=== PATIENT | male | born 1945 | race Caucasian/White ===

== ENCOUNTER 2019-02-27 14:28 | Inpatient (IN) | payer MEDICARE ==
[2019-02-27] MEDS ORDERED: VANCOMYCIN HCL INJ 1000 MG VIAL IV ONE (15:37)
[2019-02-27] MEDS ORDERED: CEFTRIAXONE 1 GM/D5W RTU 1 GM/50 ML RTUPB IV ONE (15:38)
--- NOTE | 2019-02-27 15:41 | ER Document Report ---
ED Medical Screen (RME) - General Chief Complaint: Wound Infection Stated Complaint: POSSIBLE FOOT INFECTION Time Seen by Provider: 02/27/19 15:32 Primary Care Provider: BRIDGER DELGADO PA-C [Primary Care Provider] - Follow up as needed TRAVEL OUTSIDE OF THE [place] IN LAST 30 DAYS: No - HPI Notes: 02/27/19 15:38 Patient is a 73-year-old male with no significant past medical history who presents to the emergency department per the direction of wound clinic for evaluation of possible osteomyelitis/gangrene to the left foot. Patient states that it started with a plantar wart that he was taking out on his own a little over 2 months ago. Patient was then on antibiotics for 1.5 months, but the wound began getting worse which prompted him to get seen by wound clinic. Lalo patel has been routinely seen by wound clinic over the past 3 weeks, but over the past week it has significantly worsened. He is otherwise eating and drinking without difficulty. No other concerns or complaints. Denies drug allergies. Denies GOMES, fever, neck pain, URI, CP, SOB, Abd pain. I have treated and performed a rapid initial assessment of this patient. A comprehensive ED assessment and evaluation of the patient, analysis of test results and completion of medical decision making process will be conducted by additional ED providers. PHYSICAL EXAMINATION: GENERAL: Well-appearing, well-nourished and in no acute distress. A&Ox4. Answers questions appropriately. LUNGS: Breath sounds clear to auscultation bilaterally and equal. No wheezes rales or rhonchi. HEART: Regular rate and rhythm without murmurs, rubs, gallops. Left foot: 3 areas of deep wounds noted with foul smell and some necrosis present. + erythema, swelling, and tenderness to the great toe/dorsal foot. Wound are primarily distal/medial dorsal and one plantar. - Related Data Allergies/Adverse Reactions: No Known Allergies Allergy (Unverified 05/18/14 10:23) Past Medical History - Past Medical History Cardiac Medical History: Denies: Hx Coronary Artery Disease, Hx Hypertension Endocrine Medical History: Denies: Hx Diabetes Mellitus Type 1, Hx Diabetes Mellitus Type 2 - Immunizations Hx Diphtheria, Pertussis, Tetanus Vaccination: No Physical Exam - Vital signs Vitals: Temp Pulse Resp BP Pulse Ox 98.2 F 97 20 138/57 H 96 02/27/19 14:49 02/27/19 14:49 02/27/19 14:49 02/27/19 14:49 02/27/19 14:49 Course - Vital Signs Vital signs: Temp Pulse Resp BP Pulse Ox 98.2 F 97 20 138/57 H 96 02/27/19 14:49 02/27/19 14:49 02/27/19 14:49 02/27/19 14:49 02/27/19 14:49 Doctor's Discharge - Discharge Referrals: BRIDGER DELGADO, PAApolinarC [Primary Care Provider] - Follow up as needed
[2019-02-27 16:38] LABS: ABSOLUTE BASOPHILS # (AUTO) 0.1 10^3/uL (0.0-0.2); ABSOLUTE NEUT (AUTO) 10.4 10^3/uL (1.7-8.2); BASOPHILS % (AUTO) 0.4 % (0-2); EOSINOPHILS % (AUTO) 0.3 % (0-6); HEMATOCRIT 44.7 % (37.9-51.0); LYMPHOCYTES % (AUTO) 7.3 % (13-45); MEAN CORPUSCULAR HEMOGLOBIN 36.1 pg (27.0-33.4); MEAN CORPUSCULAR HGB CONC 33.6 g/dL (32.0-36.0); MEAN CORPUSCULAR VOLUME 107 fl (80-97); MONOCYTES % (AUTO) 14.6 % (3-13); PLATELET COUNT 295 10^3/uL (150-450); RED BLOOD COUNT 4.16 10^6/uL (4.35-5.55); RED CELL DISTRIBUTION WIDTH 17.5 % (11.5-14.0); SEGMENTED NEUTROPHILS % (AUTO) 77.4 % (42-78); TOTAL CELLS COUNTED % (AUTO) 100 %; WHITE BLOOD COUNT 13.4 10^3/uL (4.0-10.5)
--- NOTE | 2019-02-27 16:47 | RADIOLOGY REPORT (SQ) ---
EXAM DESCRIPTION: FOOT LEFT COMPLETE COMPLETED DATE/TIME: 02/27/2019 4:32 pm REASON FOR STUDY: ?osteomyelitis, pain/infection COMPARISON: None. NUMBER OF VIEWS: Three views. TECHNIQUE: AP, lateral and oblique radiographic images acquired of the left foot. LIMITATIONS: None. FINDINGS: MINERALIZATION: Normal. BONES: At the great toe, lateral aspect distal phalanx there is demineralization worrisome for osteom yelitis. JOINTS: No effusions. SOFT TISSUES: In the medial left midfoot, along the foot arch there is a 3 cm diameter soft tissue ul cer without radiopaque foreign body. No underlying bony demineralization or periostitis of the 1st m etatarsal to suggest osteomyelitis OTHER: Moderate-sized plantar and dorsal calcaneal spurs IMPRESSION: Bony resorption along the lateral aspect great toe distal phalanx worrisome for early ch anges of osteomyelitis. 3 cm soft tissue ulcer along the medial left foot arch without underlying aggressive bony demineraliz ation or periostitis at the 1st metatarsal. TECHNICAL DOCUMENTATION: JOB ID: [id number] [employer]- All Rights Reserved Reading location - IP/workstation name: [email or web address]
[2019-02-27 17:01] LABS: ALANINE AMINOTRANSFERASE 11 U/L (21-72); ALBUMIN 3.9 g/dL (3.5-5.0); ALKALINE PHOSPHATASE 86 U/L (38-126); ANION GAP 12 (5-19); ASPARTATE AMINO TRANSFERASE 14 U/L (17-59); BILIRUBIN,DIRECT 0.5 mg/dL (0.0-0.4); BILIRUBIN,TOTAL 0.8 mg/dL (0.2-1.3); BLOOD UREA NITROGEN 16 mg/dL (7-20); CALCIUM 9.8 mg/dL (8.4-10.2); CARBON DIOXIDE 26 mmol/L (22-30); CHLORIDE 98 mmol/L (98-107); GLUCOSE 111 mg/dL (75-110); POTASSIUM 4.7 mmol/L (3.6-5.0); SODIUM 136.4 mmol/L (137-145)
[2019-02-27 17:36] LABS: C-REACTIVE PROTEIN 24.4 mg/L (<10.0)
--- NOTE | 2019-02-27 22:01 | ER Document Report ---
ED General - General Chief Complaint: Wound Infection Stated Complaint: POSSIBLE FOOT INFECTION Time Seen by Provider: 02/27/19 15:32 Primary Care Provider: BRIDGER DELGADO PA-C [ALLIED HEALTH PROFESSIONAL] - Follow up as needed Notes: Patient is a pleasant 73-year-old male who presents with complaint of infection and necrosis of the left foot. Patient says 3 weeks ago he had what he thought was a plantar wart on the left big toe. He twisted and pulled off. He then went to his primary care doctor placed him on antibiotic. His foot is continue worse and therefore he saw his doctor again was referred to wound clinic. He went to wound clinic today and was told to come to the ER. He is not a diabetic. The only medication he takes on a regular basis is aspirin. He has some facial droop on the right side related to obvious polio infection. He is otherwise healthy. No other complaints at this time. TRAVEL OUTSIDE OF THE [place] IN LAST 30 DAYS: No - Related Data Allergies/Adverse Reactions: No Known Allergies Allergy (Unverified 05/18/14 10:23) Past Medical History - Social History Smoking Status: Current Every Day Smoker Frequency of alcohol use: None Drug Abuse: None Family History: Reviewed & Not Pertinent Patient has suicidal ideation: No Patient has homicidal ideation: No - Past Medical History Cardiac Medical History: Denies: Hx Coronary Artery Disease, Hx Hypertension Endocrine Medical History: Denies: Hx Diabetes Mellitus Type 1, Hx Diabetes Mellitus Type 2 Renal/ Medical History: Denies: Hx Peritoneal Dialysis - Immunizations Hx Diphtheria, Pertussis, Tetanus Vaccination: No Review of Systems - Review of Systems Notes: My Normal Review Basic REVIEW OF SYSTEMS: CONSTITUTIONAL : Denies fever, chills, or sweats. Denies recent illness. EENT: Denies eye, ear, throat, or mouth pain or symptoms. Denies nasal or s inus congestion. RESPIRATORY: Denies cough, cold, or chest congestion. Denies shortness of breath, difficulty breathing, or wheezing. GASTROINTESTINAL: Denies abdominal pain. Denies nausea, vomiting, or diarrhea. MUSCULOSKELETAL: Infection of left foot. SKIN: Denies rash or skin lesions. HEMATOLOGIC : Denies easy bruising or bleeding. NEUROLOGICAL: Denies sensory or motor loss. ALL OTHER SYSTEMS REVIEWED AND NEGATIVE. Physical Exam - Vital signs Vitals: Temp Pulse Resp BP Pulse Ox 98.2 F 97 20 138/57 H 96 02/27/19 14:49 02/27/19 14:49 02/27/19 14:49 02/27/19 14:49 02/27/19 14:49 - Notes Notes: General Appearance: Well nourished, alert, cooperative, no acute distress, no obvious discomfort. Vitals: reviewed, See vital signs table. Eyes: PERRL, EOMI, Conjuctiva clear Lungs: No wheezing, No rales, No rhonci, No accessory muscle use, good air exchange bilaterally. Heart: Normal rate, Regular rythm, No murmur, no rub Abdomen: Normal BS, soft, No rigidity, No abdominal tenderness Extremities: strength 5/5 in all extremities, good pulses in all extremities patient has most complete necrosis of the left big toe. He then has swelling and redness going into his foot especially on the medial aspect. He then has necrosis of portions of the soft tissue on the medial aspect of the left foot. Skin: warm, dry, appropriate color, no rash Neuro: speech clear, oriented x 3, normal affect, responds appropriately to questions. Course - Re-evaluation Re-evalutation: 02/27/19 22:01 I evaluate the patient's foot and gangrenous think probably needs urgent surgical attention. I have called our general surgeon, Dr. Watkins, is currently putting in a central line and will call me back as soon as he is done. 02/27/19 23:19 Dr. Watkins did evaluate the patient and says he will admit the to his service and keep him n.p.o. and take him to the OR in the morning. Dictation of this chart was performed using voice recognition software; therefore, there may be some unintended grammatical errors. 02/27/19 23:19 - Vital Signs Vital signs: Temp Pulse Resp BP Pulse Ox 98.2 F 97 20 138/57 H 96 02/27/19 14:49 02/27/19 14:49 02/27/19 14:49 02/27/19 14:49 02/27/19 14:49 - Laboratory Result Diagrams: 02/27/19 16:12 02/27/19 16:12 Laboratory results interpreted by me: 02/27/19 02/27/19 02/27/19 16:12 16:12 16:12 WBC 13.4 H RBC 4.16 L MCV 107 H MCH 36.1 H RDW 17.5 H Lymphocytes % 7.3 L Monocytes % 14.6 H Absolute Neutrophils 10.4 H Absolute Monocytes 2.0 H Sodium 136.4 L Glucose 111 H Direct Bilirubin 0.5 H AST 14 L ALT 11 L C-Reactive Protein 24.4 H Total Protein 9.0 H Discharge - Discharge Clinical Impression: Gangrene of foot Condition: Stable Disposition: ADMITTED INPATIENT Admitting Provider: Surgicalist
[2019-02-28] MEDS ORDERED: PIPERACILLIN/TAZOBACTAM 3.375 GM VIAL IV PRN (00:54)
[2019-02-28] MEDS ORDERED: PIPERACILLIN SODIUM/TAZOBACTAM 3.375 GM in NORMAL SALINE 100 ML IV ONE (01:00)
--- NOTE | 2019-02-28 07:14 | HISTORY AND PHYSICAL E ---
History and Physical NAME: JACQUES PETER : 1945 AGE: 73Y ADMITTED: 02/27/2019 ROOM: CHIEF COMPLAINT: Pains in left foot. HISTORY OF PRESENT ILLNESS: This is a 73-year-old male who removed a plantar wart on the left foot about 6 weeks ago. He claimed he just twisted it and removed it. 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 He walks with a cane. About 4 weeks later, noted to have swelling and redness of the left foot and consulted an urgent care center in [place] and subsequently [facility]. The patient was seen at the [facility] on 02/27/2019 where some debridement was done and patient subsequently sent to ED. The patient admits to having warm and cold sensation off and on for the past week, but denies any fever. He claims the left foot was red all the way up to almost the knee in the past week and seems to have improved. He was on p.o. antibiotics given by the Urgent Care Center. PAST MEDICAL HISTORY: History of hypertension, but does not take any medications. He is taking baby aspirin, which he claimed was for his hypertension. PAST SURGICAL HISTORY: History of surgery for left clubfoot at age 7. REVIEW OF SYSTEMS: Denies any fever. Admits to having cold and warm sensation off and on for the past week. Denies any headaches, cough, chest pains, abdominal pains, diarrhea, or constipation. No nausea or vomiting. The patient walks with a cane because the left leg is slightly shorter than the right due to his polio. Admits to having some pains along the left foot. ALLERGIES: None known. SOCIAL HISTORY: Smokes 2 packs a day since age 17, so he is about at least 100 pack years. FAMILY HISTORY: Negative for diabetes. PHYSICAL EXAMINATION: GENERAL: Well-developed, well-nourished 73-year-old male in no severe distress. NECK: Supple. No thyromegaly. LUNGS: Clear. HEART: Regular sinus rhythm. NEUROLOGIC: The patient is alert and oriented x3. ABDOMEN: Soft and nontender. EXTREMITIES: The left calf is smaller than the right calf due to polio. The left foot is swollen and erythematous with ulceration along the left medial midfoot roughly about 2 x 4 cm. There is marked swelling and redness of the left big toe with a small amount of purulent material from the base of the toenail. There is also a small laceration type of wound at the base of the big toe. There is some redness just above the ankle and going up to the mid calf. I could not palpate any left ankle pulses or popliteal pulse; however, the foot is warm. IMPRESSION: 1. Infected left foot. 2. Chronic smoker. 3. History of polio with left clubfoot surgery in the past. PLAN: 1. Start IV antibiotics. 2. Keep n.p.o. from midnight. 3. Amputation of the left big toe and debridement and possible left below-knee amputation. There appears to be decreased blood flow with absence of pulses in the left ankle and will likely need below-knee amputation. This was discussed with the patient and his at length. DICTATING PHYSICIAN: LORRAINE ACEVEDO M.D. [id number] PHY#: [id number] ID: [id number] JOB#: [id number] ACCT: [id number] cc: > MTDD
[2019-02-28] MEDS: PIPERACILLIN SODIUM/TAZOBACTAM 3.375 GM in NORMAL SALINE 100 ML IV SCH ×3 (10:35→21:23)
[2019-02-28] MEDS ORDERED: LIDOCAINE 2% INJ-PF (100 MG/5 ML) SYRINGE ONE (11:43)
[2019-02-28] MEDS ORDERED: MIDAZOLAM 2 MG/2 ML INJ ONE (11:44)
[2019-02-28] MEDS ORDERED: PROPOFOL INJ 200 MG/20 ML VIAL IV ONE (11:44)
[2019-02-28] MEDS ORDERED: FENTANYL CITRATE INJ/PF 100 MCG/2 ML AMPUL ONE (11:44)
[2019-02-28] MEDS ORDERED: ONDANSETRON HCL INJ/PF 4 MG/2 ML SDV ONE (11:44)
[2019-02-28] MEDS ORDERED: FENTANYL CITRATE INJ/PF 100 MCG/2 ML AMPUL IV PRN ×3 (13:21)
[2019-02-28] MEDS ORDERED: PROMETHAZINE HCL INJ 25 MG/1 ML VIAL IV PRN ×2 (13:21)
[2019-02-28] MEDS ORDERED: DIPHENHYDRAMINE HCL 50 MG/ML VIAL IV PRN (13:21)
[2019-02-28] MEDS ORDERED: OXYCODONE-ACETAMINOPHEN 5-325 MG TABLET PO PRN ×2 (13:21)
[2019-02-28] MEDS ORDERED: ONDANSETRON HCL INJ/PF 4 MG/2 ML SDV IV PRN (13:21)
[2019-02-28] MEDS ORDERED: MEPERIDINE HCL/PF INJ 25 MG/1 ML DISP.SYRIN IV PRN (13:21)
[2019-02-28] MEDS ORDERED: MORPHINE SULFATE 10 MG/ML INJ IV PRN (14:53)
--- NOTE | 2019-02-28 15:07 | Operative Report ---
Nonrecallable Operative Report DATE OF SURGERY: 02/28/19 PREOPERATIVE DIAGNOSIS: gangrene left foot POSTOPERATIVE DIAGNOSIS: gangrene left foot OPERATION: left below knee amputation ANESTHESIA: Spinal TISSUE REMOVED OR ALTERED: left lower extremitiy COMPLICATIONS: none ESTIMATED BLOOD LOSS: 100cc INTRAOPERATIVE FINDINGS: see dictation PROCEDURE: see dictation
--- NOTE | 2019-02-28 15:24 | OPERATIVE REPORT E ---
Operative Report NAME: JACQUES PETER : 1945 AGE: 73Y DATE OF SURGERY: 02/28/2019 ROOM: 434 PREOPERATIVE DIAGNOSIS: GANGRENE LEFT FOOT. POSTOPERATIVE DIAGNOSIS: GANGRENE LEFT FOOT. OPERATION: LEFT BELOW KNEE AMPUTATION. SURGEON: CARLA PIEDRA M.D. INDICATIONS FOR OPERATION: This is a 73-year-old male who has a chronic ulcer and infection of his left foot at dorsum of his left foot as well as the left great toe. After considerable discussion with the patient and family, it was elected that he undergo a left below knee amputation. PROCEDURE: The patient was brought to the operating room in awake, alert, and stable condition, placed on the operating table in supine position. Spinal anesthetic was administered by Anesthesia. The left foot and leg were prepped and draped in the usual sterile fashion for this procedure. After an appropriate timeout and site verification, a racquet-type incision was made 5 cm below the left patella on the left calf. This was continued anteriorly, laterally, and posteriorly with the 10 blade. Once this was completed, we doubly ligated the saphenous vein between hemostats with 2-0 Vicryl suture. We continued our dissection down through the superficial muscles, the tibialis muscle and the posterior gastrocnemius muscles and soleus muscles with Bovie cautery. The anterior and posterior tibial arteries were controlled between clamps and divided, and then tied off with 2-0 Vicryl suture. The peroneal artery was handled similarly. These vessels were all divided as were the veins. We came through the posterior muscles with Bovie cautery. We then used a periosteal elevator to mobilize the periosteum away from the tibia. It was divided with the bone saw. Fibula was handled similarly and the specimen was removed. Once it was removed, the stump was irrigated copiously with normal saline and checked for hemostasis. The gastrocnemius muscles were then approximated from posterior to anterior to the superficial fascia on top of the tibia with interrupted 2-0 Vicryl sutures. The subcutaneous tissue was then reapproximated similarly, and then the skin was reapproximated with standard skin clips, which completed the procedure. A sterile Xeroform dressing was applied, and an Devyn wrap was applied. The patient was then transferred to recovery in stable condition. Estimated blood loss was 100 mL. Sponge and needle counts were correct x2. DICTATING PHYSICIAN: CARLA PIEDRA M.D. [id number] PHY#: [id number] ID: [id number] JOB#: [id number] ACCT: [id number] cc:CARLA PIEDRA M.D. >
[2019-02-28] MEDS: DEXTROSE 5%-LACTATED RINGERS 1,000 ML IV PRN (18:20)
--- NOTE | 2019-02-28 19:31 | EKG REPORT ---
SEVERITY:- ABNORMAL ECG - SINUS RHYTHM VENTRICULAR PREMATURE COMPLEX LEFT BUNDLE BRANCH BLOCK : Confirmed by: Vaishali Singh MD 28-Feb-2019 19:30:31
[2019-02-28] MEDS ORDERED: KETOROLAC TROMETHAMINE INJ/PF 30 MG/1 ML SDV ONE (21:22)
[2019-02-28] MEDS: FAMOTIDINE 20 MG TABLET PO SCH (21:24)
[2019-02-28] MEDS: KETOROLAC TROMETHAMINE INJ/PF 30 MG/1 ML SDV IV PRN (21:57)
[2019-02-28] MEDS: MORPHINE SULFATE 10 MG/ML INJ IV PRN (22:29)
[2019-03-01] MEDS: MORPHINE SULFATE 10 MG/ML INJ IV PRN (02:46)
[2019-03-01] MEDS: ACETAMINOPHEN 1,000 MG/100 ML RTUPB IV PRN ×2 (02:49→12:37)
[2019-03-01] MEDS: PIPERACILLIN SODIUM/TAZOBACTAM 3.375 GM in NORMAL SALINE 100 ML IV SCH ×4 (02:49→21:25)
[2019-03-01 05:36] LABS: ABSOLUTE BASOPHILS # (AUTO) 0.1 10^3/uL (0.0-0.2); ABSOLUTE NEUT (AUTO) 11.9 10^3/uL (1.7-8.2); BASOPHILS % (AUTO) 0.6 % (0-2); EOSINOPHILS % (AUTO) 0.1 % (0-6); HEMATOCRIT 37.1 % (37.9-51.0); LYMPHOCYTES % (AUTO) 6.3 % (13-45); MEAN CORPUSCULAR HGB CONC 33.9 g/dL (32.0-36.0); MEAN CORPUSCULAR VOLUME 106 fl (80-97); MONOCYTES % (AUTO) 18.7 % (3-13); PLATELET COUNT 221 10^3/uL (150-450); RED BLOOD COUNT 3.49 10^6/uL (4.35-5.55); RED CELL DISTRIBUTION WIDTH 17.3 % (11.5-14.0); SEGMENTED NEUTROPHILS % (AUTO) 74.3 % (42-78); TOTAL CELLS COUNTED % (AUTO) 100 %
[2019-03-01 05:40] LABS: HEMOGLOBIN 12.6 g/dL (13.5-17.0)
[2019-03-01] MEDS: KETOROLAC TROMETHAMINE INJ/PF 30 MG/1 ML SDV IV PRN (05:50)
[2019-03-01 06:01] LABS: ALANINE AMINOTRANSFERASE 17 U/L (21-72); ALBUMIN 3.2 g/dL (3.5-5.0); ALKALINE PHOSPHATASE 65 U/L (38-126); ANION GAP 9 (5-19); ASPARTATE AMINO TRANSFERASE 17 U/L (17-59); BILIRUBIN,DIRECT 0.6 mg/dL (0.0-0.4); BILIRUBIN,TOTAL 1.1 mg/dL (0.2-1.3); BLOOD UREA NITROGEN 17 mg/dL (7-20); CALCIUM 8.8 mg/dL (8.4-10.2); CARBON DIOXIDE 25 mmol/L (22-30); CHLORIDE 101 mmol/L (98-107); GLUCOSE 129 mg/dL (75-110); POTASSIUM 4.4 mmol/L (3.6-5.0); SODIUM 134.9 mmol/L (137-145); TOTAL PROTEIN 7.4 g/dL (6.3-8.2)
[2019-03-01] MEDS: DEXTROSE 5%-LACTATED RINGERS 1,000 ML IV PRN ×2 (06:35→16:36)
[2019-03-01] MEDS: FAMOTIDINE 20 MG TABLET PO SCH ×2 (09:34→21:25)
--- NOTE | 2019-03-01 12:04 | PDOC PROGRESS REPORT ---
Subjective Progress Note for:: 03/01/19 Reason For Visit: INFECTED LEFT FOOT,HTN Physical Exam Vital Signs: Temp Pulse Resp BP Pulse Ox 98.1 F 80 18 122/50 L 97 03/01/19 08:30 03/01/19 08:30 03/01/19 08:30 03/01/19 08:30 03/01/19 08:30 Intake & Output 02/28/19 03/01/19 03/02/19 06:59 06:59 06:59 Intake Total 150 2600 Output Total 350 50 Balance -200 2550 Weight 107.4 kg 105.7 kg Results Laboratory Results: 03/01/19 05:20 03/01/19 05:20 03/01/19 03/01/19 05:20 05:20 WBC 16.0 H RBC 3.49 L Hgb 12.6 L D Hct 37.1 L MCV 106 H MCH 36.0 H MCHC 33.9 RDW 17.3 H Plt Count 221 Seg Neutrophils % 74.3 Lymphocytes % 6.3 L Monocytes % 18.7 H Eosinophils % 0.1 Basophils % 0.6 Absolute Neutrophils 11.9 H Absolute Lymphocytes 1.0 Absolute Monocytes 3.0 H Absolute Eosinophils 0.0 Absolute Basophils 0.1 Sodium 134.9 L Potassium 4.4 Chloride 101 Carbon Dioxide 25 Anion Gap 9 BUN 17 Creatinine 0.99 Est GFR ( Amer) > 60 Est GFR (Non-Af Amer) > 60 Glucose 129 H Calcium 8.8 Total Bilirubin 1.1 AST 17 ALT 17 L Alkaline Phosphatase 65 Total Protein 7.4 Albumin 3.2 L Impressions: Foot X-Ray 02/27/19 15:36 IMPRESSION: Bony resorption along the lateral aspect great toe distal phalanx worrisome for early changes of osteomyelitis. 3 cm soft tissue ulcer along the medial left foot arch without underlying aggressive bony demineralization or periostitis at the 1st metatarsal. Assessment & Plan - Diagnosis (1) Gangrene of foot Is this a current diagnosis for this admission?: Yes - Plan Summary Plan Summary: This is a 73-year-old male status post left below-knee amputation for gangrene of the foot. The patient is doing well today. His pain is controlled. His dressing is intact, and dry. I will leave the dressing in place for now. Add Neurontin for phantom limb syndrome. Pain is relatively well controlled. PT/OT/discharge planning
[2019-03-01] MEDS: GABAPENTIN 300 MG CAPSULE PO SCH ×2 (14:45→21:25)
[2019-03-02] MEDS: PIPERACILLIN SODIUM/TAZOBACTAM 3.375 GM in NORMAL SALINE 100 ML IV SCH ×4 (03:35→21:20)
[2019-03-02] MEDS: DEXTROSE 5%-LACTATED RINGERS 1,000 ML IV PRN ×2 (04:48→18:25)
[2019-03-02] MEDS: GABAPENTIN 300 MG CAPSULE PO SCH ×3 (06:28→21:20)
[2019-03-02] MEDS: FAMOTIDINE 20 MG TABLET PO SCH ×2 (09:46→22:22)
[2019-03-02] MEDS: KETOROLAC TROMETHAMINE INJ/PF 30 MG/1 ML SDV IV PRN (20:31)
--- NOTE | 2019-03-02 22:14 | PDOC PROGRESS REPORT ---
Subjective Progress Note for:: 03/02/19 Reason For Visit: INFECTED LEFT FOOT,HTN Physical Exam Vital Signs: Temp Pulse Resp BP Pulse Ox 98.4 F 87 15 163/63 H 97 03/02/19 15:14 03/02/19 15:14 03/02/19 15:14 03/02/19 15:14 03/02/19 15:14 Intake & Output 03/01/19 03/02/19 03/03/19 06:59 06:59 06:59 Intake Total 2600 3517 1972 Output Total 50 875 350 Balance 2550 2642 1622 Weight 105.7 kg 105.3 kg Results Laboratory Results: 03/01/19 05:20 03/01/19 05:20 Impressions: Foot X-Ray 02/27/19 15:36 IMPRESSION: Bony resorption along the lateral aspect great toe distal phalanx worrisome for early changes of osteomyelitis. 3 cm soft tissue ulcer along the medial left foot arch without underlying aggressive bony demineralization or periostitis at the 1st metatarsal. Assessment & Plan - Diagnosis (1) Gangrene of foot Is this a current diagnosis for this admission?: Yes - Plan Summary Plan Summary: This is a 73-year-old male status post left below-knee amputation for gangrene of the foot. The patient is doing well today. His pain is controlled. I removed and replaced the patient's dressing today. There is some bruising at the, but there is no sign of infection. Cont Neurontin for phantom limb syndrome. Pain is relatively well controlled. PT/OT/discharge planning
[2019-03-03] MEDS: PIPERACILLIN SODIUM/TAZOBACTAM 3.375 GM in NORMAL SALINE 100 ML IV SCH ×4 (03:51→21:23)
[2019-03-03] MEDS: GABAPENTIN 300 MG CAPSULE PO SCH ×3 (06:19→21:23)
[2019-03-03] MEDS: DEXTROSE 5%-LACTATED RINGERS 1,000 ML IV PRN ×2 (06:24→17:11)
--- NOTE | 2019-03-03 07:28 | OPERATIVE REPORT E ---
Operative Report NAME: JACQUES PETER : 1945 AGE: 73Y DATE OF SURGERY: 02/28/2019 ROOM: 434 PREOPERATIVE DIAGNOSIS: GANGRENE LEFT FOOT. POSTOPERATIVE DIAGNOSIS: GANGRENE LEFT FOOT. OPERATION: LEFT BELOW KNEE AMPUTATION. SURGEON: CARLA PIEDRA M.D. INDICATION FOR SURGERY: This is a 73-year-old male who has a chronic abscess on his left foot at the dorsum and base of the right metatarsal. In addition to that, he has a necrotic great toe and cellulitis extending up his leg. After considerable discussion with the family and the patient, it was elected that we treat this with a left below knee amputation. PROCEDURE: @ DICTATING PHYSICIAN: CARLA PIEDRA M.D. [id number] PHY#: [id number] ID: [id number] JOB#: [id number] ACCT: [id number] cc:CARLA PIEDRA M.D. >
[2019-03-03 08:55] LABS: ABSOLUTE BASOPHILS # (AUTO) 0.1 10^3/uL (0.0-0.2); ABSOLUTE EOSINOPHILS # (AUTO) 0.1 10^3/uL (0.0-0.6); ABSOLUTE LYMPHOCYTES (AUTO) 1.1 10^3/uL (0.5-4.7); ABSOLUTE MONOCYTES (AUTO) 1.6 10^3/uL (0.1-1.4); ABSOLUTE NEUT (AUTO) 5.7 10^3/uL (1.7-8.2); BASOPHILS % (AUTO) 1.2 % (0-2); EOSINOPHILS % (AUTO) 1.6 % (0-6); HEMATOCRIT 33.2 % (37.9-51.0); HEMOGLOBIN 11.2 g/dL (13.5-17.0); LYMPHOCYTES % (AUTO) 12.8 % (13-45); MEAN CORPUSCULAR HEMOGLOBIN 36.3 pg (27.0-33.4); MEAN CORPUSCULAR HGB CONC 33.7 g/dL (32.0-36.0); MEAN CORPUSCULAR VOLUME 108 fl (80-97); MONOCYTES % (AUTO) 18.9 % (3-13); PLATELET COUNT 201 10^3/uL (150-450); RED BLOOD COUNT 3.08 10^6/uL (4.35-5.55); SEGMENTED NEUTROPHILS % (AUTO) 65.5 % (42-78); TOTAL CELLS COUNTED % (AUTO) 100 %; WHITE BLOOD COUNT 8.7 10^3/uL (4.0-10.5)
[2019-03-03 09:26] LABS: ALANINE AMINOTRANSFERASE 20 U/L (21-72); ALBUMIN 2.7 g/dL (3.5-5.0); ALKALINE PHOSPHATASE 53 U/L (38-126); ASPARTATE AMINO TRANSFERASE 17 U/L (17-59); BILIRUBIN,DIRECT 0.4 mg/dL (0.0-0.4); BILIRUBIN,TOTAL 0.5 mg/dL (0.2-1.3); BLOOD UREA NITROGEN 9 mg/dL (7-20); CALCIUM 8.4 mg/dL (8.4-10.2); CHLORIDE 104 mmol/L (98-107); GLUCOSE 122 mg/dL (75-110); POTASSIUM 4.1 mmol/L (3.6-5.0); TOTAL PROTEIN 6.4 g/dL (6.3-8.2)
[2019-03-03 09:34] LABS: ANION GAP 5 (5-19); CARBON DIOXIDE 28 mmol/L (22-30); SODIUM 136.5 mmol/L (137-145)
[2019-03-03] MEDS: FAMOTIDINE 20 MG TABLET PO SCH ×2 (09:50→21:23)
[2019-03-03] MEDS: ACETAMINOPHEN 1,000 MG/100 ML RTUPB IV PRN (13:51)
--- NOTE | 2019-03-03 15:27 | PDOC PROGRESS REPORT ---
Subjective Progress Note for:: 03/03/19 Subjective:: Patient has no complaints; would like to get out; is motivated. Reason For Visit: INFECTED LEFT FOOT,HTN Physical Exam Vital Signs: Temp Pulse Resp BP Pulse Ox 98.0 F 76 16 154/56 H 97 03/03/19 11:19 03/03/19 11:19 03/03/19 11:19 03/03/19 11:19 03/03/19 11:19 Intake & Output 03/02/19 03/03/19 03/04/19 06:59 06:59 06:59 Intake Total 3517 3372 300 Output Total 875 550 Balance 2642 2822 300 Weight 105.3 kg 104.3 kg General appearance: PRESENT: no acute distress Vascular exam: PRESENT: other - Stump dressing dry and intact. Results Laboratory Results: 03/03/19 08:30 03/03/19 08:30 03/03/19 03/03/19 08:30 08:30 WBC 8.7 RBC 3.08 L Hgb 11.2 L Hct 33.2 L MCV 108 H MCH 36.3 H MCHC 33.7 RDW 17.0 H Plt Count 201 Seg Neutrophils % 65.5 Lymphocytes % 12.8 L Monocytes % 18.9 H Eosinophils % 1.6 Basophils % 1.2 Absolute Neutrophils 5.7 Absolute Lymphocytes 1.1 Absolute Monocytes 1.6 H Absolute Eosinophils 0.1 Absolute Basophils 0.1 Sodium 136.5 L Potassium 4.1 Chloride 104 Carbon Dioxide 28 Anion Gap 5 BUN 9 Creatinine 0.77 Est GFR ( Amer) > 60 Est GFR (Non-Af Amer) > 60 Glucose 122 H Calcium 8.4 Total Bilirubin 0.5 AST 17 ALT 20 L Alkaline Phosphatase 53 Total Protein 6.4 Albumin 2.7 L Impressions: Foot X-Ray 02/27/19 15:36 IMPRESSION: Bony resorption along the lateral aspect great toe distal phalanx worrisome for early changes of osteomyelitis. 3 cm soft tissue ulcer along the medial left foot arch without underlying aggressive bony demineralization or periostitis at the 1st metatarsal. Assessment & Plan - Diagnosis (1) Gangrene of foot Is this a current diagnosis for this admission?: Yes Plan: Patient is now postoperative day 3 status post left below the knee amputation by Dr. Miller, doing well, no complications. Recommendations: 1. Ordered physical therapy consultation; patient should be able to get up with walker 2. Patient can return to [facility] to see Dr. Miller in a pproximately 1 week. 3. Please reconsult if needed.
[2019-03-04] MEDS: PIPERACILLIN SODIUM/TAZOBACTAM 3.375 GM in NORMAL SALINE 100 ML IV SCH ×4 (04:07→21:38)
[2019-03-04] MEDS: GABAPENTIN 300 MG CAPSULE PO SCH ×3 (05:01→21:38)
[2019-03-04] MEDS: MORPHINE SULFATE 10 MG/ML INJ IV PRN ×3 (05:01→14:54)
[2019-03-04] MEDS: FAMOTIDINE 20 MG TABLET PO SCH ×2 (10:01→21:38)
--- NOTE | 2019-03-04 14:20 | PDOC CONSULTATION ---
Consultation Consult Date: 03/04/19 Consult reason:: Evaluation for admission to acute inpatient rehabilitation History of Present Illness Admission Date/PCP: 02/28/19 00:03 LISANDRO LILLY PA-C Patient complains of: Left lower extremity pain History of Present Illness: JACQUES PETER is a 73-year-old male with past medical history of hypertension, arthritis, and polio resulting in right-sided facial droop and short/atrophied left lower extremity admitted to [facility] on 02/27/2019 with gangrene of the left foot. The patient had had a plantar wart on that foot that he twisted and pulled off, which subsequently became infected. He was evaluated by general surgery Dr. Fabricio Miller, who ultimately performed a left below the knee amputation on 02/28/2019. Postoperative course has included acute blood loss anemia not requiring blood transfusion. Physical medicine and rehab ilitation consultation was requested to evaluate the patient for admission to acute inpatient rehabilitation. Today, the patient complains of minimal surgical pain at the left lower extremity surgical site. He denies phantom pain or sensation. His last bowel movement was this morning, and he denies trouble with urination. Past Medical History Cardiac Medical History: Denies: Coronary Artery Disease, Hypertension Endocrine Medical History: Denies: Diabetes Mellitus Type 1, Diabetes Mellitus Type 2 Past Surgical History Past Surgical History: Reports: None Social History Smoking Status: Current Every Day Smoker Cigarettes Packs Per Day: 2 Number of Years Smokin Frequency of Alcohol Use: None Hx Recreational Drug Use: No Drugs: None Hx Prescription Drug Abuse: No Past Social History Note: Jacques Peter lives with his in a 1 level home with 0 steps to enter and 0 steps to the bedroom and bathroom. He smoked 2 packs/day for many decades and quit recently and he drank 1 pint of bourbon daily and quit 6 months ago. Prior Functional Status: Active and independent with mobility and all ADLs. Ambulates without an assist device. Current Functional Status: Per therapy notes, the patient currently requires modified independence for bed mobility and moderate assistance for transfers. - Advance Directive Resuscitation Status: Full Code Family History Family History: Reviewed & Not Pertinent Parental Family History Reviewed: Yes Children Family History Reviewed: Yes Sibling(s) Family History Reviewed.: Yes Medication/Allergy Home Medications: Aspirin [Ecotrin 81 mg EC Tablet] 81 mg PO DAILY 02/28/19 Allergies/Adverse Reactions: No Known Allergies Allergy (Unverified 05/18/14 10:23) Review of Systems Review of Systems: Constitutional: No fevers, chills, sweats, weight loss Eye: No recent visual problems, no blurry vision, no double vision ENMT: No ear pain, nasal congestion, sore throat Respiratory: No shortness of breath, cough, sputum production Cardiovascular: No chest pain, palpitations, syncope Gastrointestinal: No nausea, vomiting, diarrhea, abdominal pain Genitourinary: No hematuria, dysuria, flank or suprapubic pain Melquiades/Lymph: Negative for bruising tendency, swollen lymph glands Endocrine: Negative for excessive thirst, excessive hunger, extreme fatigue Musculoskeletal: Status post left below the knee amputation. Minimal surgical pain. Integumentary: No rash, pruritus, abrasions Neurologic: No headaches, numbness, speech problems. Positive for focal weakness of the left lower extremity secondary to pain. Psychiatric: No anxiety, depression Physical Exam Vital Signs: Temp Pulse Resp BP Pulse Ox 98.1 F 66 18 152/60 H 97 03/04/19 12:00 03/04/19 12:00 03/04/19 12:00 03/04/19 12:00 03/04/19 12:00 Intake & Output 03/03/19 03/04/19 03/05/19 06:59 06:59 06:59 Intake Total 3372 4480 100 Output Total 550 1150 Balance 2822 3330 100 Weight 104.3 kg 104.8 kg Exam: General: Awake and Alert. No acute distress. Resting comfortably in bed. Head: Normocephalic. Atraumatic. Eyes: Pupils equal, round, and reactive to light. EOMI. Sclera white. Ears: No drainage noted. Nose: Nares normal & without exudate. Oropharynx: Moist mucous membranes. Neck: Supple movements. Cardiovascular: Regular rate & rhythm. No murmurs, rubs, or gallops appreciated. Pulmonary: Lungs clear to auscultation bilaterally. No increased work of breathing. Gastrointestinal: Abdomen soft, non-tender, non-distended. Normoactive bowel sounds. Skin: Texture and turgor normal. Warm and dry. Psychiatric: Judgement and insight appear to be good. Patient is oriented to date, location, and situation. Affect appropriate. Extremities: Status post left below the knee amputation. Devyn wrap is clean, dry, and intact. Neurological: CN III-XII grossly intact, except right facial droop secondary to history of polio. Sensation to light touch is grossly intact. Tone is normal. Proprioception is normal. Speech is fluent with good content and without dysarthria. Muscle Strength: Full 5/5 strength in all major muscle groups of the right-sided and left upper extremities. He is able to demonstrate only 1/5 strength of left hip flexors and knee flexors/extensors secondary to pain. Results Laboratory Results: 03/03/19 08:30 03/03/19 08:30 Impressions: Foot X-Ray 02/27/19 15:36 IMPRESSION: Bony resorption along the lateral aspect great toe distal phalanx worrisome for early changes of osteomyelitis. 3 cm soft tissue ulcer along the medial left foot arch without underlying aggressive bony demineralization or periostitis at the 1st metatarsal. Assessment and Plan - Plan Summary Plan Summary: 73-year-old male with left below the knee amputation secondary to gangrene of the left foot. 1. Gait and ADL Dysfunction secondary to left below the knee amputation. - Continue PT and OT to maximize mobility, safety, endurance, and self-care. 2. Left below the knee amputation - Secondary to gangrene of the left foot - Performed by Dr. Miller on 02/28/2019 - Nonweightbearing on the left lower extremity Recommend continued PT & OT for pre-prosthetic training including: - ROM of joints proximal to amputation (avoid pillow behind knee to prevent knee flexion contracture) - Strengthening gluteus rickey & medius as well as hamstrings & quads - Mobility, transfers, and ADLs. - Consult Glove Turner for evaluation and teaching. Post-Prosthetic Training will include: - ROM of joints proximal to amputation - strengthen gluteus rickey & medius as well as hamstrings & quads - mobility, transfers, ADLS - gait with prosthesis on all surfaces - improving balance on all surfaces - ascending/descending stairs, curbs & ramps - prosthetic & skin care - proper donning & doffing of prosthesis Pain Management - For post-operative pain, use narcotics as tolerated. - For phantom pain, use Gabapentin, topical anesthetics, Beta Blockers, or a child welfare director. 3. Hypertension - The patient was not previously taking any antihypertensive medications - Consider initiating an antihypertensive agent if the patient's blood pressure remains persistently elevated 4. Acute blood loss anemia - Secondary to recent surgery - Continue to follow H&H closely and transfuse as necessary 5. Disposition - Based on the patient's diagnosis, medical co-morbidities, and current functional status, he is a good candidate for acute inpatient rehabilitation as he would benefit from 3 hours per day of intensive therapies in at least 2 disciplines under the close medical supervision of a physician. The patient is expected to make significant gains in a relatively short period of time to the point that he can safely be discharged home with supervision and assistance from family. The patient will discuss this recommendation with his and make a decision about which facility he would like to go to. This case was discussed with the patient's acute care therapists and nurse on the floor. Thank you for allowing us to participate in the care of this patient. Please call with any questions. A total of 65 minutes was spent on [id number] communication with the patient a nd coordination of care.
[2019-03-05] MEDS: MORPHINE SULFATE 10 MG/ML INJ IV PRN ×3 (02:06→21:36)
[2019-03-05] MEDS: PIPERACILLIN SODIUM/TAZOBACTAM 3.375 GM in NORMAL SALINE 100 ML IV SCH ×4 (02:07→21:36)
[2019-03-05] MEDS: GABAPENTIN 300 MG CAPSULE PO SCH ×3 (06:15→21:36)
[2019-03-05] MEDS: DEXTROSE 5%-LACTATED RINGERS 1,000 ML IV PRN ×2 (06:16→17:53)
[2019-03-05] MEDS: FAMOTIDINE 20 MG TABLET PO SCH ×2 (10:26→21:36)
--- NOTE | 2019-03-05 15:25 | PDOC CONSULTATION ---
Consultation-Blank Consultation: Physical Medicine & Rehabilitation Chart reviewed and case discussed with process planner. The patient agrees to acute inpatient rehabilitation at [facility] in [place] on 03/06/2019. [facility] will arrange for stretcher transportation with 10 AM pick upon 03/06/2019. Nursing should call [phone] to provide nursing report prior to the patient's discharge.
[2019-03-06 00:18] VITALS: BP 162/55
[2019-03-06] MEDS: PIPERACILLIN SODIUM/TAZOBACTAM 3.375 GM in NORMAL SALINE 100 ML IV SCH ×2 (05:49→09:28)
[2019-03-06] MEDS: GABAPENTIN 300 MG CAPSULE PO SCH (05:49)
[2019-03-06] MEDS: DEXTROSE 5%-LACTATED RINGERS 1,000 ML IV PRN (05:50)
[2019-03-06] MEDS: FAMOTIDINE 20 MG TABLET PO SCH (09:29)
--- NOTE | 2019-04-10 10:15 | DISCHARGE SUMMARY E ---
Discharge Summary NAME: JACQUES PETER : 1945 AGE: 73Y ADMITTED: 02/28/2019 DISCHARGED: 03/06/2019 DISCHARGE DIAGNOSIS: Left foot gangrene. PROCEDURE PERFORMED DURING HOSPITALIZATION: Left below-knee amputation performed by Dr. Fabricio Miller on 02/28/2019. HOSPITAL COURSE: The patient underwent the above-mentioned procedure. He did well postoperatively. Arrangements were made for patient to be taken care of at the acute inpatient rehab facility at [facility]. DICTATING PHYSICIAN: LAUREN FRAZIER M.D. [id number] PHY#: [id number] ID: [id number] JOB#: [id number] ACCT: [id number] cc:Asher DICKSON M.D. >
== END 2019-03-06 10:30 | disposition short-term general hospital (02) | DRG 240 ==
LOC: ER 14:28 → EH 02-28 00:03 → 4S 02-28 03:52
PROVIDERS: ADMIT Surgery; ATTEND Surgery
PROC: 0Y6J0Z3 Detachment at Left Lower Leg, Low, Open Approach (ICD-10-PCS; principal; 2019-02-28 13:00)
DX: I96 Gangrene, not elsewhere classified (principal); D62 Acute posthemorrhagic anemia; I10 Essential (primary) hypertension; F17.210 Nicotine dependence, cigarettes, uncomplicated; Z86.12 Personal history of poliomyelitis; Z79.82 Long term (current) use of aspirin
CPT/HCPCS: 01482; 36415; 80053; 83605; 85025; 86140; 87040; 88307; 88311; 93005; 93010; 96365; 96367; 99285; J0131; J0696; J1885; J2001; J2250; J2270; J2405; J2543; J2704; J3010; J3370; J7050; J7121

== ENCOUNTER 2020-05-09 01:15 | Inpatient (IN) | payer MEDICARE ==
[2020-05-09] MEDS ORDERED: DIAZEPAM INJ 10 MG/2 ML DISP.SYRIN IV ONE (02:01)
[2020-05-09] MEDS ORDERED: METHYLPREDNISOLONE INJ 125 MG/2 ML SDV IV ONE (02:21)
[2020-05-09] MEDS ORDERED: IPRATROPIUM/ALBUTEROL 0.5-2.5 MG/3 ML AMPUL NEB ONE (02:21)
[2020-05-09] MEDS: NORMAL SALINE 500 ML IV ONE ×2 (02:37→03:22)
[2020-05-09] MEDS ORDERED: LORAZEPAM INJ 2 MG/1 ML VIAL IV ONE ×2 (02:48→04:20)
[2020-05-09] MEDS ORDERED: FUROSEMIDE INJ/PF 20 MG/2 ML SDV IV ONE ×2 (02:54→04:43)
[2020-05-09] MEDS ORDERED: FUROSEMIDE INJ/PF 40 MG/4 ML SDV ONE (02:54)
--- NOTE | 2020-05-09 03:07 | RADIOLOGY REPORT (SQ) ---
EXAM DESCRIPTION: [facility]: XR CHEST 1 VIEW CLINICAL HISTORY: 74 years Male; tremors; COMPARISON: 05/18/2014 FINDINGS: Lungs: Lungs are clear, with no focal infiltrate, pneumothorax, or pleural effusion. Mediastinum: Heart appears somewhat enlarged, although this may be exaggerated by positioning. Superior mediastinum is normal. Bones: Bony structures are unremarkable. IMPRESSION: 1. No acute pulmonary findings.
[2020-05-09 03:29] LABS: ARTERIAL BLOOD BASE EXCESS -0.8 mmol/L; ARTERIAL BLOOD H2CO3 1.22 mmol/L (1.05-1.35); ARTERIAL BLOOD O2 SATURATION 99.5 % (94-98); ARTERIAL BLOOD PCO2 40.6 mmHg (35-45); ARTERIAL BLOOD PH 7.39 (7.35-7.45); ARTERIAL BLOOD PO2 241.2 mmHg (80-100); ARTERIAL BLOOD TOTAL CO2 25.3 mmol/L (23-27)
[2020-05-09 03:32] LABS: ARTERIAL BLOOD FIO2 65%
[2020-05-09 04:09] LABS: HEMATOCRIT 41.5 % (37.9-51.0); HEMOGLOBIN 13.8 g/dL (13.5-17.0); MEAN CORPUSCULAR HEMOGLOBIN 34.3 pg (27.0-33.4); MEAN CORPUSCULAR HGB CONC 33.3 g/dL (32.0-36.0); MEAN CORPUSCULAR VOLUME 103 fl (80-97); PLATELET COUNT 194 10^3/uL (150-450); RED BLOOD COUNT 4.02 10^6/uL (4.35-5.55); RED CELL DISTRIBUTION WIDTH 17.9 % (11.5-14.0); WHITE BLOOD COUNT 13.1 10^3/uL (4.0-10.5)
[2020-05-09 04:10] LABS: ALBUMIN 3.8 g/dL (3.5-5.0); ALKALINE PHOSPHATASE 83 U/L (38-126); ANION GAP 13 (5-19); ASPARTATE AMINO TRANSFERASE 17 U/L (17-59); BILIRUBIN,DIRECT 0.1 mg/dL (0.0-0.4); BILIRUBIN,TOTAL 0.7 mg/dL (0.2-1.3); BLOOD UREA NITROGEN 15 mg/dL (7-20); CALCIUM 9.6 mg/dL (8.4-10.2); CARBON DIOXIDE 22 mmol/L (22-30); CHLORIDE 103 mmol/L (98-107); GLUCOSE 125 mg/dL (75-110); POTASSIUM 4.7 mmol/L (3.6-5.0)
[2020-05-09 04:18] LABS: ABSOLUTE LYMPHOCYTES# (MANUAL) 0.8 10^3/uL (0.5-4.7); ABSOLUTE MONOCYTES # (MANUAL) 0.8 10^3/uL (0.1-1.4); BAND NEUTROPHILS % (MANUAL) 4 % (3-5); BASOPHILS % (MANUAL) 0 % (0-2); EOSINOPHILS % (MANUAL) 0 % (0-6); LYMPHOCYTES % (MANUAL) 6 % (13-45); MONOCYTES % (MANUAL) 6 % (3-13); POLYCHROMASIA 1+; SEGMENTED NEUTROPHILS % (MAN) 84 % (42-78); TOTAL CELLS COUNTED 100
[2020-05-09 04:19] LABS: ANISOCYTOSIS 1+; PLATELET COMMENT ADEQUATE
[2020-05-09 05:52] LABS: APPEARANCE,URINE SLIGHTLY-CLOUDY; BILIRUBIN,URINE NEGATIVE (NEGATIVE); COLOR,URINE AMBER; GLUCOSE, URINE NEGATIVE (NEGATIVE); KETONES,URINE NEGATIVE (NEGATIVE); LEUKOCYTE ESTERASE,URINE NEGATIVE (NEGATIVE); NITRITE,URINE NEGATIVE (NEGATIVE); PROTEIN,URINE 30 mg/dL (NEGATIVE); URINE SPECIFIC GRAVITY 1.014
[2020-05-09] MEDS ORDERED: GUAIFENESIN SYRP 200 MG/10 ML UDC PO PRN (06:29)
[2020-05-09] MEDS ORDERED: NICOTINE 21 MG/24 HR PATCH.TD24 TD PRN (06:29)
[2020-05-09] MEDS ORDERED: ACETAMINOPHEN 325 MG TABLET PO PRN (06:29)
[2020-05-09] MEDS ORDERED: MORPHINE SULFATE 10 MG/ML INJ IV PRN (06:29)
[2020-05-09] MEDS ORDERED: MELATONIN 5 MG TABLET PO PRN (06:29)
[2020-05-09] MEDS ORDERED: LORAZEPAM INJ 2 MG/1 ML VIAL IV PRN (06:29)
[2020-05-09] MEDS ORDERED: LEVALBUTEROL HCL NEB 0.63 MG/3 ML AMPUL NEB PRN (06:29)
[2020-05-09] MEDS ORDERED: MAG HYDROX/AL HYDROX/SIMETH SUSP 30 ML UDCUP PO PRN (06:29)
[2020-05-09] MEDS ORDERED: MAGNESIUM HYDROXIDE SUSP 30 ML UDCUP PO PRN (06:29)
--- NOTE | 2020-05-09 07:00 | ER Document Report ---
Entered by KEE EAGLE SCRIBE 05/09/20 0207 Acting as scribe for:CHATA CALIX IV, MD ED General - General Chief Complaint: Altered Mental Status Stated Complaint: ALTERED MENTAL STATUS Primary Care Provider: LISANDRO LILLY PA-C [Primary Care Provider] - Follow up as needed Mode of Arrival: Wheelchair Information source: Patient, Emergency Med Personnel Notes: This 74 year old male patient presents to the ED today with complaints of sudden onset tremors to bilateral upper extremities and torso that started around 0000 today. Patient reports nausea/vomiting, but denies fever, chest pain, or cough. Patient is noted to have right facial droop which he states is normal due to surgery related to his history of poliomyelitis. Denies history of CVA, Tebbetts son's disease, or ETOH abuse; he states that his last drink was x2 years ago. He admits that he is a current every day smoker. TRAVEL OUTSIDE OF THE [place] IN LAST 30 DAYS: No - Related Data Allergies/Adverse Reactions: No Known Allergies Allergy (Unverified 05/18/14 10:23) Past Medical History - General Information source: Patient - Social History Smoking Status: Current Every Day Smoker Cigarette use (# per day): Yes Chew tobacco use (# tins/day): No Smoking Education Provided: No Frequency of alcohol use: None Drug Abuse: None Lives with: Spouse/Significant other Family History: Reviewed & Not Pertinent Patient has suicidal ideation: No Patient has homicidal ideation: No Infectious Medical History: Reports: Other - Hx Poliomyelitis as a child Past Surgical History: Reports: Hx 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, Other - Facial surgery r/t polio - Immunizations Hx Diphtheria, Pertussis, Tetanus Vaccination: No Review of Systems - Review of Systems Constitutional: See HPI. denies: Fever EENT: No symptoms reported Cardiovascular: See HPI. denies: Chest pain Respiratory: See HPI. denies: Cough Gastrointestinal: See HPI, Nausea, Vomiting Genitourinary: No symptoms reported Male Genitourinary: No symptoms reported Musculoskeletal: No symptoms reported Skin: No symptoms reported Hematologic/Lymphatic: No symptoms reported Neurological/Psychological: See HPI, Tremor -: Yes All other systems reviewed and negative Physical Exam - Vital signs Vitals: Temp Pulse BP Pulse Ox 98.1 F 143 H 153/20 H 100 05/09/20 01:24 05/09/20 01:24 05/09/20 01:24 05/09/20 01:24 - General General appearance: Alert In distress: None - HEENT Head: Other - Well healed surgical scars noted to right side of face Eyes: Normal Pupils: PERRL - Respiratory Respiratory status: No respiratory distress Chest status: Nontender Breath sounds: Normal Chest palpation: Normal - Cardiovascular Rhythm: Regular, Tachycardia Heart sounds: Normal auscultation Murmur: No Friction rub: No Gallop: None auscultated - Abdominal Inspection: Normal Distension: No distension Bowel sounds: Normal Tenderness: Nontender - Abdomen soft Organomegaly: No organomegaly - Back Back: Normal, Nontender - Extremities General upper extremity: Normal inspection General lower extremity: Other - Left BKA with prosthesis - Neurological Neuro grossly intact: Yes Cranial nerves: Facial palsy - Right facial droop - Psychological Associated symptoms: Normal affect, Normal mood - Skin Skin Temperature: Warm Skin Moisture: Dry Skin Color: Normal Course - Re-evaluation Re-evalutation: 05/09/20 06:17 Patient is resting in bed. He is still on BiPAP. He does not appear to be in any apparent respiratory distress at this time. This MD discussed with patient's plan to admit patient and also discussed with patient plan to admit given his acute respiratory distress. - Vital Signs Vital signs: Temp Pulse Resp BP Pulse Ox 98.1 F 143 H 27 H 114/51 L 100 05/09/20 01:24 05/09/20 01:24 05/09/20 03:41 05/09/20 03:41 05/09/20 03:41 - Laboratory Result Diagrams: 05/09/20 01:59 05/09/20 01:59 Laboratory results interpreted by me: 05/09/20 05/09/20 05/09/20 01:59 01:59 01:59 WBC 13.1 H RBC 4.02 L MCV 103 H MCH 34.3 H RDW 17.9 H Seg Neuts % (Manual) 84 H Lymphocytes % (Manual) 6 L Abs Neuts (Manual) 11.5 H ABG pO2 ABG O2 Saturation Glucose 125 H NT-Pro-B Natriuret Pep 1230 H Total Protein 9.0 H Urine Protein Urine Urobilinogen 05/09/20 05/09/20 03:01 05:30 WBC RBC MCV MCH RDW Seg Neuts % (Manual) Lymphocytes % (Manual) Abs Neuts (Manual) ABG pO2 241.2 H ABG O2 Saturation 99.5 H Glucose NT-Pro-B Natriuret Pep Total Protein Urine Protein 30 H Urine Urobilinogen 2.0 H - Diagnostic Test Radiology reviewed: Reports reviewed - EKG Interpretation by Me Additional EKG results interpreted by me: 05/09/20 06:24 EKG obtained on 05/09/2020 at 0147 hrs. was interpreted by this MD. Findings: Sinus tachycardia, rate 116, normal axis, P waves preceding QRS complexes, left bundle branch is present, this left bundle branch was seen on a prior EKG from 02/29/2020. ST-T segments are nonspecific. Impression: Sinus tachycardia with left bundle branch block (pre-existing) and nonspecific ST segments. - Consults dr. serg garcia Time consulted: 06:20 - dr garcia agreed to admit patient Reason for consultation: 05/09/20 06:27 acute respiratory distress Discharge - Discharge Clinical Impression: Acute CHF Qualifiers: Heart failure type: unspecified Qualified Code(s): I50.9 - Heart failure, unspecified Condition: Stable Disposition: ADMITTED INPATIENT Admitting Provider: Kar (Hospitalist) Unit Admitted: IMCU Referrals: LISANDRO LILLY PA-C [Primary Care Provider] - Follow up as needed I personally performed the services described in the documentation, reviewed and edited the documentation which was dictated to the scribe in my presence, and it accurately records my words and actions.
[2020-05-09 07:36] LABS: CREATINE KINASE MB 1.83 ng/mL (<4.55)
[2020-05-09 07:40] LABS: TROPONIN I 0.143 ng/mL
[2020-05-09] MEDS ORDERED: HEPARIN SODIUM,PORCINE/D5W 25,000 UNIT/250 ML RTUINJ IV PRN (08:13)
[2020-05-09 08:51] LABS: PROTHROMBIN TIME 15.3 SEC (11.4-15.4)
[2020-05-09 08:52] LABS: PARTIAL THROMBOPLASTIN TIME 30.2 SEC (23.5-35.8)
[2020-05-09] MEDS ORDERED: ASPIRIN 81 MG TABLET, CHEWABLE PO ONE (09:00)
[2020-05-09] MEDS ORDERED: HEPARIN SOD (PORCINE) 1,000 UNIT/ML 10 ML VIAL IV ONE (09:00)
[2020-05-09] MEDS: FAMOTIDINE 20 MG TABLET PO SCH ×3 (10:09→22:00)
[2020-05-09] MEDS: DOCUSATE SODIUM 100 MG CAPSULE PO SCH ×2 (10:09→17:22)
[2020-05-09 10:33] LABS: APPEARANCE,URINE SLIGHTLY-CLOUDY; BILIRUBIN,URINE NEGATIVE (NEGATIVE); COLOR,URINE YELLOW; GLUCOSE, URINE NEGATIVE (NEGATIVE); KETONES,URINE NEGATIVE (NEGATIVE); LEUKOCYTE ESTERASE,URINE NEGATIVE (NEGATIVE); NITRITE,URINE NEGATIVE (NEGATIVE); PROTEIN,URINE NEGATIVE (NEGATIVE); UROBILINOGEN,URINE NEGATIVE mg/dL (<2.0)
[2020-05-09] MEDS ORDERED: HEPARIN SOD (PORCINE) 1,000 UNIT/ML 10 ML VIAL IV PRN (11:16)
[2020-05-09] MEDS: MORPHINE SULFATE 10 MG/ML INJ IV PRN (11:17)
[2020-05-09 12:09] LABS: HEMATOCRIT 39.1 % (37.9-51.0); MEAN CORPUSCULAR HEMOGLOBIN 33.9 pg (27.0-33.4); MEAN CORPUSCULAR HGB CONC 33.2 g/dL (32.0-36.0); MEAN CORPUSCULAR VOLUME 102 fl (80-97); PLATELET COUNT 166 10^3/uL (150-450); RED BLOOD COUNT 3.84 10^6/uL (4.35-5.55); RED CELL DISTRIBUTION WIDTH 17.2 % (11.5-14.0)
[2020-05-09] MEDS ORDERED: HALOPERIDOL LACTATE INJ 5 MG/1 ML VIAL ONE (12:19)
[2020-05-09 12:32] LABS: ABSOLUTE LYMPHOCYTES# (MANUAL) 0.8 10^3/uL (0.5-4.7); ABSOLUTE MONOCYTES # (MANUAL) 2.9 10^3/uL (0.1-1.4); BASOPHILS % (MANUAL) 0 % (0-2); EOSINOPHILS % (MANUAL) 0 % (0-6); LYMPHOCYTES % (MANUAL) 2 % (13-45); MONOCYTES % (MANUAL) 7 % (3-13); SEGMENTED NEUTROPHILS % (MAN) 91 % (42-78); TOTAL CELLS COUNTED 100
[2020-05-09 12:34] LABS: ANISOCYTOSIS 1+
[2020-05-09 12:35] LABS: PLATELET COMMENT ADEQUATE; PLATELET LARGE PRESENT; TOXIC GRANULATION SLIGHT; TOXIC VACUOLATION PRESENT
[2020-05-09 12:37] LABS: WHITE BLOOD COUNT 41.3 10^3/uL (4.0-10.5)
[2020-05-09 12:38] LABS: CREATINE KINASE MB 13.3 ng/mL (<4.55)
[2020-05-09 12:39] LABS: TROPONIN I 0.118 ng/mL
[2020-05-09] MEDS: LORAZEPAM INJ 2 MG/1 ML VIAL IV PRN ×3 (12:51→20:00)
[2020-05-09] MEDS ORDERED: HALOPERIDOL LACTATE INJ 5 MG/1 ML VIAL IV ONE (13:00)
[2020-05-09] MEDS ORDERED: VANCOMYCIN HCL 0 MG in DEXTROSE 5%-WATER 250 ML IV NR (13:45)
[2020-05-09] MEDS ORDERED: HEPARIN SOD (PORCINE) 5,000 UNIT/ML 1 ML VIAL SUBCUT SCH (14:00)
--- NOTE | 2020-05-09 14:06 | PDOC H&P ---
History of Present Illness Admission Date/PCP: 05/09/20 06:45 LISANDRO LILLY PA-C Patient complains of: Patient presented to emergency department for tremulousness involving upper extremities and torso. History of Present Illness: JACQUES PETER is a 74 year old male with a history of hypertension, polio and left leg amputation. The patient is unable to provide any history. I did speak to his however. 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 He had multiple surgeries at the age of 7 for his polio but she does not have all of the details. Past Medical History Cardiac Medical History: Denies: Coronary Artery Disease, Hypertension Pulmonary Medical History: Reports: None EENT Medical History: Reports: None Neurological Medical History: Reports: Other - Likely phantom pain as the patient is on gabapentin Denies: Ischemic CVA Endocrine Medical History: Denies: Diabetes Mellitus Type 1, Diabetes Mellitus Type 2 Renal/ Medical History: Denies: Chronic Kidney Disease Malignancy Medical History: Reports: None GI Medical History: Denies: Hepatitis Musculoskeltal Medical History: Reports: None Skin Medical History: Reports: None Psychiatric Medical History: Reports: Alcohol Dependency, Tobacco Dependency Denies: Depression Traumatic Medical History: Reports: None Infectious Medical History: Reports: None Past Surgical History Past Surgical History: Reports: 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, Other - Facial surgery r/t polio Social History Information Source: Relative - Patient's , [facility] Records Lives with: Spouse/Significant other Smoking Status: Current Every Day Smoker Cigarettes Packs Per Day: 2 Electronic Cigarette use?: No Frequency of Alcohol Use: None - Alcoholic who has not had any alcohol for approximately 2 years Hx Recreational Drug Use: No Drugs: None Hx Prescription Drug Abuse: No - Advance Directive Resuscitation Status: Full Code Surrogate healthcare decision maker:: Per discussion with patient's Family History Family History: None - That the patient's is aware of Parental Family History Reviewed: Yes Children Family History Reviewed: NA Sibling(s) Family History Reviewed.: Yes Medication/Allergy Home Medications: Aspirin [Ecotrin 81 mg EC Tablet] 81 mg PO DAILY 02/28/19 Gabapentin [Neurontin 400 mg Capsule] 400 mg PO TID 05/09/20 Allergies/Adverse Reactions: No Known Allergies Allergy (Unverified 05/18/14 10:23) Review of Systems ROS unobtainable: Due to mental status Physical Exam Vital Signs: Temp Pulse Resp BP Pulse Ox 98.4 F 82 18 127/55 H 97 05/09/20 09:16 05/09/20 10:25 05/09/20 11:01 05/09/20 09:16 05/09/20 11:01 Intake & Output 05/08/20 05/09/20 05/10/20 06:59 06:59 06:59 Output Total 150 Balance -150 Weight 106.594 kg General appearance: ABSENT: cooperative Head exam: PRESENT: atraumatic, normocephalic Eye exam: PRESENT: other - Unable to assess Ear exam: PRESENT: normal external ear exam. ABSENT: bleeding, drainage Mouth exam: PRESENT: other - Patient very agitated. Unable to assess Neck exam: PRESENT: other - Unable to assess Respiratory exam: PRESENT: clear to auscultation shilpa - Anteriorly, unlabored. ABSENT: rales, rhonchi Cardiovascular exam: PRESENT: RRR, +S1, +S2 GI/Abdominal exam: PRESENT: normal bowel sounds, soft Rectal exam: PRESENT: deferred Extremities exam: PRESENT: other - Left below-knee amputation with prosthesis Neurological exam: PRESENT: awake Psychiatric exam: PRESENT: agitated - Extremely agitated. Requiring four-point restraints. Focused psych exam: PRESENT: other - Nonverbal therefore unable to assess Skin exam: PRESENT: other - Spider angiomata on cheeks Results Laboratory Results: 05/09/20 11:55 05/09/20 01:59 05/09/20 05/09/20 05/09/20 01:59 01:59 01:59 WBC 13.1 H RBC 4.02 L Hgb 13.8 Hct 41.5 MCV 103 H MCH 34.3 H MCHC 33.3 RDW 17.9 H Plt Count 194 Seg Neutrophils % Not Reportable Carbonic Acid HCO3/H2CO3 Ratio ABG pH ABG pCO2 ABG pO2 ABG HCO3 ABG O2 Saturation ABG Base Excess FiO2 Sodium 137.8 Potassium 4.7 Chloride 103 Carbon Dioxide 22 Anion Gap 13 BUN 15 Creatinine 0.97 Est GFR ( Amer) > 60 Glucose 125 H Calcium 9.6 Total Bilirubin 0.7 AST 17 Alkaline Phosphatase 83 Total Protein 9.0 H Albumin 3.8 Free T3 pg/mL 3.13 Urine Color Urine Appearance Urine pH Ur Specific Celestine Urine Protein Urine Glucose (UA) Urine Ketones Urine Blood Urine Nitrite Ur Leukocyte Esterase Urine WBC (Auto) Urine RBC (Auto) 05/09/20 05/09/20 05/09/20 03:01 05:30 10:08 WBC RBC Hgb Hct MCV MCH MCHC RDW Plt Count Seg Neutrophils % Carbonic Acid 1.22 HCO3/H2CO3 Ratio 19:1 ABG pH 7.39 ABG pCO2 40.6 ABG pO2 241.2 H ABG HCO3 24.0 ABG O2 Saturation 99.5 H ABG Base Excess -0.8 FiO2 65% Sodium Potassium Chloride Carbon Dioxide Anion Gap BUN Creatinine Est GFR ( Amer) Glucose Calcium Total Bilirubin AST Alkaline Phosphatase Total Protein Albumin Free T3 pg/mL Urine Color NILDA YELLOW Urine Appearance SLIGHTLY-CLOUDY SLIGHTLY-CLOUDY Urine pH 5.0 5.0 Ur Specific Celestine 1.014 1.010 Urine Protein 30 H NEGATIVE Urine Glucose (UA) NEGATIVE NEGATIVE Urine Ketones NEGATIVE NEGATIVE Urine Blood NEGATIVE SMALL H Urine Nitrite NEGATIVE NEGATIVE Ur Leukocyte Esterase NEGATIVE NEGATIVE Urine WBC (Auto) 2 2 Urine RBC (Auto) 2 1 05/09/20 05/09/20 10:43 11:55 WBC Cancelled 41.3 H* D RBC Cancelled 3.84 L Hgb Cancelled 13.0 L Hct Cancelled 39.1 MCV Cancelled 102 H MCH Cancelled 33.9 H MCHC Cancelled 33.2 RDW Cancelled 17.2 H Plt Count Cancelled 166 Seg Neutrophils % Cancelled Not Reportable Carbonic Acid HCO3/H2CO3 Ratio ABG pH ABG pCO2 ABG pO2 ABG HCO3 ABG O2 Saturation ABG Base Excess FiO2 Sodium Potassium Chloride Carbon Dioxide Anion Gap BUN Creatinine Est GFR ( Amer) Glucose Calcium Total Bilirubin AST Alkaline Phosphatase Total Protein Albumin Free T3 pg/mL Urine Color Urine Appearance Urine pH Ur Specific Celestine Urine Protein Urine Glucose (UA) Urine Ketones Urine Blood Urine Nitrite Ur Leukocyte Esterase Urine WBC (Auto) Urine RBC (Auto) 05/09/20 05/09/20 05/09/20 01:59 01:59 06:40 Creatine Kinase 145 CK-MB (CK-2) Troponin I 0.018 NT-Pro-B Natriuret Pep 1230 H 05/09/20 05/09/20 05/09/20 06:40 10:43 10:43 Creatine Kinase Cancelled CK-MB (CK-2) 1.83 Cancelled Troponin I 0.143 Cancelled NT-Pro-B Natriuret Pep 05/09/20 05/09/20 11:55 11:55 Creatine Kinase 2798 H CK-MB (CK-2) 13.30 H Troponin I 0.118 NT-Pro-B Natriuret Pep Impressions: Chest X-Ray 05/09/20 02:02 IMPRESSION: 1. No acute pulmonary findings. Assessment and Plan - Diagnosis (1) Leukocytosis Qualifiers: Leukocytosis type: unspecified Qualified Code(s): D72.829 - Elevated white blood cell count, unspecified Is this a current diagnosis for this admission?: Yes Plan: 05/09/2020 The patient's white count was 13,000 on admission and is now 40,000. After discussion with the she describes what were most likely rigors. There is an infection somewhere. No cultures were drawn in the emergency department. Chest x-ray is not remarkable for any large infiltrate. I have ordered stat blood cultures and urine culture. I have ordered broad-spectrum antibiotic therapy. We will continue to look for a source of infection. (2) Encephalopathy acute Is this a current diagnosis for this admission?: Yes Plan: 05/09/2020 Etiology unknown but most likely infection. The patient's states that he has a history of alcoholism but has not had a drink for 2 years. This is when he had the left below-knee amputation. (3) Agitation Is this a current diagnosis for this admission?: Yes Plan: 05/09/2020 Unknown etiology. According to the it is not alcohol withdrawal. To the best of our knowledge she is not on pain medications. It could be due to infection. I will utilize scheduled and as needed sedation. (4) Elevated troponin Is this a current diagnosis for this admission?: Yes Plan: 05/09/2020 Initial elevation of troponin but this does started coming down. Stat echocardiogram was ordered. Dr. Singh will interpret the echocardiogram and see the patient but I do not believe this is cardiac. (5) Tobacco dependence due to cigarettes Is this a current diagnosis for this admission?: Yes Plan: 05/09/2020 Nicotine patch (6) History of alcoholism Is this a current diagnosis for this admission?: Yes Plan: 05/09/2020 Based on my discussion with patient's there is no evidence of alcohol related encephalopathy. Will monitor closely and investigate further when the patient is able to communicate. - Time Time Spent with patient: 35 or more minutes Medications reviewed and adjusted accordingly: Yes - Inpatient Certification Based on my medical assessment, after consideration of the patient's comorbidities, presenting symptoms, or acuity I expect that the services needed warrant INPATIENT care.: Yes I certify that my determination is in accordance with my understanding of Medicare's requirements for reasonable and necessary INPATIENT services [42 CFR 412.3e].: Yes Medical Necessity: Need For IV Fluids, Need for IV Antibiotics, Risk of Complication if Not Cared For in Hospital Post Hospital Care: D/C Manager Mail Documentation
[2020-05-09] MEDS: GABAPENTIN 400 MG CAPSULE PO SCH ×3 (14:31→22:00)
[2020-05-09] MEDS: CEFEPIME 1 GM/D5W RTU 1 GM/50 ML RTUPB IV SCH ×2 (14:31→23:08)
[2020-05-09] MEDS: DIAZEPAM INJ 10 MG/2 ML DISP.SYRIN IV SCH ×2 (14:31→21:48)
[2020-05-09 15:30] LABS: CREATINE KINASE MB 20.2 ng/mL (<4.55)
[2020-05-09 15:39] LABS: TROPONIN I 0.108 ng/mL
[2020-05-09] MEDS ORDERED: VANCOMYCIN HCL 1,500 MG in DEXTROSE 5%-WATER 250 ML IV ONE (16:00)
--- NOTE | 2020-05-09 16:07 | XCELERA REPORT ---
[address] [address] Transthoracic Echocardiogram Report Name: JACQUES PETER Age: 74 yrs Gender: Male : 1945 Patient Status: Inpatient Patient Location: [facility]^A Study Date: 05/09/2020 09:32 AM Height: 74 in Weight: 235 lb BSA: 2.3 m2 Procedure: A two-dimensional transthoracic echocardiogram with color flow and Doppler was performed. Study Quality: Fair. Reason For Study: GA / CARDIOMEGALY History: GA / CARDIOMEGALY. Ordering Physician: SURESH ANDERSON Performed By: Jose Laws Interpretation Summary The left ventricle is normal in size. There is mild to moderate concentric left ventricular hypertrophy. LV EF is 45% to 50% Left ventricular systolic function is mild to moderately reduced. Doppler measurements suggest impaired left ventricular relaxation, which is associated with grade I/IV or mild diastolic dysfunction There is mild to moderate global hypokinesis of the left ventricle. There is no thrombus. No ASD,VSD or PFO seen. The right ventricle is normal in size and function. The right atrium is normal. The left atrium is mildly dilated. There is no evidence of mitral valve prolapse. There is no vegetation seen on the mitral valve. There is no mitral valve stenosis. There is a trace amount of mitral regurgitation There is no aortic valvular vegetation. There is no aortic valve stenosis There is no LVOT obstruction. There is a trace amount of aortic regurgitation There is no tricuspid stenosis. There is a trace amount of tricuspid regurgitation Tricuspid regurgitation jet envelope not well defined to measure RV systolic pressure accurately. There is no pulmonic valvular stenosis. There is no pulmonic valvular regurgitation. The aortic root is normal size. The inferior vena cava appeared normal and decreased > 50% with respiration (RAP 5-10 mmHg) There is no pericardial effusion. MMode/2D Measurements & Calculations RVDd: 2.9 cm LVIDd: 6.5 cm FS: 25.2 % Ao root diam: 3.6 cm IVSd: 1.4 cm LVIDs: 4.9 cm EDV(Teich): 216.8 ml Ao root area: 10.3 cm2 LVPWd: 1.3 cm ESV(Teich): 111.4 ml LA dimension: 4.6 cm EF(Teich): 48.6 % Doppler Measurements & Calculations MV E max donna: MV P1/2t max donna: Ao V2 max: AI max donna: 67.5 cm/sec 70.2 cm/sec 156.9 cm/sec 341.0 cm/sec MV A max donna: MV P1/2t: 94.3 msec Ao max P.8 mmHgAI max P.2 cm/sec MVA(P1/2t): 2.3 cm2 46.5 mmHg MV E/A: 0.84 MV dec slope: AI dec slope: 185.6 cm/sec2 218.2 cm/sec2 AI P1/2t: MV dec time: 538.1 msec 0.22 sec LV V1 max PG: PA V2 max: AV P1/2t-pr_phl: MV P1/2t-pr_phl: 5.2 mmHg 118.4 cm/sec 538.1 msec 94.3 msec LV V1 max: PA max P.6 mmHg 114.1 cm/sec Left Ventricle The left ventricle is normal in size. There is mild to moderate concentric left ventricular hypertrophy. LV EF is 45% to 50%. Left ventricular systolic function is mild to moderately reduced. Doppler measurements suggest impaired left ventricular relaxation, which is associated with grade I/IV or mild diastolic dysfunction. There is mild to moderate global hypokinesis of the left ventricle. There is no thrombus. No ASD,VSD or PFO seen. Right Ventricle The right ventricle is normal in size and function. Atria The right atrium is normal. The left atrium is mildly dilated. Mitral Valve There is no evidence of mitral valve prolapse. There is no vegetation seen on the mitral valve. There is no mitral valve stenosis. There is a trace amount of mitral regurgitation. Aortic Valve There is no aortic valvular vegetation. There is no aortic valve stenosis. There is no LVOT obstruction. There is a trace amount of aortic regurgitation. Tricuspid Valve There is no tricuspid stenosis. There is a trace amount of tricuspid regurgitation. Tricuspid regurgitation jet envelope not well defined to measure RV systolic pressure accurately. Pulmonic Valve There is no pulmonic valvular stenosis. There is no pulmonic valvular regurgitation. Great Vessels The aortic root is normal size. The inferior vena cava appeared normal and decreased > 50% with respiration (RAP 5-10 mmHg). Effusions There is no pericardial effusion. : SURESH ANDERSON, Vaishali
--- NOTE | 2020-05-09 16:08 | PDOC CONSULTATION ---
Consultation-Blank Consultation: CARDIOLOGY CONSULTATION by Dr. Vaishali Singh on 05/09/2020. Patient seen 11 AM. 60 minutes spent with patient with more than 50% time spent in direct patient care. REASON FOR CONSULTATION: Patient with elevated troponin I and cardiomyopathy. CONSULT REQUESTING PHYSICIAN: Dr. Mel[facility]. HISTORY of PRESENT ILLNESS: Patient today present is sedated and has four-point restraints. Unable to get history from patient. Chart reviewed. The patient admitted to the emergency room with complaints of tremulousness and developed respiratory distress and is on BiPAP. He also became very agitated. He is also noted to be a borderline elevated troponin I which is now trending down. His EKG shows sinus tachycardia with left bundle branch block pattern. No other history is available. Except the patient has history of COPD continues to smoke, and has a history of alcohol abuse. But as per the sister the patient quit drinking 2 years ago. It is not known whether he has had some neurological deficits due to prolonged alcohol usage. Note that the patient's rapid COVID testing came back negative. 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 Past Medical History Cardiac Medical History: Denies: Coronary Artery Disease, Hypertension Pulmonary Medical History: Reports: None EENT Medical History: Reports: None Neurological Medical History: Reports: Other - Likely phantom pain as the patient is on gabapentin Denies: Ischemic CVA Endocrine Medical History: Denies: Diabetes Mellitus Type 1, Diabetes Mellitus Type 2 Renal/ Medical History: Denies: Chronic Kidney Disease Malignancy Medical History: Reports: None GI Medical History: Denies: Hepatitis Musculoskeltal Medical History: Reports: None Skin Medical History: Reports: None Psychiatric Medical History: Reports: Alcohol Dependency, Tobacco Dependency Denies: Depression Traumatic Medical History: Reports: None Infectious Medical History: Reports: None Past Surgical History Past Surgical History: Reports: 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, Other - Facial surgery r/t polio Social History Information Source: Relative - Patient's , [facility] Records Lives with: Spouse/Significant other Smoking Status: Current Every Day Smoker Cigarettes Packs Per Day: 2 Electronic Cigarette use?: No Frequency of Alcohol Use: None - Alcoholic who has not had any alcohol for approximately 2 years Hx Recreational Drug Use: No Drugs: None Hx Prescription Drug Abuse: No - Advance Directive Resuscitation Status: Full Code Surrogate healthcare decision maker:: Per discussion with patient's Family History Family History: None - That the patient's is aware of Parental Family History Reviewed: Yes Children Family History Reviewed: NA Sibling(s) Family History Reviewed.: Yes Medication/Allergy Home Medications: Aspirin [Ecotrin 81 mg EC Tablet] 81 mg PO DAILY 02/28/19 Gabapentin [Neurontin 400 mg Capsule] 400 mg PO TID 05/09/20 Allergies/Adverse Reactions: No Known Allergies Allergy (Unverified 05/18/14 10:23) Current Medications Generic Name Dose Route Start Last Admin Trade Name Freq PRN Reason Stop Dose Admin Acetaminophen 650 mg 05/09/20 06:29 Tylenol 325 Mg Tablet PO 06/08/20 06:28 Q4HP PRN For headache, pain or fever Al Hydrox/Mg Hydrox/Simethicone 30 ml 05/09/20 06:29 Maalox Plus Susp 30 Udcup PO 06/08/20 06:28 Q6HP PRN HEARTBURN Aspirin 325 mg 05/10/20 10:00 Aspirin 325 Mg Tablet PO 06/09/20 09:59 DAILY EVAN Diazepam 5 mg 05/09/20 14:00 05/09/20 14:31 Valium Inj 10 Mg/2 Ml Disp.Syrin IV 05/16/20 13:59 5 mg Q8 EVAN Administration Docusate Sodium 100 mg 05/09/20 10:00 05/09/20 10:09 Colace 100 Mg Capsule PO 06/08/20 09:59 Not Given BID EVAN Enoxaparin Sodium 40 mg 05/10/20 10:00 Lovenox Inj 40 Mg/0.4 Ml Disp.Syrin SUBCUT 06/09/20 09:59 DAILY EVAN Famotidine 20 mg 05/09/20 10:00 05/09/20 10:09 Pepcid 20 Mg Tablet PO 06/08/20 09:59 Not Given Q12 EVAN Gabapentin 400 mg 05/09/20 14:30 05/09/20 14:31 Neurontin 400 Mg Capsule PO 06/08/20 14:29 400 mg Q8 EVAN Administration Guaifenesin 200 mg 05/09/20 06:29 Robitussin Syrup 200 Mg/10 Ml Ud Cup PO 06/08/20 06:28 Q4HP PRN COUGH Haloperidol Lactate 5 mg 05/09/20 12:22 Haldol 5 Mg/Ml Inj 1 Ml Vial IV 06/08/20 12:21 Q6HP PRN RESTLESSNESS/AGITATION Cefepime HCl 1 gm in 50 mls @ 100 mls/hr 05/09/20 14:30 05/09/20 15:44 Maxipime Rtu 1 Gm/D5w 50 Ml Premix Bag IV 05/16/20 14:29 Infused Q12 EVAN Infusion Vancomycin HCl 1,500 mg/ 250 mls @ 166.667 mls/hr 05/09/20 16:00 05/09/20 15:50 Dextrose IV 05/09/20 17:29 166.67 ml/hr NOW ONE 166.67 mls/hr Administration Vancomycin HCl 1,250 mg/ 250 mls @ 166.667 mls/hr 05/10/20 06:00 Dextrose IV 05/17/20 05:59 Q12A EVAN Levalbuterol HCl 0.63 mg 05/09/20 06:29 Xopenex Neb 0.63 Mg/3 Ml Ampul NEB 06/08/20 06:28 RTQ2HP PRN SHORTNESS OF BREATH Lorazepam 2 mg 05/09/20 12:19 05/09/20 12:51 Ativan Inj 2 Mg/1 Ml Vial IV 05/16/20 12:17 2 mg Q2HP PRN Administration ANXIETY/AGITATION Magnesium Hydroxide 30 ml 05/09/20 06:29 Milk Of Magnesia 30 Ml Udcup PO 06/08/20 06:28 HSP PRN FOR CONSTIPATION Melatonin 5 mg 05/09/20 06:29 Melatonin 5 Mg Tablet PO 06/08/20 06:28 HSP PRN SLEEP OR INSOMNIA Morphine Sulfate 2 mg 05/09/20 06:29 05/09/20 11:17 Morphine 10 Mg/Ml Inj IV 05/16/20 06:28 2 mg Q1HP PRN Administration Acute Severe Dyspnea Morphine Sulfate 2 - 4 mg 05/09/20 06:29 Morphine 10 Mg/Ml Inj IV 05/16/20 06:28 Q2HP PRN See protocol Protocol Nicotine 1 each 05/09/20 06:29 Nicoderm 21 Mg/24 Hr Transderm Patch TD 06/08/20 06:28 DAILYP PRN WITHDRAWAL SYMPTOMS Sodium Chloride 2.5 ml 05/09/20 14:00 05/09/20 13:47 Saline Flush 2.5 Ml Monoject Prefil Syrin IV 06/08/20 13:59 Not Given Q8 EVAN Discontinued Medications Generic Name Dose Route Start Last Admin Trade Name Sandra PRLizbet Reason Stop Dose Admin Albuterol/Ipratropium 6 ml 05/09/20 02:21 05/09/20 02:29 Duoneb 3 Ml Ampul NEB 05/09/20 02:22 6 ml NOW ONE Administration Aspirin 324 mg 05/09/20 09:00 05/09/20 10:10 Aspirin 81 Mg Chewable Tablet PO 05/09/20 09:01 Not Given NOW ONE Diazepam 5 mg 05/09/20 02:01 05/09/20 03:29 Valium Inj 10 Mg/2 Ml Disp.Syrin IV 05/09/20 02:02 Not Given NOW ONE Furosemide Confirm 05/09/20 02:54 05/09/20 03:25 Lasix Inj/Pf 40 Mg/4 Ml Sdv Administered 05/09/20 02:55 Not Given Dose 40 mg .ROUTE .STK-MED ONE Furosemide 20 mg 05/09/20 02:54 05/09/20 02:56 Lasix Inj/Pf 20 Mg/2 Ml Sdv IV 05/09/20 02:55 20 mg NOW ONE Administration Furosemide 20 mg 05/09/20 04:43 05/09/20 04:49 Lasix Inj/Pf 20 Mg/2 Ml Sdv IV 05/09/20 04:44 20 mg NOW ONE Administration Haloperidol Lactate 5 mg 05/09/20 13:00 05/09/20 12:20 Haldol 5 Mg/Ml Inj 1 Ml Vial IV 05/09/20 13:01 5 mg NOW ONE Administration Haloperidol Lactate Confirm 05/09/20 12:19 05/09/20 12:51 Haldol 5 Mg/Ml Inj 1 Ml Vial Administered 05/09/20 12:20 Not Given Dose 5 mg .ROUTE .STK-MED ONE Heparin Sodium (Porcine) 5,000 unit 05/09/20 14:00 Heparin Inj 5,000 Units/Ml 1 Ml Vial SUBCUT 06/08/20 13:59 Q8 [facility] Heparin Sodium (Porcine) 4,000 unit 05/09/20 09:00 05/09/20 10:20 Heparin Inj 1,000 Unit/Ml 10 Ml Vial IV 06/28/20 09:01 400 units NOW ONE Administration Heparin Sodium (Porcine) 0 - 12,000 unit 05/09/20 11:16 Heparin Inj 1,000 Unit/Ml 10 Ml Vial IV 06/08/20 11:15 .BOLUS PER PROTOCOL PRN RESPOND TO aPTT VALUE Protocol Sodium Chloride 500 mls @ 0 mls/hr 05/09/20 02:01 05/09/20 03:22 Nacl 0.9% 500 Ml Iv Soln IV 05/09/20 02:02 Not Given NOW ONE Wide Open Heparin Sodium/Dextrose 25,000 unit in 250 mls @ 0 mls/hr 05/09/20 08:13 05/09/20 14:32 Heparin Rtu 25,000 Unit/250 Ml D5w Premix IV 06/08/20 08:12 Infused CONTINUOUS PRN Titration THIS MED IS NOT "PRN" Protocol Titrate Lorazepam 1 mg 05/09/20 02:48 05/09/20 02:51 Ativan Inj 2 Mg/1 Ml Vial IV 05/09/20 02:49 1 mg NOW ONE Administration Lorazepam 1 mg 05/09/20 04:20 05/09/20 04:45 Ativan Inj 2 Mg/1 Ml Vial IV 05/09/20 04:21 1 mg NOW ONE Administration Lorazepam 1 mg 05/09/20 06:29 05/09/20 09:14 Ativan Inj 2 Mg/1 Ml Vial IV 05/16/20 06:28 1 mg Q4HP PRN Administration ANXIETY/AGITATION Methylprednisolone Sodium Succinate 125 mg 05/09/20 02:21 05/09/20 02:29 Solu-Medrol Inj/Pf 125 Mg/2 Ml Sdv IV 05/09/20 02:22 125 mg NOW ONE Administration Review of Systems ROS unobtainable: Due to mental status PHYSICAL EXAMINATION: The patient is mildly obese. He is sedated and is on a BiPAP. Selected Entries 05/09/20 05/09/20 05/09/20 09:16 10:00 11:01 Temperature 98.4 F Temperature Axillary Source Pulse Rate 81 Respiratory 15 18 Rate Blood Pressure 127/55 H BP Location Right Arm BP Position Supine O2 Sat by Pulse 98 97 Oximetry Fraction of 35 Inspired Oxygen (FIO2) Oxygen Delivery Bipap Method Pain Level 0 05/09/20 14:00 Temperature Temperature Source Pulse Rate 81 Respiratory Rate Blood Pressure BP Location BP Position O2 Sat by Pulse Oximetry Fraction of Inspired Oxygen (FIO2) Oxygen Delivery Method Pain Level HEAD: Is atraumatic normocephalic. EYES: Pupils are equal round regular reactive to light. ENT is negative. Neck is supple. There is no JVD. Carotids are equal there is no bruit there is no lymphadenopathy there is no goiter. LUNGS: Trachea central. There is diminished air entry prolonged expiration. There are scattered rhonchi throughout. There is no wheezing or rales of CHF. There is some dry crackles in the right base. HEART: S1-S2 is heard. There is no S3 gallop. There is no S4 gallop. There is systolic murmur left sternal border and the apex there is no rub. ABDOMEN: Is obese. Nontender there is no paraspinal megaly. Bowel sounds are well heard. EXTREMITIES: Right femorals are deep. There is no femoral bruits on the right leg, and right femorals are diminished right leg pulses diminished. There is no pedal edema in the right leg. 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 There is no DVT cellulitis. There is no calf tenderness. ANUS and psychiatric not examined due to the patient's altered mental status the patient being very drowsy and at present also has been sedated. Right facial droop was noticed. He does move all 3 extremities note left lower extremity is a prosthesis. EKG: Shows sinus tachycardia with left bundle branch block pattern. Labs- Entire Visit 05/09/20 05/09/20 05/09/20 01:24 01:59 01:59 WBC RBC Hgb Hct MCV MCH MCHC RDW Plt Count Lymph % (Auto) [place] % (Auto) Eos % (Auto) Baso % (Auto) Absolute Neuts (auto) Absolute Lymphs (auto) Absolute Monos (auto) Absolute Eos (auto) Absolute Basos (auto) Total Counted Seg Neutrophils % Seg Neuts % (Manual) Band Neutrophils % Lymphocytes % (Manual) Monocytes % (Manual) Eosinophils % (Manual) Basophils % (Manual) Abs Neuts (Manual) Abs Lymphs (Manual) Abs Monocytes (Manual) Absolute Eos (Manual) Abs Basophils (Manual) Toxic Granulation Toxic Vacuolation Platelet Estimate Large Platelets Platelet Comment Polychromasia Anisocytosis Macrocytosis PT INR APTT Carbonic Acid HCO3/H2CO3 Ratio ABG pH ABG pCO2 ABG pO2 ABG HCO3 ABG Total CO2 ABG O2 Saturation ABG Base Excess FiO2 Sodium Potassium Chloride Carbon Dioxide Anion Gap BUN Creatinine Est GFR ( Amer) Est GFR (MDRD) Non-Af Glucose POC Glucose 97 Calcium Total Bilirubin Direct Bilirubin Neonat Total Bilirubin Neonat Direct Bilirubin Neonat Indirect Bili AST ALT Alkaline Phosphatase Creatine Kinase CK-MB (CK-2) Troponin I 0.018 NT-Pro-B Natriuret Pep Total Protein Albumin Free T3 pg/mL Urine Color Urine Appearance Urine pH Ur Specific [place] Urine Protein Urine Glucose (UA) Urine Ketones Urine Blood Urine Nitrite Urine Bilirubin Urine Urobilinogen Ur Leukocyte Esterase Urine WBC (Auto) Urine RBC (Auto) U Hyaline Cast (Auto) Urine Bacteria (Auto) Squamous Epi Cells Auto Urine Mucus (Auto) Urine Ascorbic Acid Serum Alcohol < 10 SARS-CoV-2 (PCR) Slides for Path Review 05/09/20 05/09/20 05/09/20 01:59 01:59 01:59 WBC 13.1 H RBC 4.02 L Hgb 13.8 Hct 41.5 MCV 103 H MCH 34.3 H MCHC 33.3 RDW 17.9 H Plt Count 194 Lymph % (Auto) Not Reportable [place] % (Auto) Not Reportable Eos % (Auto) Not Reportable Baso % (Auto) Not Reportable Absolute Neuts (auto) Not Reportable Absolute Lymphs (auto) Not Reportable Absolute Monos (auto) Not Reportable Absolute Eos (auto) Not Reportable Absolute Basos (auto) Not Reportable Total Counted 100 Seg Neutrophils % Not Reportable Seg Neuts % (Manual) 84 H Band Neutrophils % 4 Lymphocytes % (Manual) 6 L Monocytes % (Manual) 6 Eosinophils % (Manual) 0 Basophils % (Manual) 0 Abs Neuts (Manual) 11.5 H Abs Lymphs (Manual) 0.8 Abs Monocytes (Manual) 0.8 Absolute Eos (Manual) 0.0 Abs Basophils (Manual) 0.0 Toxic Granulation Toxic Vacuolation Platelet Estimate Large Platelets Platelet Comment ADEQUATE Polychromasia 1+ Anisocytosis 1+ Macrocytosis 1+ PT INR APTT Carbonic Acid HCO3/H2CO3 Ratio ABG pH ABG pCO2 ABG pO2 ABG HCO3 ABG Total CO2 ABG O2 Saturation ABG Base Excess FiO2 Sodium 137.8 Potassium 4.7 Chloride 103 Carbon Dioxide 22 Anion Gap 13 BUN 15 Creatinine 0.97 Est GFR ( Amer) > 60 Est GFR (MDRD) Non-Af > 60 Glucose 125 H POC Glucose Calcium 9.6 Total Bilirubin 0.7 Direct Bilirubin 0.1 Neonat Total Bilirubin Not Reportable Neonat Direct Bilirubin Not Reportable Neonat Indirect Bili Not Reportable AST 17 ALT 14 Alkaline Phosphatase 83 Creatine Kinase CK-MB (CK-2) Troponin I NT-Pro-B Natriuret Pep 1230 H Total Protein 9.0 H Albumin 3.8 Free T3 pg/mL Urine Color Urine Appearance Urine pH Ur Specific [place] Urine Protein Urine Glucose (UA) Urine Ketones Urine Blood Urine Nitrite Urine Bilirubin Urine Urobilinogen Ur Leukocyte Esterase Urine WBC (Auto) Urine RBC (Auto) U Hyaline Cast (Auto) Urine Bacteria (Auto) Squamous Epi Cells Auto Urine Mucus (Auto) Urine Ascorbic Acid Serum Alcohol SARS-CoV-2 (PCR) Slides for Path Review 05/09/20 05/09/20 05/09/20 01:59 03:01 05:30 WBC RBC Hgb Hct MCV MCH MCHC RDW Plt Count Lymph % (Auto) [place] % (Auto) Eos % (Auto) Baso % (Auto) Absolute Neuts (auto) Absolute Lymphs (auto) Absolute Monos (auto) Absolute Eos (auto) Absolute Basos (auto) Total Counted Seg Neutrophils % Seg Neuts % (Manual) Band Neutrophils % Lymphocytes % (Manual) Monocytes % (Manual) Eosinophils % (Manual) Basophils % (Manual) Abs Neuts (Manual) Abs Lymphs (Manual) Abs Monocytes (Manual) Absolute Eos (Manual) Abs Basophils (Manual) Toxic Granulation Toxic Vacuolation Platelet Estimate Large Platelets Platelet Comment Polychromasia Anisocytosis Macrocytosis PT INR APTT Carbonic Acid 1.22 HCO3/H2CO3 Ratio 19:1 ABG pH 7.39 ABG pCO2 40.6 ABG pO2 241.2 H ABG HCO3 24.0 ABG Total CO2 25.3 ABG O2 Saturation 99.5 H ABG Base Excess -0.8 FiO2 65% Sodium Potassium Chloride Carbon Dioxide Anion Gap BUN Creatinine Est GFR ( Amer) Est GFR (MDRD) Non-Af Glucose POC Glucose Calcium Total Bilirubin Direct Bilirubin Neonat Total Bilirubin Neonat Direct Bilirubin Neonat Indirect Bili AST ALT Alkaline Phosphatase Creatine Kinase CK-MB (CK-2) Troponin I NT-Pro-B Natriuret Pep Total Protein Albumin Free T3 pg/mL 3.13 Urine Color NILDA Urine Appearance SLIGHTLY-CLOUDY Urine pH 5.0 Ur Specific [place] 1.014 Urine Protein 30 H Urine Glucose (UA) NEGATIVE Urine Ketones NEGATIVE Urine Blood NEGATIVE Urine Nitrite NEGATIVE Urine Bilirubin NEGATIVE Urine Urobilinogen 2.0 H Ur Leukocyte Esterase NEGATIVE Urine WBC (Auto) 2 Urine RBC (Auto) 2 U Hyaline Cast (Auto) 44 Urine Bacteria (Auto) TRACE Squamous Epi Cells Auto 3 Urine Mucus (Auto) MANY Urine Ascorbic Acid NEGATIVE Serum Alcohol SARS-CoV-2 (PCR) Slides for Path Review 05/09/20 05/09/20 05/09/20 06:40 06:40 06:40 WBC RBC Hgb Hct MCV MCH MCHC RDW Plt Count Lymph % (Auto) [place] % (Auto) Eos % (Auto) Baso % (Auto) Absolute Neuts (auto) Absolute Lymphs (auto) Absolute Monos (auto) Absolute Eos (auto) Absolute Basos (auto) Total Counted Seg Neutrophils % Seg Neuts % (Manual) Band Neutrophils % Lymphocytes % (Manual) Monocytes % (Manual) Eosinophils % (Manual) Basophils % (Manual) Abs Neuts (Manual) Abs Lymphs (Manual) Abs Monocytes (Manual) Absolute Eos (Manual) Abs Basophils (Manual) Toxic Granulation Toxic Vacuolation Platelet Estimate Large Platelets Platelet Comment Polychromasia Anisocytosis Macrocytosis PT 15.3 INR 1.20 APTT 30.2 Carbonic Acid HCO3/H2CO3 Ratio ABG pH ABG pCO2 ABG pO2 ABG HCO3 ABG Total CO2 ABG O2 Saturation ABG Base Excess FiO2 Sodium Potassium Chloride Carbon Dioxide Anion Gap BUN Creatinine Est GFR ( Amer) Est GFR (MDRD) Non-Af Glucose POC Glucose Calcium Total Bilirubin Direct Bilirubin Neonat Total Bilirubin Neonat Direct Bilirubin Neonat Indirect Bili AST ALT Alkaline Phosphatase Creatine Kinase 145 CK-MB (CK-2) 1.83 Troponin I 0.143 NT-Pro-B Natriuret Pep Total Protein Albumin Free T3 pg/mL Urine Color Urine Appearance Urine pH Ur Specific [place] Urine Protein Urine Glucose (UA) Urine Ketones Urine Blood Urine Nitrite Urine Bilirubin Urine Urobilinogen Ur Leukocyte Esterase Urine WBC (Auto) Urine RBC (Auto) U Hyaline Cast (Auto) Urine Bacteria (Auto) Squamous Epi Cells Auto Urine Mucus (Auto) Urine Ascorbic Acid Serum Alcohol SARS-CoV-2 (PCR) Slides for Path Review 05/09/20 05/09/2020 10:08 10:43 10:43 WBC Cancelled RBC Cancelled Hgb Cancelled Hct Cancelled MCV Cancelled MCH Cancelled MCHC Cancelled RDW Cancelled Plt Count Cancelled Lymph % (Auto) Cancelled [place] % (Auto) Cancelled Eos % (Auto) Cancelled Baso % (Auto) Cancelled Absolute Neuts (auto) Cancelled Absolute Lymphs (auto) Cancelled Absolute Monos (auto) Cancelled Absolute Eos (auto) Cancelled Absolute Basos (auto) Cancelled Total Counted Seg Neutrophils % Cancelled Seg Neuts % (Manual) Band Neutrophils % Lymphocytes % (Manual) Monocytes % (Manual) Eosinophils % (Manual) Basophils % (Manual) Abs Neuts (Manual) Abs Lymphs (Manual) Abs Monocytes (Manual) Absolute Eos (Manual) Abs Basophils (Manual) Toxic Granulation Toxic Vacuolation Platelet Estimate Cancelled Large Platelets Platelet Comment Polychromasia Anisocytosis Macrocytosis PT INR APTT Carbonic Acid HCO3/H2CO3 Ratio ABG pH ABG pCO2 ABG pO2 ABG HCO3 ABG Total CO2 ABG O2 Saturation ABG Base Excess FiO2 Sodium Potassium Chloride Carbon Dioxide Anion Gap BUN Creatinine Est GFR ( Amer) Est GFR (MDRD) Non-Af Glucose POC Glucose Calcium Total Bilirubin Direct Bilirubin Neonat Total Bilirubin Neonat Direct Bilirubin Neonat Indirect Bili AST ALT Alkaline Phosphatase Creatine Kinase Cancelled CK-MB (CK-2) Troponin I NT-Pro-B Natriuret Pep Total Protein Albumin Free T3 pg/mL Urine Color YELLOW Urine Appearance SLIGHTLY-CLOUDY Urine pH 5.0 Ur Specific [place] 1.010 Urine Protein NEGATIVE Urine Glucose (UA) NEGATIVE Urine Ketones NEGATIVE Urine Blood SMALL H Urine Nitrite NEGATIVE Urine Bilirubin NEGATIVE Urine Urobilinogen NEGATIVE Ur Leukocyte Esterase NEGATIVE Urine WBC (Auto) 2 Urine RBC (Auto) 1 U Hyaline Cast (Auto) 28 Urine Bacteria (Auto) Squamous Epi Cells Auto <1 Urine Mucus (Auto) MOD Urine Ascorbic Acid NEGATIVE Serum Alcohol SARS-CoV-2 (PCR) Slides for Path Review Cancelled 05/09/20 05/09/20 05/09/20 10:43 11:55 11:55 WBC 41.3 H* D RBC 3.84 L Hgb 13.0 L Hct 39.1 MCV 102 H MCH 33.9 H MCHC 33.2 RDW 17.2 H Plt Count 166 Lymph % (Auto) Not Reportable [place] % (Auto) Not Reportable Eos % (Auto) Not Reportable Baso % (Auto) Not Reportable Absolute Neuts (auto) Not Reportable Absolute Lymphs (auto) Not Reportable Absolute Monos (auto) Not Reportable Absolute Eos (auto) Not Reportable Absolute Basos (auto) Not Reportable Total Counted 100 Seg Neutrophils % Not Reportable Seg Neuts % (Manual) 91 H Band Neutrophils % Lymphocytes % (Manual) 2 L Monocytes % (Manual) 7 Eosinophils % (Manual) 0 Basophils % (Manual) 0 Abs Neuts (Manual) 37.6 H Abs Lymphs (Manual) 0.8 Abs Monocytes (Manual) 2.9 H Absolute Eos (Manual) 0.0 Abs Basophils (Manual) 0.0 Toxic Granulation SLIGHT Toxic Vacuolation PRESENT Platelet Estimate Large Platelets PRESENT Platelet Comment ADEQUATE Polychromasia Anisocytosis 1+ Macrocytosis 1+ PT INR APTT Carbonic Acid HCO3/H2CO3 Ratio ABG pH ABG pCO2 ABG pO2 ABG HCO3 ABG Total CO2 ABG O2 Saturation ABG Base Excess FiO2 Sodium Potassium Chloride Carbon Dioxide Anion Gap BUN Creatinine Est GFR ( Amer) Est GFR (MDRD) Non-Af Glucose POC Glucose Calcium Total Bilirubin Direct Bilirubin Neonat Total Bilirubin Neonat Direct Bilirubin Neonat Indirect Bili AST ALT Alkaline Phosphatase Creatine Kinase 2798 H CK-MB (CK-2) Cancelled Troponin I Cancelled NT-Pro-B Natriuret Pep Total Protein Albumin Free T3 pg/mL Urine Color Urine Appearance Urine pH Ur Specific [place] Urine Protein Urine Glucose (UA) Urine Ketones Urine Blood Urine Nitrite Urine Bilirubin Urine Urobilinogen Ur Leukocyte Esterase Urine WBC (Auto) Urine RBC (Auto) U Hyaline Cast (Auto) Urine Bacteria (Auto) Squamous Epi Cells Auto Urine Mucus (Auto) Urine Ascorbic Acid Serum Alcohol SARS-CoV-2 (PCR) Slides for Path Review 05/09/20 05/09/20 05/09/20 11:55 12:29 14:10 WBC RBC Hgb Hct MCV MCH MCHC RDW Plt Count Lymph % (Auto) [place] % (Auto) Eos % (Auto) Baso % (Auto) Absolute Neuts (auto) Absolute Lymphs (auto) Absolute Monos (auto) Absolute Eos (auto) Absolute Basos (auto) Total Counted Seg Neutrophils % Seg Neuts % (Manual) Band Neutrophils % Lymphocytes % (Manual) Monocytes % (Manual) Eosinophils % (Manual) Basophils % (Manual) Abs Neuts (Manual) Abs Lymphs (Manual) Abs Monocytes (Manual) Absolute Eos (Manual) Abs Basophils (Manual) Toxic Granulation Toxic Vacuolation Platelet Estimate Large Platelets Platelet Comment Polychromasia Anisocytosis Macrocytosis PT INR APTT Carbonic Acid HCO3/H2CO3 Ratio ABG pH ABG pCO2 ABG pO2 ABG HCO3 ABG Total CO2 ABG O2 Saturation ABG Base Excess FiO2 Sodium Potassium Chloride Carbon Dioxide Anion Gap BUN Creatinine Est GFR ( Amer) Est GFR (MDRD) Non-Af Glucose POC Glucose Calcium Total Bilirubin Direct Bilirubin Neonat Total Bilirubin Neonat Direct Bilirubin Neonat Indirect Bili AST ALT Alkaline Phosphatase Creatine Kinase 4892 H CK-MB (CK-2) 13.30 H Troponin I 0.118 NT-Pro-B Natriuret Pep Total Protein Albumin Free T3 pg/mL Urine Color Urine Appearance Urine pH Ur Specific [place] Urine Protein Urine Glucose (UA) Urine Ketones Urine Blood Urine Nitrite Urine Bilirubin Urine Urobilinogen Ur Leukocyte Esterase Urine WBC (Auto) Urine RBC (Auto) U Hyaline Cast (Auto) Urine Bacteria (Auto) Squamous Epi Cells Auto Urine Mucus (Auto) Urine Ascorbic Acid Serum Alcohol SARS-CoV-2 (PCR) NEGATIVE Slides for Path Review 05/09/20 05/09/20 14:10 14:10 WBC RBC Hgb Hct MCV MCH MCHC RDW Plt Count Lymph % (Auto) [place] % (Auto) Eos % (Auto) Baso % (Auto) Absolute Neuts (auto) Absolute Lymphs (auto) Absolute Monos (auto) Absolute Eos (auto) Absolute Basos (auto) Total Counted Seg Neutrophils % Seg Neuts % (Manual) Band Neutrophils % Lymphocytes % (Manual) Monocytes % (Manual) Eosinophils % (Manual) Basophils % (Manual) Abs Neuts (Manual) Abs Lymphs (Manual) Abs Monocytes (Manual) Absolute Eos (Manual) Abs Basophils (Manual) Toxic Granulation Toxic Vacuolation Platelet Estimate Large Platelets Platelet Comment Polychromasia Anisocytosis Macrocytosis PT INR APTT 56.9 H Carbonic Acid HCO3/H2CO3 Ratio ABG pH ABG pCO2 ABG pO2 ABG HCO3 ABG Total CO2 ABG O2 Saturation ABG Base Excess FiO2 Sodium Potassium Chloride Carbon Dioxide Anion Gap BUN Creatinine Est GFR ( Amer) Est GFR (MDRD) Non-Af Glucose POC Glucose Calcium Total Bilirubin Direct Bilirubin Neonat Total Bilirubin Neonat Direct Bilirubin Neonat Indirect Bili AST ALT Alkaline Phosphatase Creatine Kinase CK-MB (CK-2) 20.20 H Troponin I 0.108 NT-Pro-B Natriuret Pep Total Protein Albumin Free T3 pg/mL Urine Color Urine Appearance Urine pH Ur Specific [place] Urine Protein Urine Glucose (UA) Urine Ketones Urine Blood Urine Nitrite Urine Bilirubin Urine Urobilinogen Ur Leukocyte Esterase Urine WBC (Auto) Urine RBC (Auto) U Hyaline Cast (Auto) Urine Bacteria (Auto) Squamous Epi Cells Auto Urine Mucus (Auto) Urine Ascorbic Acid Serum Alcohol SARS-CoV-2 (PCR) Slides for Path Review Chest X-Ray 05/09/20 02:02 IMPRESSION: 1. No acute pulmonary findings. ECHOCARDIOGRAM: The left ventricle is normal in size. There is mild to moderate concentric left ventricular hypertrophy. LV EF is 45% to 50% Left ventricular systolic function is mild to moderately reduced. Doppler measurements suggest impaired left ventricular relaxation, which is associated with grade I/IV or mild diastolic dysfunction There is mild to moderate global hypokinesis of the left ventricle. There is no thrombus. No ASD,VSD or PFO seen. The right ventricle is normal in size and function. The right atrium is normal. The left atrium is mildly dilated. There is no evidence of mitral valve prolapse. There is no vegetation seen on the mitral valve. There is no mitral valve stenosis. There is a trace amount of mitral regurgitation There is no aortic valvular vegetation. There is no aortic valve stenosis There is no LVOT obstruction. There is a trace amount of aortic regurgitation There is no tricuspid stenosis. There is a trace amount of tricuspid regurgitation Tricuspid regurgitation jet envelope not well defined to measure RV systolic pressure accurately. There is no pulmonic valvular stenosis. There is no pulmonic valvular regurgitation. The aortic root is normal size. The inferior vena cava appeared normal and decreased > 50% with respiration (RAP 5-10 mmHg) There is no pericardial effusion. IMPRESSION/RECOMMENDATION 1.: 1. Elevated troponin . Troponin is coming down. This is secondary to supply demand mismatch open type II myocardial infarction]. There is no evidence of no n-ST relation [place]. We will treat the underlying cause. 2. Cardiomyopathy with mild to moderately reduced LV ejection fraction. Later patient would recommend to be have a IV Lexiscan Cardiolite stress test to make sure there is no underlying coronary artery disease. 3. Acute respiratory failure with hypoxemia. Continue current BiPAP continue anti-COPD treatment. 4. COPD most likely has acute exacerbation. 5. Bundle branch block pattern. 6. Significantly elevated white count: Leukocytosis: Patient has infection? Site. 7 History of tobacco abuse. 8. History of alcohol abuse in the past. 9. History of left BKA. 10. History of childhood poliomyelitis Medications reviewed. Medical regimen and management plan discussed with attending provider on the case. Medical decision making is of high complexity. 60 minutes spent as patient more than 50% of time spent in direct patient care. Will follow.
--- NOTE | 2020-05-09 18:31 | EKG REPORT ---
SEVERITY:- ABNORMAL ECG - SINUS RHYTHM LEFT BUNDLE BRANCH BLOCK : Confirmed by: Debbi Orozco 09-May-2020 18:30:44
--- NOTE | 2020-05-09 18:33 | EKG REPORT ---
SEVERITY:- ABNORMAL ECG - SINUS TACHYCARDIA MULTIFORM VENTRICULAR PREMATURE COMPLEXES PROBABLE LEFT ATRIAL ABNORMALITY LEFT BUNDLE BRANCH BLOCK : Confirmed by: Debbi Orozco 09-May-2020 18:31:02
[2020-05-09] MEDS: HALOPERIDOL LACTATE INJ 5 MG/1 ML VIAL IV PRN (19:11)
[2020-05-10] MEDS: LORAZEPAM INJ 2 MG/1 ML VIAL IV PRN ×7 (00:23→20:48)
[2020-05-10] MEDS: HALOPERIDOL LACTATE INJ 5 MG/1 ML VIAL IV PRN ×3 (01:38→17:06)
[2020-05-10] MEDS: VANCOMYCIN HCL 1,250 MG in DEXTROSE 5%-WATER 250 ML IV SCH ×2 (05:33→17:06)
[2020-05-10] MEDS: DIAZEPAM INJ 10 MG/2 ML DISP.SYRIN IV SCH ×3 (05:33→21:27)
[2020-05-10] MEDS: GABAPENTIN 400 MG CAPSULE PO SCH ×3 (05:34→21:27)
[2020-05-10 06:13] LABS: HEMATOCRIT 37.5 % (37.9-51.0); HEMOGLOBIN 12.3 g/dL (13.5-17.0); MEAN CORPUSCULAR HEMOGLOBIN 33.5 pg (27.0-33.4); MEAN CORPUSCULAR HGB CONC 32.8 g/dL (32.0-36.0); MEAN CORPUSCULAR VOLUME 102 fl (80-97); PLATELET COUNT 187 10^3/uL (150-450); RED BLOOD COUNT 3.67 10^6/uL (4.35-5.55); RED CELL DISTRIBUTION WIDTH 17.9 % (11.5-14.0)
[2020-05-10 06:23] LABS: ANION GAP 9 (5-19); BLOOD UREA NITROGEN 34 mg/dL (7-20); CALCIUM 9.3 mg/dL (8.4-10.2); CARBON DIOXIDE 26 mmol/L (22-30); CHLORIDE 103 mmol/L (98-107); CHOLESTEROL 129.73 mg/dL (0-200); GLUCOSE 97 mg/dL (75-110); POTASSIUM 4.7 mmol/L (3.6-5.0); TRIGLYCERIDES 80 mg/dL (<150)
[2020-05-10 06:33] LABS: DIRECT LDL 81 mg/dL (<100)
[2020-05-10 06:58] LABS: WHITE BLOOD COUNT 33.6 10^3/uL (4.0-10.5)
[2020-05-10] MEDS: MORPHINE SULFATE 10 MG/ML INJ IV PRN (08:59)
[2020-05-10] MEDS: DOCUSATE SODIUM 100 MG CAPSULE PO SCH ×2 (09:03→17:02)
[2020-05-10] MEDS: FAMOTIDINE 20 MG TABLET PO SCH ×2 (09:03→21:28)
[2020-05-10] MEDS: ASPIRIN 325 MG TABLET PO SCH (09:03)
[2020-05-10] MEDS: CEFEPIME 1 GM/D5W RTU 1 GM/50 ML RTUPB IV SCH ×2 (09:05→21:27)
[2020-05-10] MEDS: ENOXAPARIN SODIUM INJ 40 MG/0.4 ML DISP.SYRIN SUBCUT SCH (09:05)
[2020-05-10 11:52] LABS: PATH REVIEW PATHOLOGIST REVIEWED
[2020-05-10] MEDS ORDERED: MORPHINE SULFATE 10 MG/ML INJ IV PRN ×3 (12:32→13:00)
--- NOTE | 2020-05-10 13:00 | PDOC PROGRESS REPORT ---
Subjective Progress Note for:: 05/10/20 Subjective:: Still with withdrawal issues. Still gets agitated. Still not able to have meaningful conversation. We will need to increase scheduled benzodiazepine dosing. Reason For Visit: ACUTE RESPIRATORY FAILURE WITH HYPOXIA,ACUTE Physical Exam Vital Signs: Temp Pulse Resp BP Pulse Ox 97.6 F 86 18 165/108 H 93 05/10/20 08:15 05/10/20 07:00 05/10/20 12:13 05/10/20 08:15 05/10/20 12:13 Intake & Output 05/09/20 05/10/20 05/11/20 06:59 06:59 06:59 Intake Total 463 300 Output Total 150 1100 Balance -150 -637 300 Weight 106.594 kg 117.1 kg General appearance: PRESENT: mild distress - In three-point restraints. ABSENT: cooperative Respiratory exam: PRESENT: rhonchi - Possible faint rhonchi on the right. ABSENT: rales, tachypnea, wheezes Cardiovascular exam: PRESENT: RRR, +S1, +S2 GI/Abdominal exam: PRESENT: normal bowel sounds, soft. ABSENT: tenderness Neurological exam: PRESENT: altered, awake Psychiatric exam: PRESENT: unusual affect - Affect reflects alcohol withdrawal Skin exam: PRESENT: other - Spider angiomata on both cheeks Results Laboratory Results: 05/10/20 05:41 05/10/20 05:41 05/10/20 05/10/20 05/10/20 05:41 05:41 05:41 WBC 33.6 H* RBC 3.67 L Hgb 12.3 L Hct 37.5 L MCV 102 H MCH 33.5 H MCHC 32.8 RDW 17.9 H Plt Count 187 Sodium 137.7 Potassium 4.7 Chloride 103 Carbon Dioxide 26 Anion Gap 9 BUN 34 H Creatinine 1.09 Est GFR ( Amer) > 60 Glucose 97 Calcium 9.3 Magnesium 2.3 Triglycerides 80 Cholesterol 129.73 LDL Cholesterol Direct 81 VLDL Cholesterol 16.0 HDL Cholesterol 28 L TSH 1.07 05/09/20 05/09/20 05/09/20 01:59 01:59 06:40 Creatine Kinase 145 CK-MB (CK-2) Troponin I 0.018 NT-Pro-B Natriuret Pep 1230 H 05/09/20 05/09/20 05/09/20 06:40 10:43 10:43 Creatine Kinase Cancelled CK-MB (CK-2) 1.83 Cancelled Troponin I 0.143 Cancelled NT-Pro-B Natriuret Pep 05/09/20 05/09/20 05/09/20 11:55 11:55 14:10 Creatine Kinase 2798 H 4892 H CK-MB (CK-2) 13.30 H Troponin I 0.118 NT-Pro-B Natriuret Pep 05/09/20 05/09/20 05/09/20 14:10 18:25 18:25 Creatine Kinase 4615 H CK-MB (CK-2) 20.20 H 20.50 H Troponin I 0.108 NT-Pro-B Natriuret Pep 05/10/20 05:41 Creatine Kinase CK-MB (CK-2) Troponin I 0.058 NT-Pro-B Natriuret Pep Impressions: Chest X-Ray 05/09/20 02:02 IMPRESSION: 1. No acute pulmonary findings. Assessment and Plan - Diagnosis (1) Acute respiratory failure with hypoxia Is this a current diagnosis for this admission?: Yes Plan: 05/09/2020 The patient required BiPAP earlier today. Will monitor his oxygen requirements and supplement accordingly. 05/10/2020 Currently on nasal cannula. Continue treatment of pneumonia and COPD. (2) Leukocytosis Qualifiers: Leukocytosis type: unspecified Qualified Code(s): D72.829 - Elevated white blood cell count, unspecified Is this a current diagnosis for this admission?: Yes Plan: 05/09/2020 The patient's white count was 13,000 on admission and is now 40,000. After d iscussion with the she describes what were most likely rigors. There is an infection somewhere. No cultures were drawn in the emergency department. Chest x-ray is not remarkable for any large infiltrate. I have ordered stat blood cultures and urine culture. I have ordered broad-spectrum antibiotic therapy. We will continue to look for a source of infection. 05/10/2020 With initiation of antibiotics the white blood cell count is up to 33,000. Continue antibiotic therapy at this time. No positive cultures yet. My suspicion is pneumonia. (3) Alcoholic encephalopathy Is this a current diagnosis for this admission?: Yes Plan: 05/09/2020 Etiology unknown but most likely infection. The patient's states that he has a history of alcoholism but has not had a drink for 2 years. This is when he had the left below-knee amputation. 05/10/2020 Staff familiar with the patient had observed him directly consuming alcohol in heavy doses on a frequent basis. His encephalopathy is most likely alcohol related but there is probably a contributing component from infection. (4) Agitation Is this a current diagnosis for this admission?: Yes Plan: 05/09/2020 Unknown etiology. According to the it is not alcohol withdrawal. To the best of our knowledge she is not on pain medications. It could be due to infection. I will utilize scheduled and as needed sedation. 05/10/2020 I believe this is clearly alcohol withdrawal. I have increased the medications accordingly since the current doses were not quite adequate. (5) Elevated troponin Is this a current diagnosis for this admission?: Yes Plan: 05/09/2020 Initial elevation of troponin but this does started coming down. Stat echocardiogram was ordered. Dr. Singh will interpret the echocardiogram and see the patient but I do not believe this is cardiac. 05/10/2020Sunday troponins were ordered creatinine kinase levels were ordered as well. It was found patient does not rhabdo. This accounts for the increase in troponin. (6) Rhabdomyolysis Qualifiers: Rhabdomyolysis type: non-traumatic Qualified Code(s): M62.82 - Rhabdomyolysis Is this a current diagnosis for this admission?: Yes Plan: 05/10/2020 Unsure of the etiology. The patient has been very agitated. It was likely elevated on admission. Creatinine kinase is improving. We will recheck tomorrow. (7) Tobacco dependence due to cigarettes Is this a current diagnosis for this admission?: Yes Plan: 05/09/2020 Nicotine patch (8) Alcoholism Is this a current diagnosis for this admission?: Yes Plan: 05/10/2020 Heavy alcohol user. Continue scheduled and as needed benzodiazepines with as n eeded Haldol. (9) COPD (chronic obstructive pulmonary disease) Qualifiers: COPD type: unspecified COPD Qualified Code(s): J44.9 - Chronic obstructive pulmonary disease, unspecified Is this a current diagnosis for this admission?: Yes Plan: 05/09/2020 is a 2 pack/day smoker the patient likely has COPD. We will need to investigate further. 05/10/2020 Most likely infection but likely COPD present. Continue current treatment regimen - Time Time Spent with patient: 15-24 minutes Medications reviewed and adjusted accordingly: Yes
[2020-05-10] MEDS ORDERED: NORMAL SALINE 1000 ML 1,000 ML IV PRN (16:38)
--- NOTE | 2020-05-10 17:12 | Progress Note ---
Provider Note Provider Note: CARDIOLOGY PROGRESS NOTE by Dr. Vaishali Singh on 05/10/2020. SUBJECTIVE the patient appears to be agitated and confused and hence no meaningful conversation can be held. The patient is still in four-point restraints. He is still on the BiPAP. With antibiotics his leukocyte count is coming down. PHYSICAL EXAMINATION: The patient is moderately obese. He is very agitated and is on four-point restraints. Selected Entries 05/10/20 05/10/20 05/10/20 12:54 14:00 15:44 Temperature 97.9 F Temperature Axillary Source Pulse Rate 81 77 Respiratory 19 12 Rate Blood Pressure 146/66 H Blood Pressure 92 Mean BP Location Right Arm BP Position Supine O2 Sat by Pulse 99 95 Oximetry Oxygen Delivery Bipap Bipap Method Percent of 50 50 Oxygen HEAD: Is atraumatic normocephalic. EYES: Pupils are equal round regular reactive to light. ENT is negative. Neck is supple. There is no JVD. Carotids are equal there is no bruit there is no lymphadenopathy there is no goiter. LUNGS: Trachea central. There is diminished air entry prolonged expiration. There are scattered rhonchi throughout. There is no wheezing or rales of CHF. There is some dry crackles in the right base. HEART: S1-S2 is heard. There is no S3 gallop. There is no S4 gallop. There is systolic murmur left sternal border and the apex there is no rub. ABDOMEN: Is obese. Nontender there is no paraspinal megaly. Bowel sounds are well heard. EXTREMITIES: Right femorals are deep. There is no femoral bruits on the right leg, and right femorals are diminished right leg pulses diminished. There is no pedal edema in the right leg. 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 There is no DVT cellulitis. There is no calf tenderness. 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 Right facial droop was noticed. He does move all 3 extremities note left lower extremity is a prosthesis. Chest X-Ray 05/09/20 02:02 IMPRESSION: 1. No acute pulmonary finding IMPRESSION/RECOMMENDATION 1.: 1. Elevated troponin . Troponin is coming down. This is secondary to supply demand mismatch open type II myocardial infarction]. There is no evidence of non-ST relation PR. We will treat the underlying cause. 2. Cardiomyopathy with mild to moderately reduced LV ejection fraction. Later patient would recommend to be have a IV Lexiscan Cardiolite stress test to make sure there is no underlying coronary artery disease. 3. Acute respiratory failure with hypoxemia. Continue current BiPAP continue anti-COPD treatment. 4. Most likely right lower lobe pneumonia: Continue antibiotics. 5. COPD most likely has acute exacerbation. 6. Left bundle branch block pattern. 7. Significantly elevated white count: Leukocytosis: Patient has infection? Site. 8 History of tobacco abuse. 9. History of alcohol abuse in the past. 10. History of left BKA. 11. History of childhood poliomyelitis Medications reviewed. Medical regimen and management plan discussed with attending provider on the case. Medical decision making is of high complexity. 40 minutes spent as patient more than 50% of time spent in direct patient care. Will follow.
[2020-05-11 05:38] LABS: HEMATOCRIT 38.5 % (37.9-51.0); HEMOGLOBIN 12.6 g/dL (13.5-17.0); MEAN CORPUSCULAR HEMOGLOBIN 33.5 pg (27.0-33.4); MEAN CORPUSCULAR HGB CONC 32.6 g/dL (32.0-36.0); MEAN CORPUSCULAR VOLUME 103 fl (80-97); PLATELET COUNT 178 10^3/uL (150-450); RED BLOOD COUNT 3.75 10^6/uL (4.35-5.55); RED CELL DISTRIBUTION WIDTH 17.8 % (11.5-14.0); WHITE BLOOD COUNT 13.9 10^3/uL (4.0-10.5)
[2020-05-11 06:06] LABS: ANION GAP 7 (5-19); BLOOD UREA NITROGEN 33 mg/dL (7-20); CALCIUM 9.3 mg/dL (8.4-10.2); CARBON DIOXIDE 26 mmol/L (22-30); CHLORIDE 105 mmol/L (98-107); GLUCOSE 88 mg/dL (75-110); POTASSIUM 4.6 mmol/L (3.6-5.0)
[2020-05-11 06:10] LABS: VANCOMYCIN,TROUGH 14.2 ug/mL (5.0-20.0)
[2020-05-11 06:23] LABS: CREATINE KINASE 2506 U/L (55-170)
[2020-05-11] MEDS: DIAZEPAM INJ 10 MG/2 ML DISP.SYRIN IV SCH ×3 (06:24→21:36)
[2020-05-11] MEDS: VANCOMYCIN HCL 1,250 MG in DEXTROSE 5%-WATER 250 ML IV SCH ×2 (06:24→18:25)
[2020-05-11] MEDS: GABAPENTIN 400 MG CAPSULE PO SCH ×3 (06:25→21:37)
[2020-05-11] MEDS: HALOPERIDOL LACTATE INJ 5 MG/1 ML VIAL IV PRN (07:55)
[2020-05-11] MEDS: LORAZEPAM INJ 2 MG/1 ML VIAL IV PRN ×4 (07:55→18:19)
[2020-05-11] MEDS: DOCUSATE SODIUM 100 MG CAPSULE PO SCH ×2 (10:47→17:34)
[2020-05-11] MEDS: ASPIRIN 325 MG TABLET PO SCH (10:47)
[2020-05-11] MEDS: FAMOTIDINE 20 MG TABLET PO SCH ×2 (10:48→21:37)
[2020-05-11] MEDS: ENOXAPARIN SODIUM INJ 40 MG/0.4 ML DISP.SYRIN SUBCUT SCH (11:05)
[2020-05-11] MEDS: CEFEPIME 1 GM/D5W RTU 1 GM/50 ML RTUPB IV SCH ×2 (11:05→21:36)
--- NOTE | 2020-05-11 14:59 | Progress Note ---
Provider Note Provider Note: CARDIOLOGY PROGRESS NOTE by Dr. Vaishali Singh on 05/11/2020. SUBJECTIVE: The patient appears to be agitated and confused and hence no meaningful conversation can be held. The patient is still in four-point restraints. He is still on the BiPAP. With antibiotics his leukocyte count is coming down. Selected Entries 05/11/20 13:16 Temperature 97.6 F Temperature Axillary Source Pulse Rate 89 Respiratory 16 Rate Blood Pressure 129/54 H [Left Upper Arm ] Blood Pressure 79 Mean [Left Upper Arm] O2 Sat by Pulse 98 Oximetry PHYSICAL EXAMINATION: The patient is moderately obese. He is very agitated and is on four-point restraints. HEAD: Is atraumatic normocephalic. EYES: Pupils are equal round regular reactive to light. ENT is negative. Neck is supple. There is no JVD. Carotids are equal there is no bruit there is no lymphadenopathy there is no goiter. LUNGS: Trachea central. There is diminished air entry prolonged expiration. There are scattered rhonchi throughout. There is no wheezing or rales of CHF. There is some dry crackles in the right base. HEART: S1-S2 is heard. There is no S3 gallop. There is no S4 gallop. There is systolic murmur left sternal border and the apex there is no rub. ABDOMEN: Is obese. Nontender there is no paraspinal megaly. Bowel sounds are well heard. EXTREMITIES: Right femorals are deep. There is no femoral bruits on the right leg, and right femorals are diminished right leg pulses diminished. There is no pedal edema in the right leg. 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 There is no DVT cellulitis. There is no calf tenderness. HEALTH COORDINATOR and psychiatric not examined due to the patient's altered mental status the patient being very drowsy and at present also has been sedated. Right facial droop was noticed. He does move all 3 extremities note left lower extremity is a prosthesis. Chest X-Ray 05/09/20 02:02 IMPRESSION: 1. No acute pulmonary findings. Labs- All tests 24 hr 05/11/20 05/11/20 05/11/20 05:05 05:05 05:05 WBC 13.9 H RBC 3.75 L Hgb 12.6 L Hct 38.5 MCV 103 H MCH 33.5 H MCHC 32.6 RDW 17.8 H Plt Count 178 Sodium 138.2 Potassium 4.6 Chloride 105 Carbon Dioxide 26 Anion Gap 7 BUN 33 H Creatinine 1.05 1.05 Est GFR ( Amer) > 60 > 60 Est GFR (MDRD) Non-Af > 60 > 60 Glucose 88 Calcium 9.3 Magnesium 2.4 H Creatine Kinase 2506 H Time Trough Drawn Vancomycin Trough 05/11/20 05:05 WBC RBC Hgb Hct MCV MCH MCHC RDW Plt Count Sodium Potassium Chloride Carbon Dioxide Anion Gap BUN Creatinine Est GFR ( Amer) Est GFR (MDRD) Non-Af Glucose Calcium Magnesium Creatine Kinase Time Trough Drawn 0505 Vancomycin Trough 14.2 IMPRESSION/RECOMMENDATION 1.: 1. Elevated troponin . Troponin is coming down. This is secondary to supply demand mismatch open type II myocardial infarction]. There is no evidence of non-ST relation [place]. We will treat the underlying cause. 2. Cardiomyopathy with mild to moderately reduced LV ejection fraction. Later patient would recommend to be have a IV Lexiscan Cardiolite stress test to make sure there is no underlying coronary artery disease. 3. Acute respiratory failure with hypoxemia. Continue current BiPAP continue anti-COPD treatment. 4. Most likely right lower lobe pneumonia: Continue antibiotics. 5. COPD most likely has acute exacerbation. 6. Left bundle branch block pattern. 7. Significantly elevated white count: Leukocytosis: Patient has infection? Site. 8 History of tobacco abuse. 9. History of alcohol abuse in the past. 10. History of left BKA. 11. History of childhood poliomyelitis Medications reviewed. Medical regimen and management plan discussed with attending provider on the case. Medical decision making is of high complexity. 40 minutes spent as patient more than 50% of time spent in direct patient care. Will follow.
[2020-05-11] MEDS ORDERED: NORMAL SALINE 1000 ML 1,000 ML IV PRN (18:25)
--- NOTE | 2020-05-11 18:27 | PDOC PROGRESS REPORT ---
Subjective Progress Note for:: 05/11/20 Subjective:: Seen comfortable today without respiratory distress Reason For Visit: ACUTE RESPIRATORY FAILURE WITH HYPOXIA,ACUTE Physical Exam Vital Signs: Temp Pulse Resp BP Pulse Ox 98.4 F 80 20 117/56 L 98 05/11/20 16:10 05/11/20 16:10 05/11/20 16:10 05/11/20 16:10 05/11/20 16:10 Intake & Output 05/10/20 05/11/20 05/12/20 06:59 06:59 06:59 Intake Total 439 255 4592 Output Total 1100 1150 950 Balance -637 -600 400 Weight 117.1 kg 117.1 kg General appearance: PRESENT: no acute distress, cooperative Respiratory exam: PRESENT: symmetrical, unlabored. ABSENT: accessory muscle us e, retraction, tachypnea Cardiovascular exam: PRESENT: RRR, +S1, +S2. ABSENT: tachycardia GI/Abdominal exam: PRESENT: soft. ABSENT: rebound, rigid, tenderness Extremities exam: ABSENT: calf tenderness Neurological exam: PRESENT: alert, awake Psychiatric exam: ABSENT: agitated, anxious Focused psych exam: ABSENT: pressured speech Skin exam: ABSENT: jaundice Results Laboratory Results: 05/11/20 05:05 05/11/20 05:05 05/11/20 05/11/20 05/11/20 05:05 05:05 05:05 WBC 13.9 H RBC 3.75 L Hgb 12.6 L Hct 38.5 MCV 103 H MCH 33.5 H MCHC 32.6 RDW 17.8 H Plt Count 178 Sodium 138.2 Potassium 4.6 Chloride 105 Carbon Dioxide 26 Anion Gap 7 BUN 33 H Creatinine 1.05 1.05 Est GFR ( Amer) > 60 > 60 Glucose 88 Calcium 9.3 Magnesium 2.4 H 05/09/20 14:30 Catheterized Urine Urine Culture - Final NO GROWTH 2 DAYS 05/09/20 05/09/20 05/09/20 01:59 01:59 06:40 Creatine Kinase 145 CK-MB (CK-2) Troponin I 0.018 NT-Pro-B Natriuret Pep 1230 H 05/09/20 05/09/20 05/09/20 06:40 10:43 10:43 Creatine Kinase Cancelled CK-MB (CK-2) 1.83 Cancelled Troponin I 0.143 Cancelled NT-Pro-B Natriuret Pep 05/09/20 05/09/20 05/09/20 11:55 11:55 14:10 Creatine Kinase 2798 H 4892 H CK-MB (CK-2) 13.30 H Troponin I 0.118 NT-Pro-B Natriuret Pep 05/09/20 05/09/20 05/09/20 14:10 18:25 18:25 Creatine Kinase 4615 H CK-MB (CK-2) 20.20 H 20.50 H Troponin I 0.108 NT-Pro-B Natriuret Pep 05/10/20 05/11/20 05:41 05:05 Creatine Kinase 2506 H CK-MB (CK-2) Troponin I 0.058 NT-Pro-B Natriuret Pep Impressions: Chest X-Ray 05/09/20 02:02 IMPRESSION: 1. No acute pulmonary findings. Assessment and Plan - Diagnosis (1) Acute respiratory failure with hypoxia Is this a current diagnosis for this admission?: Yes (2) Alcoholic encephalopathy Is this a current diagnosis for this admission?: Yes (3) Leukocytosis Qualifiers: Leukocytosis type: unspecified Qualified Code(s): D72.829 - Elevated white blood cell count, unspecified Is this a current diagnosis for this admission?: Yes (4) Agitation Is this a current diagnosis for this admission?: Yes (5) COPD (chronic obstructive pulmonary disease) Qualifiers: COPD type: unspecified COPD Qualified Code(s): J44.9 - Chronic obstructive pulmonary disease, unspecified Is this a current diagnosis for this admission?: Yes (6) Rhabdomyolysis Qualifiers: Rhabdomyolysis type: non-traumatic Qualified Code(s): M62.82 - Rhabdomyolysis Is this a current diagnosis for this admission?: Yes (7) Tobacco dependence due to cigarettes Is this a current diagnosis for this admission?: Yes (8) Alcoholism Is this a current diagnosis for this admission?: Yes (9) Elevated troponin Is this a current diagnosis for this admission?: Yes - Plan Summary Summary: Patient is currently on volume for treatment of agitation. There was some suspicion for potential alcohol withdrawal beating too he states. Still on BiPAP for hypoxia. Will leave through tonight and start to wean tomorrow. Elevated troponin has been evaluated by electrical maintenance supervisor and thought to be secondary to demand perfusion mismatch and unlikely to be ACS. Patient is still on broad-spectrum antibiotics but there has not seemed to be any infection noted with chest x-ray negative, urinalysis and urine culture negative as well as blood cultures negative. We will perform a more thorough skin survey tomorrow. Check CBC in the a.m. I will place on gentle hydration for treatment of rhabdomyolysis but with caution given patient's cardiomyopathy. Continue to trend CK. - Time Time Spent with patient: Less than 15 minutes
[2020-05-12] MEDS ORDERED: DIGOXIN INJ 0.5 MG/2 ML AMPULE IV ONE (02:10)
--- NOTE | 2020-05-12 02:24 | EKG REPORT ---
SEVERITY:- ABNORMAL ECG - SINUS RHYTHM MULTIPLE VENTRICULAR PREMATURE COMPLEXES LEFT BUNDLE BRANCH BLOCK : Confirmed by: Vaishali Singh MD 12-May-2020 02:23:34
[2020-05-12 05:16] LABS: HEMATOCRIT 36.2 % (37.9-51.0); HEMOGLOBIN 12.1 g/dL (13.5-17.0); MEAN CORPUSCULAR HEMOGLOBIN 34.4 pg (27.0-33.4); MEAN CORPUSCULAR HGB CONC 33.4 g/dL (32.0-36.0); MEAN CORPUSCULAR VOLUME 103 fl (80-97); PLATELET COUNT 152 10^3/uL (150-450); RED BLOOD COUNT 3.52 10^6/uL (4.35-5.55); RED CELL DISTRIBUTION WIDTH 17.7 % (11.5-14.0)
[2020-05-12] MEDS: DIAZEPAM INJ 10 MG/2 ML DISP.SYRIN IV SCH ×2 (05:22→13:01)
[2020-05-12] MEDS: GABAPENTIN 400 MG CAPSULE PO SCH ×3 (05:22→21:27)
[2020-05-12] MEDS: VANCOMYCIN HCL 1,250 MG in DEXTROSE 5%-WATER 250 ML IV SCH ×2 (05:24→18:16)
[2020-05-12 05:36] LABS: ANION GAP 6 (5-19); BLOOD UREA NITROGEN 26 mg/dL (7-20); CALCIUM 9.1 mg/dL (8.4-10.2); CARBON DIOXIDE 26 mmol/L (22-30); CHLORIDE 107 mmol/L (98-107); CREATINE KINASE 1370 U/L (55-170); GLUCOSE 87 mg/dL (75-110); POTASSIUM 4.3 mmol/L (3.6-5.0)
--- NOTE | 2020-05-12 08:59 | RADIOLOGY REPORT (SQ) ---
EXAM DESCRIPTION: CHEST SINGLE VIEW IMAGES COMPLETED DATE/TIME: 05/12/2020 8:36 am REASON FOR STUDY: leukocytosis, hypoxia COMPARISON: 05/09/2020 EXAM PARAMETERS: NUMBER OF VIEWS: One view. TECHNIQUE: Single frontal radiographic view of the chest acquired. RADIATION DOSE: NA LIMITATIONS: None. FINDINGS: LUNGS AND PLEURA: Basilar interstitial markings are prominent but unchanged. No definite effusions. No pneumothorax. MEDIASTINUM AND HILAR STRUCTURES: No masses. Contour normal. HEART AND VASCULAR STRUCTURES: Heart remains enlarged with central vascular prominence. BONES: No acute findings. HARDWARE: None in the chest. OTHER: No other significant finding. IMPRESSION: No interval change in the chest. Cardiomegaly. Mild central vascular prominence. TECHNICAL DOCUMENTATION: JOB ID: [id number] [employer]- All Rights Reserved Reading location - IP/workstation name: [email or web address]
[2020-05-12] MEDS: DOCUSATE SODIUM 100 MG CAPSULE PO SCH ×2 (09:59→18:16)
[2020-05-12] MEDS: FAMOTIDINE 20 MG TABLET PO SCH ×2 (10:00→21:27)
[2020-05-12] MEDS: ASPIRIN 325 MG TABLET PO SCH ×2 (10:01→13:04)
[2020-05-12] MEDS: ENOXAPARIN SODIUM INJ 40 MG/0.4 ML DISP.SYRIN SUBCUT SCH (10:31)
[2020-05-12] MEDS: CEFEPIME 1 GM/D5W RTU 1 GM/50 ML RTUPB IV SCH ×2 (10:32→21:27)
--- NOTE | 2020-05-12 11:57 | Progress Note ---
Provider Note Provider Note: CARDIOLOGY PROGRESS NOTE by Dr. Vaishali Singh on 05/12/2020. SUBJECTIVE: The patient continues to be confused and very lethargic and does not answer any questions, but is of the BiPAP and is on nasal cannula. He still is on four-point soft restraints. There is no arrhythmias seen on the monitor. PHYSICAL EXAMINATION: The patient is moderately obese. With the current treatment with antibiotics the patient's white count is come down to 12,000. Selected Entries 05/12/20 10:32 Temperature 98.4 F Temperature Axillary Source Pulse Rate 84 Respiratory 18 Rate Blood Pressure 158/61 H Blood Pressure 93 Mean BP Location Right Arm BP Position Supine O2 Sat by Pulse 99 Oximetry Oxygen Flow 3.50 Rate Oxygen Delivery Nasal Cannula Method PHYSICAL EXAMINATION: The patient is moderately obese. He is very agitated and is on four-point restraints. HEAD: Is atraumatic normocephalic. EYES: Pupils are equal round regular reactive to light. ENT is negative. Neck is supple. There is no JVD. Carotids are equal there is no bruit there is no lymphadenopathy there is no goiter. LUNGS: Trachea central. There is diminished air entry prolonged expiration. There are scattered rhonchi throughout. There is no wheezing or rales of CHF. There is some dry crackles in the right base. HEART: S1-S2 is heard. There is no S3 gallop. There is no S4 gallop. There is systolic murmur left sternal border and the apex there is no rub. ABDOMEN: Is obese. Nontender there is no paraspinal megaly. Bowel sounds are well heard. EXTREMITIES: Right femorals are deep. There is no femoral bruits on the right leg, and right femorals are diminished right leg pulses diminished. There is no pedal edema in the right leg. 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 There is no DVT cellulitis. There is no calf tenderness. MAINFRAME PROGRAMMER ANALYST and psychiatric not exami ashli due to the patient's altered mental status the patient being very drowsy and at present also has been sedated. Right facial droop was noticed. He does move all 3 extremities note left lower extremity is a prosthesis. Labs- All tests 24 hr 05/12/20 05/12/20 04:14 04:14 WBC 12.0 H RBC 3.52 L Hgb 12.1 L Hct 36.2 L MCV 103 H MCH 34.4 H MCHC 33.4 RDW 17.7 H Plt Count 152 Sodium 139.3 Potassium 4.3 Chloride 107 Carbon Dioxide 26 Anion Gap 6 BUN 26 H Creatinine 0.80 Est GFR ( Amer) > 60 Est GFR (MDRD) Non-Af > 60 Glucose 87 Calcium 9.1 Magnesium 2.5 H Creatine Kinase 1370 H Chest X-Ray 05/09/20 02:02 IMPRESSION: 1. No acute pulmonary findings. Chest X-Ray 05/12/20 07:00 IMPRESSION: No interval change in the chest. Cardiomegaly. Mild central vascular prominence. IMPRESSION/RECOMMENDATION 1.: 1. Elevated troponin . Troponin is coming down. This is secondary to supply demand mismatch open type II myocardial infarction]. There is no evidence of non-ST relation DE. We will treat the underlying cause. 2. Cardiomyopathy with mild to moderately reduced LV ejection fraction. Later patient would recommend to be have a IV Lexiscan Cardiolite stress test to make sure there is no underlying coronary artery disease. 3. Acute respiratory failure with hypoxemia. Continue current BiPAP continue anti-COPD treatment. 4. Most likely right lower lobe pneumonia: Continue antibiotics. 5. COPD most likely has acute exacerbation. 6. Left bundle branch block pattern. 7. Significantly elevated white count: Leukocytosis: Patient has infection? Site. 8 History of tobacco abuse. 9. History of alcohol abuse in the past. 10. History of left BKA. 11. History of childhood poliomyelitis Medications reviewed. Medical regimen and management plan discussed with attending provider on the case. Medical decision making is of high complexity. 40 minutes spent as patient more than 50% of time spent in direct patient care. Will follow.
[2020-05-12] MEDS: LORAZEPAM INJ 2 MG/1 ML VIAL IV PRN (16:20)
[2020-05-12] MEDS ORDERED: LORAZEPAM INJ 2 MG/1 ML VIAL IV PRN ×2 (18:06→18:07)
[2020-05-12] MEDS ORDERED: HALOPERIDOL LACTATE INJ 5 MG/1 ML VIAL IM PRN (18:07)
--- NOTE | 2020-05-12 18:41 | PDOC PROGRESS REPORT ---
Subjective Progress Note for:: 05/12/20 Subjective:: This morning, but able to take patient on BiPAP. Placed on nasal cannula. He complained of dry mouth. Denied any pains. Still seems to get quite confused. Reason For Visit: ACUTE RESPIRATORY FAILURE WITH HYPOXIA,ACUTE Physical Exam Vital Signs: Temp Pulse Resp BP Pulse Ox 100.4 F 99 22 H 140/65 H 95 05/12/20 17:38 05/12/20 17:38 05/12/20 17:38 05/12/20 17:38 05/12/20 17:38 Intake & Output 05/11/20 05/12/20 05/13/20 06:59 06:59 06:59 Intake Total 550 1900 50 Output Total 1150 2150 Balance -600 -250 50 Weight 117.1 kg 117.3 kg General appearance: PRESENT: no acute distress, cooperative Neck exam: ABSENT: JVD Respiratory exam: PRESENT: clear to auscultation shilpa, symmetrical, tachypnea, unlabored. ABSENT: wheezes Cardiovascular exam: PRESENT: RRR, +S1, +S2. ABSENT: tachycardia GI/Abdominal exam: PRESENT: soft. ABSENT: rebound, rigid, tenderness Neurological exam: PRESENT: alert, awake, oriented to person. ABSENT: oriented to place, oriented to time Results Laboratory Results: 05/12/20 04:14 05/12/20 04:14 05/12/20 05/12/20 04:14 04:14 WBC 12.0 H RBC 3.52 L Hgb 12.1 L Hct 36.2 L MCV 103 H MCH 34.4 H MCHC 33.4 RDW 17.7 H Plt Count 152 Sodium 139.3 Potassium 4.3 Chloride 107 Carbon Dioxide 26 Anion Gap 6 BUN 26 H Creatinine 0.80 Est GFR ( Amer) > 60 Glucose 87 Calcium 9.1 Magnesium 2.5 H 05/09/20 05/09/20 05/09/20 01:59 01:59 06:40 Creatine Kinase 145 CK-MB (CK-2) Troponin I 0.018 NT-Pro-B Natriuret Pep 1230 H 05/09/20 05/09/20 05/09/20 06:40 10:43 10:43 Creatine Kinase Cancelled CK-MB (CK-2) 1.83 Cancelled Troponin I 0.143 Cancelled NT-Pro-B Natriuret Pep 05/09/20 05/09/20 05/09/20 11:55 11:55 14:10 Creatine Kinase 2798 H 4892 H CK-MB (CK-2) 13.30 H Troponin I 0.118 NT-Pro-B Natriuret Pep 05/09/20 05/09/20 05/09/20 14:10 18:25 18:25 Creatine Kinase 4615 H CK-MB (CK-2) 20.20 H 20.50 H Troponin I 0.108 NT-Pro-B Natriuret Pep 05/10/20 05/11/20 05/12/20 05:41 05:05 04:14 Creatine Kinase 2506 H 1370 H CK-MB (CK-2) Troponin I 0.058 NT-Pro-B Natriuret Pep Impressions: Chest X-Ray 05/12/20 07:00 IMPRESSION: No interval change in the chest. Cardiomegaly. Mild central vascular prominence. Assessment and Plan - Diagnosis (1) Acute respiratory failure with hypoxia Is this a current diagnosis for this admission?: Yes (2) Alcoholic encephalopathy Is this a current diagnosis for this admission?: Yes (3) Leukocytosis Qualifiers: Leukocytosis type: unspecified Qualified Code(s): D72.829 - Elevated white blood cell count, unspecified Is this a current diagnosis for this admission?: Yes (4) Agitation Is this a current diagnosis for this admission?: Yes (5) COPD (chronic obstructive pulmonary disease) Qualifiers: COPD type: unspecified COPD Qualified Code(s): J44.9 - Chronic obstructive pulmonary disease, unspecified Is this a current diagnosis for this admission?: Yes (6) Rhabdomyolysis Qualifiers: Rhabdomyolysis type: non-traumatic Qualified Code(s): M62.82 - Rhab domyolysis Is this a current diagnosis for this admission?: Yes (7) Tobacco dependence due to cigarettes Is this a current diagnosis for this admission?: Yes (8) Alcoholism Is this a current diagnosis for this admission?: Yes (9) Elevated troponin Is this a current diagnosis for this admission?: Yes (10) Left bundle branch block Is this a current diagnosis for this admission?: Yes (11) Cardiomyopathy Is this a current diagnosis for this admission?: Yes - Plan Summary Summary: Patient is currently on volume for treatment of agitation. There was some suspicion for potential alcohol withdrawal beating too he states. Still on BiPAP for hypoxia. Will leave through tonight and start to wean tomorrow. Elevated troponin has been evaluated by chemical treatment plant technician and thought to be secondary to demand perfusion mismatch and unlikely to be ACS. Patient is still on broad-spectrum antibiotics but there has not seemed to be a ny infection noted with chest x-ray negative, urinalysis and urine culture negative as well as blood cultures negative. We will perform a more thorough skin survey tomorrow. Check CBC in the a.m. I will place on gentle hydration for treatment of rhabdomyolysis but with caution given patient's cardiomyopathy. Continue to trend CK. 05/12/2020 In terms of patient's hypoxia, we are able to wean patient down to 3 L and off BiPAP today. I will keep patient off BiPAP at this time. Check a blood gas in the morning. Chest x-ray image reviewed by me today which seems to show central vascular prominence as well as some fluffy opacity in his right middle lobe and left lung. Currently he is on antibiotics for treatment of what may be a pneumonia. He is on vancomycin and cefepime. Continue to monitor CBC. Leukocytosis seems to be trending downwards. Patient still with acute metabolic encephalopathy. I have discontinued his standing IV diazepam as well as his morphine to see if his mental status improves. I will leave him on the low-dose of diazepam p.o. 2.5 mg every 12 hours for possible alcohol withdrawal but wean daily He received a dose of digoxin last night after being thought to be in atrial fibrillation. My review of telemetry, patient was seen sinus tach with known history of LBBB. He is currently in restraints for aggression and ripping out of catheters. Continue Haldol but will change from IV to IM as needed. - Time Time Spent with patient: Less than 15 minutes
[2020-05-12] MEDS: DIAZEPAM 5 MG TABLET PO SCH (21:31)
[2020-05-12] MEDS ORDERED: DIAZEPAM 5 MG TABLET PO SCH (22:00)
[2020-05-13] MEDS ORDERED: DIAZEPAM INJ 10 MG/2 ML DISP.SYRIN IV ONE (01:15)
[2020-05-13 05:15] LABS: ABSOLUTE BASOPHILS # (AUTO) 0.1 10^3/uL (0.0-0.2); ABSOLUTE MONOCYTES (AUTO) 1.9 10^3/uL (0.1-1.4); ABSOLUTE NEUT (AUTO) 7.9 10^3/uL (1.7-8.2); BASOPHILS % (AUTO) 0.9 % (0-2); EOSINOPHILS % (AUTO) 0.4 % (0-6); HEMOGLOBIN 12.3 g/dL (13.5-17.0); LYMPHOCYTES % (AUTO) 9.4 % (13-45); MEAN CORPUSCULAR HEMOGLOBIN 33.8 pg (27.0-33.4); MEAN CORPUSCULAR HGB CONC 33.2 g/dL (32.0-36.0); MEAN CORPUSCULAR VOLUME 102 fl (80-97); MONOCYTES % (AUTO) 17.5 % (3-13); PLATELET COUNT 161 10^3/uL (150-450); RED BLOOD COUNT 3.64 10^6/uL (4.35-5.55); RED CELL DISTRIBUTION WIDTH 17.4 % (11.5-14.0); SEGMENTED NEUTROPHILS % (AUTO) 71.8 % (42-78); TOTAL CELLS COUNTED % (AUTO) 100 %
[2020-05-13 05:36] LABS: ANION GAP 6 (5-19); BLOOD UREA NITROGEN 19 mg/dL (7-20); CALCIUM 8.9 mg/dL (8.4-10.2); CARBON DIOXIDE 25 mmol/L (22-30); CHLORIDE 107 mmol/L (98-107); GLUCOSE 98 mg/dL (75-110); POTASSIUM 3.9 mmol/L (3.6-5.0)
[2020-05-13 06:05] LABS: VANCOMYCIN,TROUGH 11.5 ug/mL (5.0-20.0)
[2020-05-13] MEDS: GABAPENTIN 400 MG CAPSULE PO SCH ×3 (06:35→22:13)
[2020-05-13] MEDS: VANCOMYCIN HCL 1,250 MG in DEXTROSE 5%-WATER 250 ML IV SCH (06:35)
[2020-05-13 07:15] LABS: ARTERIAL BLOOD BASE EXCESS 0.6 mmol/L; ARTERIAL BLOOD H2CO3 1.26 mmol/L (1.05-1.35); ARTERIAL BLOOD HCO3 25.5 mmol/L (20-24); ARTERIAL BLOOD O2 SATURATION 95.8 % (94-98); ARTERIAL BLOOD PCO2 41.8 mmHg (35-45); ARTERIAL BLOOD PO2 79.6 mmHg (80-100); ARTERIAL BLOOD TOTAL CO2 26.8 mmol/L (23-27)
[2020-05-13 07:17] LABS: ARTERIAL BLOOD FIO2 28%
[2020-05-13] MEDS: ENOXAPARIN SODIUM INJ 40 MG/0.4 ML DISP.SYRIN SUBCUT SCH (09:34)
[2020-05-13] MEDS: FAMOTIDINE 20 MG TABLET PO SCH ×2 (09:34→22:13)
[2020-05-13] MEDS: DOCUSATE SODIUM 100 MG CAPSULE PO SCH ×2 (09:34→17:07)
[2020-05-13] MEDS: DIAZEPAM 5 MG TABLET PO SCH ×2 (09:34→22:13)
[2020-05-13] MEDS: ASPIRIN 325 MG TABLET PO SCH (09:34)
[2020-05-13] MEDS: CEFEPIME 1 GM/D5W RTU 1 GM/50 ML RTUPB IV SCH ×2 (09:35→22:13)
[2020-05-13] MEDS ORDERED: CARBOXYMETHYLCELLULOSE SOD 0.5% 0.4 ML DROPERETTE OU PRN (16:28)
[2020-05-13] MEDS ORDERED: LORAZEPAM INJ 2 MG/1 ML VIAL IV PRN (16:33)
--- NOTE | 2020-05-13 16:36 | PDOC PROGRESS REPORT ---
Subjective Progress Note for:: 05/13/20 Subjective:: Patient still very confused but awake today. Still getting very agitated requiring restraints. When attempting to converse with patient patient continues to say do not touch me and attempting to punch me. Reason For Visit: ACUTE RESPIRATORY FAILURE WITH HYPOXIA,ACUTE Physical Exam Vital Signs: Temp Pulse Resp BP Pulse Ox 98.3 F 84 22 H 146/67 H 97 05/13/20 11:42 05/13/20 14:00 05/13/20 11:42 05/13/20 11:42 05/13/20 11:42 Intake & Output 05/12/20 05/13/20 05/14/20 06:59 06:59 06:59 Intake Total 1900 820 Output Total 2150 1200 320 Balance -250 -380 -320 Weight 117.3 kg 115.7 kg General appearance: PRESENT: no acute distress, obese. ABSENT: cooperative, thin Respiratory exam: PRESENT: clear to auscultation shilpa, symmetrical, unlabored. ABSENT: tachypnea, wheezes Cardiovascular exam: PRESENT: RRR, +S1, +S2. ABSENT: tachycardia GI/Abdominal exam: PRESENT: soft. ABSENT: rebound, rigid, tenderness Neurological exam: PRESENT: alert, awake. ABSENT: oriented to person, oriented to place, oriented to time, oriented to situation Psychiatric exam: PRESENT: agitated, anxious Results Laboratory Results: 05/13/20 05:02 05/13/20 05:02 05/13/20 05/13/20 05/13/20 05:02 05:02 05:02 WBC 11.0 H RBC 3.64 L Hgb 12.3 L Hct 37.0 L MCV 102 H MCH 33.8 H MCHC 33.2 RDW 17.4 H Plt Count 161 Seg Neutrophils % 71.8 Carbonic Acid HCO3/H2CO3 Ratio ABG pH ABG pCO2 ABG pO2 ABG HCO3 ABG O2 Saturation ABG Base Excess FiO2 Sodium 137.5 Potassium 3.9 Chloride 107 Carbon Dioxide 25 Anion Gap 6 BUN 19 Creatinine 0.70 0.70 Est GFR ( Amer) > 60 > 60 Glucose 98 Calcium 8.9 Magnesium 2.1 05/13/20 06:45 WBC RBC Hgb Hct MCV MCH MCHC RDW Plt Count Seg Neutrophils % Carbonic Acid 1.26 HCO3/H2CO3 Ratio 20:1 ABG pH 7.40 ABG pCO2 41.8 ABG pO2 79.6 L ABG HCO3 25.5 H ABG O2 Saturation 95.8 ABG Base Excess 0.6 FiO2 28% Sodium Potassium Chloride Carbon Dioxide Anion Gap BUN Creatinine Est GFR ( Amer) Glucose Calcium Magnesium 05/09/20 01:59 Blood Blood Culture - Final Anaerococcus (Peptostrep) Sp. 05/12/20 18:35 Nasophary (Mrsa Only) MRSA Culture - Final NO MRSA RECOVERED 05/09/20 05/09/20 05/09/20 01:59 01:59 06:40 Creatine Kinase 145 CK-MB (CK-2) Troponin I 0.018 NT-Pro-B Natriuret Pep 1230 H 05/09/20 05/09/20 05/09/20 06:40 10:43 10:43 Creatine Kinase Cancelled CK-MB (CK-2) 1.83 Cancelled Troponin I 0.143 Cancelled NT-Pro-B Natriuret Pep 05/09/20 05/09/20 05/09/20 11:55 11:55 14:10 Creatine Kinase 2798 H 4892 H CK-MB (CK-2) 13.30 H Troponin I 0.118 NT-Pro-B Natriuret Pep 05/09/20 05/09/20 05/09/20 14:10 18:25 18:25 Creatine Kinase 4615 H CK-MB (CK-2) 20.20 H 20.50 H Troponin I 0.108 NT-Pro-B Natriuret Pep 05/10/20 05/11/20 05/12/20 05:41 05:05 04:14 Creatine Kinase 2506 H 1370 H CK-MB (CK-2) Troponin I 0.058 NT-Pro-B Natriuret Pep Impressions: Chest X-Ray 05/12/20 07:00 IMPRESSION: No interval change in the chest. Cardiomegaly. Mild central vascular prominence. Assessment and Plan - Diagnosis (1) Acute respiratory failure with hypoxia Is this a current diagnosis for this admission?: Yes (2) Alcoholic encephalopathy Is this a current diagnosis for this admission?: Yes (3) Leukocytosis Qualifiers: Leukocytosis type: unspecified Qualified Code(s): D72.829 - Elevated white blood cell count, unspecified Is this a current diagnosis for this admission?: Yes (4) Agitation Is this a current diagnosis for this admission?: Yes (5) COPD (chronic obstructive pulmonary disease) Qualifiers: COPD type: unspecified COPD Qualified Code(s): J44.9 - Chronic obstructive pulmonary disease, unspecified Is this a current diagnosis for this admission?: Yes (6) Rhabdomyolysis Qualifiers: Rhabdomyolysis type: non-traumatic Qualified Code(s): M62.82 - Rhabdomyolysis Is this a current diagnosis for this admission?: Yes (7) Tobacco dependence due to cigarettes Is this a current diagnosis for this admission?: Yes (8) Alcoholism Is this a current diagnosis for this admission?: Yes (9) Elevated troponin Is this a current diagnosis for this admission?: Yes (10) Left bundle branch block Is this a current diagnosis for this admission?: Yes (11) Cardiomyopathy Is this a current diagnosis for this admission?: Yes - Plan Summary Summary: Patient is currently on volume for treatment of agitation. There was some suspicion for potential alcohol withdrawal beating too he states. Still on BiPAP for hypoxia. Will leave through tonight and start to wean tomorrow. Elevated troponin has been evaluated by tombstone polisher and thought to be secondary to demand perfusion mismatch and unlikely to be ACS. Patient is still on broad-spectrum antibiotics but there has not seemed to be any infection noted with chest x-ray negative, urinalysis and urine culture negative as well as blood cultures negative. We will perform a more thorough skin survey tomorrow. Check CBC in the a.m. I will place on gentle hydration for treatment of rhabdomyolysis but with caution given patient's cardiomyopathy. Continue to trend CK. 05/12/2020 In terms of patient's hypoxia, we are able to wean patient down to 3 L and off BiPAP today. I will keep patient off BiPAP at this time. Check a blood gas in the morning. Chest x-ray image reviewed by me today which seems to show central vascular prominence as well as some fluffy opacity in his right middle lobe and left lung. Currently he is on antibiotics for treatment of what may be a pneumonia. He is on vancomycin and cefepime. Continue to monitor CBC. Leukocytosis seems to be trending downwards. Patient still with acute metabolic encephalopathy. I have discontinued his standing IV diazepam as well as his morphine to see if his mental status impro ves. I will leave him on the low-dose of diazepam p.o. 2.5 mg every 12 hours for possible alcohol withdrawal but wean daily He received a dose of digoxin last night after being thought to be in atrial fibrillation. My review of telemetry, patient was seen sinus tach with known history of LBBB. He is currently in restraints for aggression and ripping out of catheters. Continue Haldol but will change from IV to IM as needed. 05/13/2020 Patient's hypoxia continues to improve and we have been able to wean patient down to 2 L nasal cannula. Patient has been able to remain off the BiPAP. ABG this morning was essentially normal on 2 L NC. We will continue to try to wean oxygen as tolerated. WBC count is trending down. I will continue cefepime for potential mild pneumonia but I will discontinue vancomycin as MRSA swab is negative. CIWA score was elevated early in the morning at 14. But has currently resolved as last CIWA score was 7. On diazepam 2.5 mg every 12 hours and Ativan as needed for elevated CIWA's. Patient remains delirious and confused with aggressive behavior requiring rest raints. He is also on Neurontin. Haldol as needed for agitation IM. Noted tachycardic while sleeping with left bundle branch block which is known. We have reviewed EKG with Dr. Leroy who is following patient. Electrolytes appear normal. Continue to monitor CBC and electrolyte levels. - Time Time Spent with patient: 15-24 minutes
[2020-05-13] MEDS ORDERED: VANCOMYCIN HCL 1,500 MG in DEXTROSE 5%-WATER 250 ML IV SCH (18:00)
--- NOTE | 2020-05-13 19:13 | Progress Note ---
Provider Note Provider Note: CARDIOLOGY PROGRESS NOTE by Dr. Vaishali Singh on 05/13/2020. SUBJECTIVE: The patient is off the BiPAP and is on nasal cannula. He is still on four-point restraints. He is very confused and when asked any questions he makes very hostile moves so no input available from the patient. There is no arrhythmias seen on the monitor. PHYSICAL EXAMINATION: The patient is moderately obese. He is quite agitated. Selected Entries 05/13/20 11:42 Temperature 98.3 F Temperature Axillary Source Pulse Rate 85 Respiratory 22 H Rate Blood Pressure 146/67 H Blood Pressure 93 Mean BP Location Left Arm BP Position Supine O2 Sat by Pulse 97 Oximetry Oxygen Flow 2.00 Rate Oxygen Delivery Nasal Cannula Method HEAD: Is atraumatic normocephalic. EYES: Pupils are equal round regular reactive to light. ENT is negative. Neck is supple. There is no JVD. Carotids are equal there is no bruit there is no lymphadenopathy there is no goiter. LUNGS: Trachea central. There is diminished air entry prolonged expiration. There are scattered rhonchi throughout. There is no wheezing or rales of CHF. There is some dry crackles in the right base. HEART: S1-S2 is heard. There is no S3 gallop. There is no S4 gallop. There is systolic murmur left sternal border and the apex there is no rub. ABDOMEN: Is obese. Nontender there is no paraspinal megaly. Bowel sounds are well heard. EXTREMITIES: Right femorals are deep. There is no femoral bruits on the right leg, and right femorals are diminished right leg pulses diminished. There is no pedal edema in the right leg. 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 There is no DVT cellulitis. There is no calf tenderness. TEACHING MANAGER and psychiatric not examined due to the patient's altered mental status the patient being very drowsy and at present also has been sedated. Right facial droop was noticed. He does move all 3 extremities note left lower extremity is a prosthesis. Labs- All tests 24 hr 05/13/20 05/13/20 05/13/20 00:11 05:02 05:02 WBC RBC Hgb Hct MCV MCH MCHC RDW Plt Count Lymph % (Auto) Griggs % (Auto) Eos % (Auto) Baso % (Auto) Absolute Neuts (auto) Absolute Lymphs (auto) Absolute Monos (auto) Absolute Eos (auto) Absolute Basos (auto) Seg Neutrophils % Carbonic Acid HCO3/H2CO3 Ratio ABG pH ABG pCO2 ABG pO2 ABG HCO3 ABG Total CO2 ABG O2 Saturation ABG Base Excess FiO2 Sodium Potassium Chloride Carbon Dioxide Anion Gap BUN Creatinine 0.70 Est GFR ( Amer) > 60 Est GFR (MDRD) Non-Af > 60 Glucose POC Glucose 91 Calcium Magnesium 2.1 Time Trough Drawn 0502 Vancomycin Trough 11.5 05/13/20 05/13/20 05/13/20 05:02 05:02 06:45 WBC 11.0 H RBC 3.64 L Hgb 12.3 L Hct 37.0 L MCV 102 H MCH 33.8 H MCHC 33.2 RDW 17.4 H Plt Count 161 Lymph % (Auto) 9.4 L Griggs % (Auto) 17.5 H Eos % (Auto) 0.4 Baso % (Auto) 0.9 Absolute Neuts (auto) 7.9 Absolute Lymphs (auto) 1.0 Absolute Monos (auto) 1.9 H Absolute Eos (auto) 0.0 Absolute Basos (auto) 0.1 Seg Neutrophils % 71.8 Carbonic Acid 1.26 HCO3/H2CO3 Ratio 20:1 ABG pH 7.40 ABG pCO2 41.8 ABG pO2 79.6 L ABG HCO3 25.5 H ABG Total CO2 26.8 ABG O2 Saturation 95.8 ABG Base Excess 0.6 FiO2 28% Sodium 137.5 Potassium 3.9 Chloride 107 Carbon Dioxide 25 Anion Gap 6 BUN 19 Creatinine 0.70 Est GFR ( Amer) > 60 Est GFR (MDRD) Non-Af > 60 Glucose 98 POC Glucose Calcium 8.9 Magnesium Time Trough Drawn Vancomycin Trough 05/13/20 05/13/20 05/13/20 07:07 11:43 23:02 WBC RBC Hgb Hct MCV MCH MCHC RDW Plt Count Lymph % (Auto) Griggs % (Auto) Eos % (Auto) Baso % (Auto) Absolute Neuts (auto) Absolute Lymphs (auto) Absolute Monos (auto) Absolute Eos (auto) Absolute Basos (auto) Seg Neutrophils % Carbonic Acid HCO3/H2CO3 Ratio ABG pH ABG pCO2 ABG pO2 ABG HCO3 ABG Total CO2 ABG O2 Saturation ABG Base Excess FiO2 Sodium Potassium Chloride Carbon Dioxide Anion Gap BUN Creatinine Est GFR ( Amer) Est GFR (MDRD) Non-Af Glucose POC Glucose 94 98 114 H Calcium Magnesium Time Trough Drawn Vancomycin Trough Chest X-Ray 05/09/20 02:02 IMPRESSION: 1. No acute pulmonary findings. Chest X-Ray 05/12/20 07:00 IMPRESSION: No interval change in the chest. Cardiomegaly. Mild central vascular prominence. IMPRESSION/RECOMMENDATION 1.: 1. Elevated troponin . Troponin is coming down. This is secondary to supply demand mismatch open type II myocardial infarction]. There is no evidence of non-ST relation DC. We will treat the underlying cause. 2. Cardiomyopathy with mild to moderately reduced LV ejection fraction. Later patient would recommend to be have a IV Lexiscan Cardiolite stress test to make sure there is no underlying coronary artery disease. 3. Acute respiratory failure with hypoxemia. Continue current BiPAP continue anti-COPD treatment. 4. Most likely right lower lobe pneumonia: Continue antibiotics. 5. COPD most likely has acute exacerbation. 6. Left bundle branch block pattern. 7. Significantly elevated white count: Leukocytosis: Patient has infection? Site. 8 History of tobacco abuse. 9. History of alcohol abuse in the past. 10. History of left BKA. 11. History of childhood poliomyelitis Medications reviewed. Medical regimen and management plan discussed with attending provider on the case. Medical decision making is of moderate complexity. 40 minutes spent as patient more than 50% of time spent in direct patient care. Will follow.
--- NOTE | 2020-05-13 19:33 | EKG REPORT ---
SEVERITY:- ABNORMAL ECG - SINUS RHYTHM VENTRICULAR PREMATURE COMPLEX PROBABLE LEFT ATRIAL ABNORMALITY LEFT VENTRICULAR HYPERTROPHY LEFT BUNDLE BRANCH BLOCK : Confirmed by: Vaishali Singh MD 13-May-2020 19:32:44
[2020-05-14] MEDS: GABAPENTIN 400 MG CAPSULE PO SCH ×3 (05:14→21:12)
[2020-05-14 06:23] LABS: ABSOLUTE BASOPHILS # (AUTO) 0.1 10^3/uL (0.0-0.2); ABSOLUTE EOSINOPHILS # (AUTO) 0.1 10^3/uL (0.0-0.6); ABSOLUTE MONOCYTES (AUTO) 1.6 10^3/uL (0.1-1.4); ABSOLUTE NEUT (AUTO) 6.7 10^3/uL (1.7-8.2); EOSINOPHILS % (AUTO) 0.8 % (0-6); HEMATOCRIT 38.1 % (37.9-51.0); HEMOGLOBIN 12.9 g/dL (13.5-17.0); LYMPHOCYTES % (AUTO) 10.6 % (13-45); MEAN CORPUSCULAR HEMOGLOBIN 34.4 pg (27.0-33.4); MEAN CORPUSCULAR HGB CONC 33.9 g/dL (32.0-36.0); MEAN CORPUSCULAR VOLUME 102 fl (80-97); MONOCYTES % (AUTO) 16.9 % (3-13); PLATELET COUNT 175 10^3/uL (150-450); RED BLOOD COUNT 3.76 10^6/uL (4.35-5.55); SEGMENTED NEUTROPHILS % (AUTO) 70.7 % (42-78); TOTAL CELLS COUNTED % (AUTO) 100 %; WHITE BLOOD COUNT 9.5 10^3/uL (4.0-10.5)
[2020-05-14 06:31] LABS: CARBON DIOXIDE 24 mmol/L (22-30); GLUCOSE 90 mg/dL (75-110)
[2020-05-14 06:34] LABS: ANION GAP 10 (5-19); BLOOD UREA NITROGEN 19 mg/dL (7-20); CALCIUM 9.1 mg/dL (8.4-10.2); CHLORIDE 104 mmol/L (98-107); POTASSIUM 4.1 mmol/L (3.6-5.0)
[2020-05-14] MEDS: CEFEPIME 1 GM/D5W RTU 1 GM/50 ML RTUPB IV SCH ×2 (09:58→21:12)
[2020-05-14] MEDS: ASPIRIN 325 MG TABLET PO SCH (09:58)
[2020-05-14] MEDS: DOCUSATE SODIUM 100 MG CAPSULE PO SCH ×2 (09:58→17:06)
[2020-05-14] MEDS: FAMOTIDINE 20 MG TABLET PO SCH ×2 (09:58→21:12)
[2020-05-14] MEDS: ENOXAPARIN SODIUM INJ 40 MG/0.4 ML DISP.SYRIN SUBCUT SCH (09:59)
--- NOTE | 2020-05-14 10:00 | PDOC PROGRESS REPORT ---
Subjective Progress Note for:: 05/14/20 Subjective:: Patient is a little more awake and fully oriented today. He is asking why he is in the hospital. Does not seem to recall much of his recent events. Patient states that he has not drank alcohol in over a year. Will have conversation with to see if at all this is true. Denies fevers or chills. Denies shortness of breath at this time. 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 Reason For Visit: ACUTE RESPIRATORY FAILURE WITH HYPOXIA,ACUTE Physical Exam Vital Signs: Temp Pulse Resp BP Pulse Ox 97.8 F 67 24 H 143/87 H 100 05/14/20 03:16 05/14/20 07:00 05/14/20 03:16 05/14/20 03:16 05/14/20 03:16 Intake & Output 05/13/20 05/14/20 05/15/20 06:59 06:59 06:59 Intake Total 820 350 Output Total 1200 995 Balance -380 -645 Weight 115.7 kg 114.2 kg General appearance: PRESENT: no acute distress, cooperative Neck exam: ABSENT: JVD Respiratory exam: PRESENT: clear to auscultation shilpa, unlabored. ABSENT: tachypnea, wheezes Cardiovascular exam: PRESENT: RRR, +S1, +S2. ABSENT: tachycardia GI/Abdominal exam: PRESENT: soft. ABSENT: rebound, rigid, tenderness Neurological exam: PRESENT: alert, awake, oriented to person, oriented to place, oriented to time Results Laboratory Results: 05/14/20 05:50 05/14/20 05:50 05/14/20 05/14/20 05:50 05:50 WBC 9.5 RBC 3.76 L Hgb 12.9 L Hct 38.1 MCV 102 H MCH 34.4 H MCHC 33.9 RDW 17.0 H Plt Count 175 Seg Neutrophils % 70.7 Sodium 137.6 Potassium 4.1 Chloride 104 Carbon Dioxide 24 Anion Gap 10 BUN 19 Creatinine 0.63 Est GFR ( Amer) > 60 Glucose 90 Calcium 9.1 Magnesium 2.1 05/09/20 01:59 Blood Blood Culture - Final Anaerococcus (Peptostrep) Sp. 05/12/20 18:35 Nasophary (Mrsa Only) MRSA Culture - Final NO MRSA RECOVERED 05/09/20 05/09/20 05/09/20 01:59 01:59 06:40 Creatine Kinase 145 CK-MB (CK-2) Troponin I 0.018 NT-Pro-B Natriuret Pep 1230 H 05/09/20 05/09/20 05/09/20 06:40 10:43 10:43 Creatine Kinase Cancelled CK-MB (CK-2) 1.83 Cancelled Troponin I 0.143 Cancelled NT-Pro-B Natriuret Pep 05/09/20 05/09/20 05/09/20 11:55 11:55 14:10 Creatine Kinase 2798 H 4892 H CK-MB (CK-2) 13.30 H Troponin I 0.118 NT-Pro-B Natriuret Pep 05/09/20 05/09/20 05/09/20 14:10 18:25 18:25 Creatine Kinase 4615 H CK-MB (CK-2) 20.20 H 20.50 H Troponin I 0.108 NT-Pro-B Natriuret Pep 05/10/20 05/11/20 05/12/20 05:41 05:05 04:14 Creatine Kinase 2506 H 1370 H CK-MB (CK-2) Troponin I 0.058 NT-Pro-B Natriuret Pep Impressions: Chest X-Ray 05/12/20 07:00 IMPRESSION: No interval change in the chest. Cardiomegaly. Mild central vascular prominence. Assessment and Plan - Diagnosis (1) Acute respiratory failure with hypoxia Is this a current diagnosis for this admission?: Yes (2) Alcoholic encephalopathy Is this a current diagnosis for this admission?: Yes (3) Leukocytosis Qualifiers: Leukocytosis type: unspecified Qualified Code(s): D72.829 - Elevated white blood cell count, unspecified Is this a current diagnosis for this admission?: Yes (4) Agitation Is this a current diagnosis for this admission?: Yes (5) COPD (chronic obstructive pulmonary disease) Qualifiers: COPD type: unspecified COPD Qualified Code(s): J44.9 - Chronic obstructive pulmonary disease, unspecified Is this a current diagnosis for this admission?: Yes (6) Rhabdomyolysis Qualifiers: Rhabdomyolysis type: non-traumatic Qualified Code(s): M62.82 - Rhabdomyolysis Is this a current diagnosis for this admission?: Yes (7) Tobacco dependence due to cigarettes Is this a current diagnosis for this admission?: Yes (8) Alcoholism Is this a current diagnosis for this admission?: Yes (9) Elevated troponin Is this a current diagnosis for this admission?: Yes (10) Left bundle branch block Is this a current diagnosis for this admission?: Yes (11) Cardiomyopathy Is this a current diagnosis for this admission?: Yes - Plan Summary Summary: Patient is currently on volume for treatment of agitation. There was some suspicion for potential alcohol withdrawal beating too he states. Still on BiPAP for hypoxia. Will leave through tonight and start to wean tomorrow. Elevated troponin has been evaluated by grain grader and thought to be secondary to demand perfusion mismatch and unlikely to be ACS. Patient is still on broad-spectrum antibiotics but there has not seemed to be any infection noted with chest x-ray negative, urinalysis and urine culture negative as well as blood cultures negative. We will perform a more thorough skin survey tomorrow. Check CBC in the a.m. I will place on gentle hydration for treatment of rhabdomyolysis but with caution given patient's cardiomyopathy. Continue to trend CK. 05/12/2020 In terms of patient's hypoxia, we are able to wean patient down to 3 L and off BiPAP today. I will keep patient off BiPAP at this time. Check a blood gas in the morning. Chest x-ray image reviewed by me today which seems to show central vascular prominence as well as some fluffy opacity in his right middle lobe and left lung. Currently he is on antibiotics for treatment of what may be a pneumonia. He is on vancomycin and cefepime. Continue to monitor CBC. Leukocytosis seems to be trending downwards. Patient still with acute metabolic encephalopathy. I have discontinued his standing IV diazepam as well as his morphine to see if his mental status improves. I will leave him on the low-dose of diazepam p.o. 2.5 mg every 12 hours for p ossible alcohol withdrawal but wean daily He received a dose of digoxin last night after being thought to be in atrial fibrillation. My review of telemetry, patient was seen sinus tach with known history of LBBB. He is currently in restraints for aggression and ripping out of catheters. Continue Haldol but will change from IV to IM as needed. 05/13/2020 Patient's hypoxia continues to improve and we have been able to wean patient down to 2 L nasal cannula. Patient has been able to remain off the BiPAP. ABG this morning was essentially normal on 2 L NC. We will continue to try to wean oxygen as tolerated. WBC count is trending down. I will continue cefepime for potential mild pneumonia but I will discontinue vancomycin as MRSA swab is negative. CIWA score was elevated early in the morning at 14. But has currently resolved as last CIWA score was 7. On diazepam 2.5 mg every 12 hours and Ativan as needed for elevated CIWA's. Patient remains delirious and confused with aggressive behavior requiring restraints. He is also on Neurontin. Haldol as needed for agitation IM. Noted tachycardic while sleeping with left bundle branch block which is known. We have reviewed EKG with Dr. Leroy who is following patient. Electrolytes appear normal. Continue to monitor CBC and electrolyte levels. 05/14/2020 Patient looks a lot better today now that his narcotics are being weaned off. And is fully awake and oriented. Seems very weak with debility. I will have physical and occupational therapy work with patient I have discontinued patient's diazepam. CIWA scores seem to be very low. P atient currently denies drinking alcohol for over a year which brings the diagnosis of alcohol withdrawal into question. I will confirm with as it seems prior conversations with indicated that patient was still drinking. Keep Ativan on standby as needed. I will continue to wean nasal cannula. Currently on 2 L. Leukocytosis is resolving. We will continue with cefepime for possible pneu monia. - Time Time Spent with patient: Less than 15 minutes
--- NOTE | 2020-05-14 22:45 | Progress Note ---
Provider Note Provider Note: CARDIOLOGY PROGRESS NOTE by Dr. De Patterson on 05/14/2020. SUBJECTIVE: Surprisingly the patient very conscious awake alert and oriented x3. He denies any chest pain or discomfort. There is no shortness of breath. There is no PND orthopnea or leg edema. He denies any cough or sputum production. There is no TIA CVA symptoms. There is no atrial or ventricular arrhythmias seen on the monitor. PHYSICAL EXAMINATION: The patient is mildly obese. At present in no acute distress Selected Entries 05/14/20 11:28 Temperature 98.4 F Temperature Oral Source Pulse Rate 73 Respiratory 19 Rate Blood Pressure 123/53 L Blood Pressure 76 Mean BP Location Left Arm BP Position Supine O2 Sat by Pulse 97 Oximetry Oxygen Flow 3.00 Rate Oxygen Delivery Nasal Cannula Method HEAD: Is atraumatic normocephalic. EYES: Pupils are equal round regular reactive to light. ENT is negative. Neck is supple. There is no JVD. Carotids are equal there is no bruit there is no lymphadenopathy there is no goiter. LUNGS: Trachea central. There is diminished air entry prolonged expiration. There are scattered rhonchi throughout. There is no wheezing or rales of CHF. There is some dry crackles in the right base. HEART: S1-S2 is heard. There is no S3 gallop. There is no S4 gallop. There is systolic murmur left sternal border and the apex there is no rub. ABDOMEN: Is obese. Nontender there is no paraspinal megaly. Bowel sounds are well heard. EXTREMITIES: Right femorals are deep. There is no femoral bruits on the right leg, and right femorals are diminished right leg pulses diminished. There is no pedal edema in the right leg. 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 There is no DVT cellulitis. There is no calf tenderness. [employer]: The patient is conscious awake alert oriented x3 with no focal deficits. PSYCHIATRIC: Today the patient judgment insight are intact. His affect is normal. Labs- All tests 24 hr 05/13/20 05/14/20 05/14/20 23:02 05:09 05:50 WBC 9.5 RBC 3.76 L Hgb 12.9 L Hct 38.1 MCV 102 H MCH 34.4 H MCHC 33.9 RDW 17.0 H Plt Count 175 Lymph % (Auto) 10.[address] % (Auto) 16.9 H Eos % (Auto) 0.8 Baso % (Auto) 1.0 Absolute Neuts (auto) 6.7 Absolute Lymphs (auto) 1.0 Absolute Monos (auto) 1.6 H Absolute Eos (auto) 0.1 Absolute Basos (auto) 0.1 Seg Neutrophils % 70.7 Sodium Potassium Chloride Carbon Dioxide Anion Gap BUN Creatinine Est GFR ( Amer) Est GFR (MDRD) Non-Af Glucose POC Glucose 114 H 85 Calcium Magnesium 05/14/20 05/14/20 05/14/20 05:50 11:27 16:22 WBC RBC Hgb Hct MCV MCH MCHC RDW Plt Count Lymph % (Auto) [facility] % (Auto) Eos % (Auto) Baso % (Auto) Absolute Neuts (auto) Absolute Lymphs (auto) Absolute Monos (auto) Absolute Eos (auto) Absolute Basos (auto) Seg Neutrophils % Sodium 137.6 Potassium 4.1 Chloride 104 Carbon Dioxide 24 Anion Gap 10 BUN 19 Creatinine 0.63 Est GFR ( Amer) > 60 Est GFR (MDRD) Non-Af > 60 Glucose 90 POC Glucose 100 92 Calcium 9.1 Magnesium 2.1 Chest X-Ray 05/09/20 02:02 IMPRESSION: 1. No acute pulmonary findings. Chest X-Ray 05/12/20 07:00 IMPRESSION: No interval change in the chest. Cardiomegaly. Mild central vascular prominence. IMPRESSION/RECOMMENDATION 1.: 1. Elevated troponin . Troponin is coming down. This is secondary to supply demand mismatch open type II myocardial infarction]. There is no evidence of non-ST relation NE. We will treat the underlying cause. 2. Cardiomyopathy with mild to moderately reduced LV ejection fraction. Later patient would recommend to be have a IV Lexiscan Cardiolite stress test to make sure there is no underlying coronary artery disease. Patient is now awake and with full mental faculties. And is able to swallow. Hence we will start the patient on a beta-emigdio and an MALVIN inhibitor. And will titrate the dose as to the maximum the patient can tolerate it. 3. Acute respiratory failure with hypoxemia. Continue current BiPAP continue anti-COPD treatment. 4. Most likely right lower lobe pneumonia: Continue antibiotics. 5. COPD most likely has acute exacerbation. 6. Left bundle branch block pattern. 7. Significantly elevated white count: Leukocytosis: Patient has infection? Site. White count is come back down to normal. 8 History of tobacco abuse. 9. History of alcohol abuse in the past. 10. History of left BKA. 11. History of childhood poliomyelitis Medications reviewed. Medical regimen and management plan discussed with attending provider on the case. Medical decision making is of high complexity. This is due to new medications being started by me. 40 minutes spent as patient more than 50% of time spent in direct patient care. Will follow.
[2020-05-15] MEDS: GABAPENTIN 400 MG CAPSULE PO SCH (05:02)
[2020-05-15 05:40] LABS: ABSOLUTE BASOPHILS # (AUTO) 0.1 10^3/uL (0.0-0.2); ABSOLUTE EOSINOPHILS # (AUTO) 0.1 10^3/uL (0.0-0.6); ABSOLUTE LYMPHOCYTES (AUTO) 1.4 10^3/uL (0.5-4.7); ABSOLUTE MONOCYTES (AUTO) 1.4 10^3/uL (0.1-1.4); ABSOLUTE NEUT (AUTO) 5.7 10^3/uL (1.7-8.2); BASOPHILS % (AUTO) 0.8 % (0-2); EOSINOPHILS % (AUTO) 1.1 % (0-6); HEMATOCRIT 37.6 % (37.9-51.0); HEMOGLOBIN 12.6 g/dL (13.5-17.0); LYMPHOCYTES % (AUTO) 15.7 % (13-45); MEAN CORPUSCULAR HEMOGLOBIN 34.4 pg (27.0-33.4); MEAN CORPUSCULAR HGB CONC 33.4 g/dL (32.0-36.0); MEAN CORPUSCULAR VOLUME 103 fl (80-97); MONOCYTES % (AUTO) 16.2 % (3-13); PLATELET COUNT 183 10^3/uL (150-450); RED BLOOD COUNT 3.65 10^6/uL (4.35-5.55); RED CELL DISTRIBUTION WIDTH 16.9 % (11.5-14.0); SEGMENTED NEUTROPHILS % (AUTO) 66.2 % (42-78); TOTAL CELLS COUNTED % (AUTO) 100 %; WHITE BLOOD COUNT 8.7 10^3/uL (4.0-10.5)
--- NOTE | 2020-05-15 08:55 | Progress Note ---
Provider Note Provider Note: Patient discharged home even prior to my seeing him hence will not bill the patient today.
[2020-05-15] MEDS ORDERED: BISACODYL 5 MG TABEC PO ONE (09:15)
[2020-05-15] MEDS: FAMOTIDINE 20 MG TABLET PO SCH (09:27)
[2020-05-15] MEDS: DOCUSATE SODIUM 100 MG CAPSULE PO SCH (09:27)
[2020-05-15] MEDS: CEFEPIME 1 GM/D5W RTU 1 GM/50 ML RTUPB IV SCH (09:27)
[2020-05-15] MEDS: ENOXAPARIN SODIUM INJ 40 MG/0.4 ML DISP.SYRIN SUBCUT SCH (09:28)
[2020-05-15] MEDS ORDERED: LISINOPRIL 5 MG TABLET PO SCH (10:00)
[2020-05-15] MEDS ORDERED: ASPIRIN 81 MG TABLET, ENT COATED PO SCH (10:00)
[2020-05-15] MEDS ORDERED: METOPROLOL SUCCINATE 25 MG TAB.SR.24H PO SCH (10:00)
--- NOTE | 2020-05-15 11:35 | PDOC DISCHARGE SUMMARY ---
Impression - Admit/DC Date/PCP Admission Date/Primary Care Provider: 05/09/20 06:45 LISANDRO LILLY PA-C Discharge Date: 05/15/20 - Discharge Diagnosis (1) Acute metabolic encephalopathy Is this a current diagnosis for this admission?: Yes (2) Acute respiratory failure with hypoxia Is this a current diagnosis for this admission?: Yes (3) Leukocytosis Is this a current diagnosis for this admission?: Yes (4) Delirium due to another medical condition Is this a current diagnosis for this admission?: Yes (5) Agitation Is this a current diagnosis for this admission?: Yes (6) Rhabdomyolysis Is this a current diagnosis for this admission?: Yes (7) Tobacco dependence due to cigarettes Is this a current diagnosis for this admission?: Yes (8) Alcoholism Is this a current diagnosis for this admission?: Yes (9) Elevated troponin Is this a current diagnosis for this admission?: Yes (10) Left bundle branch block Is this a current diagnosis for this admission?: Yes (11) Cardiomyopathy Is this a current diagnosis for this admission?: Yes (12) History of poliomyelitis Is this a current diagnosis for this admission?: Yes - Assessment Summary: Patient is currently on volume for treatment of agitation. There was some suspicion for potential alcohol withdrawal beating too he states. Still on BiPAP for hypoxia. Will leave through tonight and start to wean tomorrow. Elevated troponin has been evaluated by professor of marketing and thought to be secondary to demand perfusion mismatch and unlikely to be ACS. Patient is still on broad-spectrum antibiotics but there has not seemed to be any infection noted with chest x-ray negative, urinalysis and urine culture negative as well as blood cultures negative. We will perform a more thorough skin survey tomorrow. Check CBC in the a.m. I will place on gentle hydration for treatment of rhabdomyolysis but with caution given patient's cardiomyopathy. Continue to trend CK. 05/12/2020 In terms of patient's hypoxia, we are able to wean patient down to 3 L and off BiPAP today. I will keep patient off BiPAP at this time. Check a blood gas in the morning. Chest x-ray image reviewed by me today which seems to show central vascular prominence as well as some fluffy opacity in his right middle lobe and left lung. Currently he is on antibiotics for treatment of what may be a pneumonia. He is on vancomycin and cefepime. Continue to monitor CBC. Leukocytosis seems to be trending downwards. Patient still with acute metabolic encephalopathy. I have discontinued his standing IV diazepam as well as his morphine to see if his mental status improves. I will leave him on the low-dose of diazepam p.o. 2.5 mg every 12 hours for possible alcohol withdrawal but wean daily He received a dose of digoxin last night after being thought to be in atrial fibrillation. My review of telemetry, patient was seen sinus tach with known history of LBBB. He is currently in restraints for aggression and ripping out of catheters. Continue Haldol but will change from IV to IM as needed. 05/13/2020 Patient's hypoxia continues to improve and we have been able to wean patient do wn to 2 L nasal cannula. Patient has been able to remain off the BiPAP. ABG this morning was essentially normal on 2 L NC. We will continue to try to wean oxygen as tolerated. WBC count is trending down. I will continue cefepime for potential mild pneumonia but I will discontinue vancomycin as MRSA swab is negative. CIWA score was elevated early in the morning at 14. But has currently resolved as last CIWA score was 7. On diazepam 2.5 mg every 12 hours and Ativan as needed for elevated CIWA's. Patient remains delirious and confused with aggressive behavior requiring restraints. He is also on Neurontin. Haldol as needed for agitation IM. Noted tachycardic while sleeping with left bundle branch block which is known. We have reviewed EKG with Dr. Leroy who is following patient. Electrolytes appear normal. Continue to monitor CBC and electrolyte levels. 05/14/2020 Patient looks a lot better today now that his narcotics are being weaned off. And is fully awake and oriented. Seems very weak with debility. I will have physical and occupational therapy work with patient I have discontinued patient's diazepam. CIWA scores seem to be very low. Patient currently denies drinking alcohol for over a year which brings the diagnosis of alcohol withdrawal into question. I will confirm with as it seems prior conversations with indicated that patient was still drinking. Keep Ativan on standby as needed. I will continue to wean nasal cannula. Currently on 2 L. Leukocytosis is resolving. We will continue with cefepime for possible pneumonia. 05/15/2020 Patient continues to look well. Remains fully oriented and back to his normal self. Metabolic encephalopathy has resolved. Agitation and aggressive behavior have also resolved. He has not needed any sedating medications since. He was able to walk with physical therapy yesterday. PT recommends home health with PT. Patient's typically uses a wheelchair to get around. It seems that patient's metabolic encephalopathy was likely secondary to delirium from his infection rather than alcohol withdrawal as patient and patient's both confirm that patient has not had an alcoholic beverage in a year. We will continue treatment of pneumonia with p.o. Levaquin for 3 more days to complete a total of 10 days of antibiotic course. Leukocytosis remains resolved and patient has been on room air since yesterday with adequate SPO2. I have discussed plan with patient and patient's and patient is eager to go home. I have discussed with patient and patient's the patient is to follow-up with Dr. Eli for stress test. Patient is being discharged on Toprol-XL and lisinopril for his cardiomyopathy. Patient will need pulmonary function test to determine if he truly does have COPD. - Additional Information Resuscitation Status: Full Code Discharge Diet: Cardiac Referrals: LISANDRO LILLY PA-C [Primary Care Provider] - Follow up as needed DIVINE ELI MD [ACTIVE STAFF] - Prescriptions: Docusate Sodium [Colace 100 mg Capsule] 100 mg PO BID #60 capsule Levofloxacin [Levaquin] 750 mg PO DAILY 3 Days #3 tablet Polyethylene Glycol 3350 [Miralax Powder 17 gm/Packet] 1 packet PO DAILY PRN #1 pkg PRN Reason: Lisinopril [Prinivil 5 mg Tablet] 5 mg PO Q12 #60 tablet Metoprolol Succinate [Toprol Xl 25 mg Tab.sr] 25 mg PO Q12 #60 tab.sr.24h Home Medications: Aspirin [Ecotrin 81 mg EC Tablet] 81 mg PO DAILY 02/28/19 Gabapentin [Neurontin 400 mg Capsule] 400 mg PO TID 05/09/20 Docusate Sodium [Colace 100 mg Capsule] 100 mg PO BID #60 capsule 05/15/20 Levofloxacin [Levaquin] 750 mg PO DAILY 3 Days #3 tablet 05/15/20 Lisinopril [Prinivil 5 mg Tablet] 5 mg PO Q12 #60 tablet 07/04/20 Metoprolol Succinate [Toprol Xl 25 mg Tab.sr] 25 mg PO Q12 #60 tab.sr.24h 05/15/20 Polyethylene Glycol 3350 [Miralax Powder 17 gm/Packet] 1 packet PO DAILY PRN #1 pkg 05/15/20 History of Present Illiness History of Present Illness: According to admitting provider: JACQUES PETER is a 74 year old male with a hi story of hypertension, polio and left leg amputation. The patient is unable to provide any history. I did speak to his however. 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 He had multiple surgeries at the age of 7 for his polio but she does not have all of the details. Physical Exam Vital Signs: Temp Pulse Resp BP Pulse Ox 98.0 F 74 16 130/61 H 94 05/15/20 07:38 05/15/20 07:38 05/15/20 07:38 05/15/20 07:38 05/15/20 07:38 Intake & Output 05/14/20 05/15/20 05/16/20 06:59 06:59 06:59 Intake Total 400 1715 Output Total 995 925 Balance -595 790 Weight 114.2 kg 115.1 kg General appearance: PRESENT: no acute distress, cooperative Respiratory exam: PRESENT: clear to auscultation shilpa, unlabored. ABSENT: accessory muscle use, retraction, tachypnea, wheezes Cardiovascular exam: PRESENT: +S1, +S2. ABSENT: tachycardia Neurological exam: PRESENT: alert, awake, oriented to person, oriented to place, oriented to time, oriented to situation Results Laboratory Results: WBC 8.7 10^3/uL (4.0-10.5) 05/15/20 04:19 RBC 3.65 10^6/uL (4.35-5.55) L 05/15/20 04:19 Hgb 12.6 g/dL (13.5-17.0) L 05/15/20 04:19 Hct 37.6 % (37.9-51.0) L 05/15/20 04:19 MCV 103 fl (80-97) H 05/15/20 04:19 MCH 34.4 pg (27.0-33.4) H 05/15/20 04:19 MCHC 33.4 g/dL (32.0-36.0) 05/15/20 04:19 RDW 16.9 % (11.5-14.0) H 05/15/20 04:19 Plt Count 183 10^3/uL (150-450) 05/15/20 04:19 Lymph % (Auto) 15.7 % (13-45) 05/15/20 04:19 [place] % (Auto) 16.2 % (3-13) H 05/15/20 04:19 Eos % (Auto) 1.1 % (0-6) 05/15/20 04:19 Baso % (Auto) 0.8 % (0-2) 05/15/20 04:19 Absolute Neuts (auto) 5.7 10^3/uL (1.7-8.2) 05/15/20 04:19 Absolute Lymphs (auto) 1.4 10^3/uL (0.5-4.7) 05/15/20 04:19 Absolute Monos (auto) 1.4 10^3/uL (0.1-1.4) 05/15/20 04:19 Absolute Eos (auto) 0.1 10^3/uL (0.0-0.6) 05/15/20 04:19 Absolute Basos (auto) 0.1 10^3/uL (0.0-0.2) 05/15/20 04:19 Total Counted 100 05/09/20 11:55 Seg Neutrophils % 66.2 % (42-78) 05/15/20 04:19 Seg Neuts % (Manual) 91 % (42-78) H 05/09/20 11:55 Band Neutrophils % 4 % (3-5) 05/09/20 01:59 Lymphocytes % (Manual) 2 % (13-45) L 05/09/20 11:55 Monocytes % (Manual) 7 % (3-13) 05/09/20 11:55 Eosinophils % (Manual) 0 % (0-6) 05/09/20 11:55 Basophils % (Manual) 0 % (0-2) 05/09/20 11:55 Abs Neuts (Manual) 37.6 10^3/uL (1.7-8.2) H 05/09/20 11:55 Abs Lymphs (Manual) 0.8 10^3/uL (0.5-4.7) 05/09/20 11:55 Abs Monocytes (Manual) 2.9 10^3/uL (0.1-1.4) H 05/09/20 11:55 Absolute Eos (Manual) 0.0 10^3/uL (0.0-0.6) 05/09/20 11:55 Abs Basophils (Manual) 0.0 10^3/uL (0.0-0.2) 05/09/20 11:55 Toxic Granulation SLIGHT 05/09/20 11:55 Toxic Vacuolation PRESENT 05/09/20 11:55 Platelet Estimate Cancelled 05/09/20 10:43 Large Platelets PRESENT 05/09/20 11:55 Platelet Comment ADEQUATE 05/09/20 11:55 Polychromasia 1+ 05/09/20 01:59 Anisocytosis 1+ 05/09/20 11:55 Macrocytosis 1+ 05/09/20 11:55 PT 15.3 SEC (11.4-15.4) 05/09/20 06:40 INR 1.20 05/09/20 06:40 APTT 56.9 SEC (23.5-35.8) H 05/09/20 14:10 Carbonic Acid 1.26 mmol/L (1.05-1.35) 05/13/20 06:45 HCO3/H2CO3 Ratio 20:1 05/13/20 06:45 ABG pH 7.40 (7.35-7.45) 05/13/20 06:45 ABG pCO2 41.8 mmHg (35-45) 05/13/20 06:45 ABG pO2 79.6 mmHg (80-100) L 05/13/20 06:45 ABG HCO3 25.5 mmol/L (20-24) H 05/13/20 06:45 ABG Total CO2 26.8 mmol/L (23-27) 05/13/20 06:45 ABG O2 Saturation 95.8 % (94-98) 05/13/20 06:45 ABG Base Excess 0.6 mmol/L 05/13/20 06:45 FiO2 28% 05/13/20 06:45 Sodium 137.6 mmol/L (137-145) 05/14/20 05:50 Potassium 4.1 mmol/L (3.6-5.0) 05/14/20 05:50 Chloride 104 mmol/L (98-107) 05/14/20 05:50 Carbon Dioxide 24 mmol/L (22-30) 05/14/20 05:50 Anion Gap 10 (5-19) 05/14/20 05:50 BUN 19 mg/dL (7-20) 05/14/20 05:50 Creatinine 0.63 mg/dL (0.52-1.25) 05/14/20 05:50 Est GFR ( Amer) > 60 (>60) 05/14/20 05:50 Est GFR (MDRD) Non-Af > 60 (>60) 05/14/20 05:50 Glucose 90 mg/dL (75-110) 05/14/20 05:50 POC Glucose 92 mg/dL (70-110) 05/14/20 16:22 Calcium 9.1 mg/dL (8.4-10.2) 05/14/20 05:50 Magnesium 2.1 mg/dL (1.6-2.3) 05/14/20 05:50 Total Bilirubin 0.7 mg/dL (0.2-1.3) 05/09/20 01:59 Direct Bilirubin 0.1 mg/dL (0.0-0.4) 05/09/20 01:59 Neonat Total Bilirubin Not Reportable 05/09/20 01:59 Neonat Direct Bilirubin Not Reportable 05/09/20 01:59 Neonat Indirect Bili Not Reportable 05/09/20 01:59 AST 17 U/L (17-59) 05/09/20 01:59 ALT 14 U/L (<50) 05/09/20 01:59 Alkaline Phosphatase 83 U/L (38-126) 05/09/20 01:59 Creatine Kinase 1370 U/L (55-170) H 05/12/20 04:14 CK-MB (CK-2) 20.50 ng/mL (<4.55) H 05/09/20 18:25 Troponin I 0.058 ng/mL 05/10/20 05:41 NT-Pro-B Natriuret Pep 1230 pg/mL (<125) H 05/09/20 01:59 Total Protein 9.0 g/dL (6.3-8.2) H 05/09/20 01:59 Albumin 3.8 g/dL (3.5-5.0) 05/09/20 01:59 Triglycerides 80 mg/dL (<150) 05/10/20 05:41 Cholesterol 129.73 mg/dL (0-200) 05/10/20 05:41 LDL Cholesterol Direct 81 mg/dL (<100) 05/10/20 05:41 VLDL Cholesterol 16.0 mg/dL (10-31) 05/10/20 05:41 HDL Cholesterol 28 mg/dL (>40) L 05/10/20 05:41 TSH 1.07 uIU/mL (0.47-4.68) 05/10/20 05:41 Free T3 pg/mL 3.13 pg/mL (2.77-5.27) 05/09/20 01:59 Urine Color YELLOW 05/09/20 10:08 Urine Appearance SLIGHTLY-CLOUDY 05/09/20 10:08 Urine pH 5.0 (5.0-9.0) 05/09/20 10:08 Ur Specific [place] 1.010 05/09/20 10:08 Urine Protein NEGATIVE mg/dL (NEGATIVE) 05/09/20 10:08 Urine Glucose (UA) NEGATIVE mg/dL (NEGATIVE) 05/09/20 10:08 Urine Ketones NEGATIVE mg/dL (NEGATIVE) 05/09/20 10:08 Urine Blood SMALL (NEGATIVE) H 05/09/20 10:08 Urine Nitrite NEGATIVE (NEGATIVE) 05/09/20 10:08 Urine Bilirubin NEGATIVE (NEGATIVE) 05/09/20 10:08 Urine Urobilinogen NEGATIVE mg/dL (<2.0) 05/09/20 10:08 Ur Leukocyte Esterase NEGATIVE (NEGATIVE) 05/09/20 10:08 Urine WBC (Auto) 2 /HPF 05/09/20 10:08 Urine RBC (Auto) 1 /HPF 05/09/20 10:08 U Hyaline Cast (Auto) 28 /LPF 05/09/20 10:08 Urine Bacteria (Auto) TRACE /HPF 05/09/20 05:30 Squamous Epi Cells Auto <1 /HPF 05/09/20 10:08 Urine Mucus (Auto) MOD /LPF 05/09/20 10:08 Urine Ascorbic Acid NEGATIVE (NEGATIVE) 05/09/20 10:08 Time Trough Drawn 0502 05/13/20 05:02 Vancomycin Trough 11.5 ug/mL (5.0-20.0) 05/13/20 05:02 Serum Alcohol < 10 mg/dL (NONE DETECTED) 05/09/20 01:59 SARS-CoV-2 (PCR) NEGATIVE (NEGATIVE) 05/09/20 12:29 Slides for Path Review PATHOLOGIST REVIEWED 05/09/20 11:55 05/09/20 05/09/20 05/09/20 01:59 01:59 06:40 CK-MB (CK-2) 1.83 Troponin I 0.018 0.143 NT-Pro-B Natriuret Pep 1230 H 05/09/20 05/09/20 05/09/20 10:43 11:55 14:10 CK-MB (CK-2) Cancelled 13.30 H 20.20 H Troponin I Cancelled 0.118 0.108 NT-Pro-B Natriuret Pep 05/09/20 05/10/20 18:25 05:41 CK-MB (CK-2) 20.50 H Troponin I 0.058 NT-Pro-B Natriuret Pep Impressions: Chest X-Ray 05/09/20 02:02 IMPRESSION: 1. No acute pulmonary findings. Chest X-Ray 05/12/20 07:00 IMPRESSION: No interval change in the chest. Cardiomegaly. Mild central vascular prominence. Plan Time Spent: Less than 30 Minutes Stroke Is this a Stroke Patient?: No Acute Heart Failure - Is this a Heart Failure Patient?: Yes Documentation of LVEF assessment?: Yes LVEF: LVEF Greater Than 40% Anticoagulant Therapy: N/A Follow-up Appointment scheduled within 7 days?: Yes
[2020-05-15 12:29] VITALS: BP 138/73
== END 2020-05-15 13:03 | disposition home health service (06) | DRG 193 ==
LOC: ER 01:15 → EH 06:45 → 3W 09:05
PROVIDERS: ADMIT Emergency Medicine; ATTEND Internal Medicine
PROC: 5A09557 Assistance with Respiratory Ventilation, Greater than 96 Consecutive Hours, Continuous Positive Airway Pressure (ICD-10-PCS; principal; 2020-05-09)
DX: J18.9 Pneumonia, unspecified organism (principal); J96.01 Acute respiratory failure with hypoxia; G93.41 Metabolic encephalopathy; M62.82 Rhabdomyolysis; I42.9 Cardiomyopathy, unspecified; E66.9 Obesity, unspecified; I44.7 Left bundle-branch block, unspecified; J44.9 Chronic obstructive pulmonary disease, unspecified; F10.20 Alcohol dependence, uncomplicated; F17.210 Nicotine dependence, cigarettes, uncomplicated; I10 Essential (primary) hypertension; F10.21 Alcohol dependence, in remission; R79.89 Other specified abnormal findings of blood chemistry; Z86.12 Personal history of poliomyelitis; Z89.512 Acquired absence of left leg below knee; Z79.82 Long term (current) use of aspirin; Z78.1 Physical restraint status; Z20.828 Contact with and (suspected) exposure to other viral communicable diseases; Z79.899 Other long term (current) drug therapy
CPT/HCPCS: 36415; 36600; 51702; 71045; 80048; 80053; 80061; 80202; 80307; 81001; 82550; 82553; 82565; 82803; 82962; 83735; 83880; 84443; 84481; 84484; 85025; 85027; 85610; 85730; 87040; 87070; 87077; 87086; 87635; 93005; 93010; 93306; 94640; 94660; 96374; 96375; 96376; 99285; C9803; J0692; J1160; J1630; J1644; J1650; J1940; J2060; J2270; J2930; J3360; J3370; J3490; J7030; J7040; J7060; J7620

== ENCOUNTER 2020-05-25 11:25 | Emergency (ER) | payer MEDICARE ==
--- NOTE | 2020-05-25 11:40 | ER Document Report ---
ED Medical Screen (RME) - General Chief Complaint: Weakness Stated Complaint: WEAKNESS/SHAKING Time Seen by Provider: 05/25/20 11:27 Primary Care Provider: LISANDRO LILLY PA-C [Primary Care Provider] - Follow up as needed TRAVEL OUTSIDE OF THE [place] IN LAST 30 DAYS: No - HPI Notes: 05/25/20 11:42 74-year-old male with a history of CHF, metabolic encephalopathy, COPD presents emergency room with complaints of sudden onset shortness of breath that started at 3 AM this morning. Patient is also reporting that he is having some tremors, nausea and chills. Patient was recently admitted to the hospital on May 09 for CHF exacerbation and was discharged on May 15. Patient is denying any chest pain, fever, diarrhea, abdominal pain. He reports that his shortness of breath is becoming progressively worse. He is here with his and states that he would like his present that sometimes he gets can get confused. I have greeted and performed a rapid initial assessment of this patient. A comprehensive ED assessment and evaluation of the patient, analysis of test results and completion of the medical decision making process will be conducted by additional ED providers. PHYSICAL EXAMINATION: GENERAL: Chronically ill, well-nourished and in no acute distress. HEAD: Atraumatic, normocephalic. Populated opening. NECK: Normal range of motion CV: s1, s2 regular LUNGS: Diminished breath sounds in upper lobes - Related Data Allergies/Adverse Reactions: No Known Allergies Allergy (Unverified 05/18/14 10:23) Past Medical History - Past Medical History Cardiac Medical History: Denies: Hx Coronary Artery Disease, Hx Hypertension Endocrine Medical History: Denies: Hx Diabetes Mellitus Type 1, Hx Diabetes Mellitus Type 2 Renal/ Medical History: Denies: Hx Peritoneal Dialysis GI Medical History: Denies: Hx Hepatitis Psychiatric Medical History: Denies: Hx Depression Infectious Medical History: Denies: Hx Hepatitis Past Surgical History: Reports: Hx 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, Other - Facial surgery r/t polio - Immunizations Hx Diphtheria, Pertussis, Tetanus Vaccination: No Physical Exam - Vital signs Vitals: Temp Pulse Resp BP Pulse Ox 98.8 F 71 20 173/58 H 96 05/25/20 11:32 05/25/20 11:32 05/25/20 11:32 05/25/20 11:32 05/25/20 11:32 Course - Vital Signs Vital signs: Temp Pulse Resp BP Pulse Ox 98.8 F 71 20 173/58 H 96 05/25/20 11:32 05/25/20 11:32 05/25/20 11:32 05/25/20 11:32 05/25/20 11:32 Doctor's Discharge - Discharge Referrals: LISANDRO LILLY PA-C [Primary Care Provider] - Follow up as needed
[2020-05-25 12:29] LABS: APPEARANCE,URINE CLEAR; BILIRUBIN,URINE NEGATIVE (NEGATIVE); COLOR,URINE STRAW; GLUCOSE, URINE NEGATIVE (NEGATIVE); KETONES,URINE NEGATIVE (NEGATIVE); LEUKOCYTE ESTERASE,URINE TRACE (NEGATIVE); NITRITE,URINE NEGATIVE (NEGATIVE); PROTEIN,URINE NEGATIVE (NEGATIVE); URINE SPECIFIC GRAVITY 1.005; UROBILINOGEN,URINE NEGATIVE mg/dL (<2.0)
[2020-05-25 12:43] LABS: ALBUMIN 3.8 g/dL (3.5-5.0); ALKALINE PHOSPHATASE 73 U/L (38-126); ANION GAP 5 (5-19); ASPARTATE AMINO TRANSFERASE 18 U/L (17-59); BILIRUBIN,TOTAL 0.5 mg/dL (0.2-1.3); BLOOD UREA NITROGEN 11 mg/dL (7-20); CALCIUM 9.2 mg/dL (8.4-10.2); CARBON DIOXIDE 32 mmol/L (22-30); CHLORIDE 101 mmol/L (98-107); GLUCOSE 106 mg/dL (75-110); HEMATOCRIT 38.3 % (37.9-51.0); HEMOGLOBIN 12.9 g/dL (13.5-17.0); MEAN CORPUSCULAR HEMOGLOBIN 34.7 pg (27.0-33.4); MEAN CORPUSCULAR HGB CONC 33.8 g/dL (32.0-36.0); MEAN CORPUSCULAR VOLUME 103 fl (80-97); PLATELET COUNT 298 10^3/uL (150-450); POTASSIUM 5.1 mmol/L (3.6-5.0); RED BLOOD COUNT 3.72 10^6/uL (4.35-5.55); TOTAL PROTEIN 8.4 g/dL (6.3-8.2); WHITE BLOOD COUNT 8.7 10^3/uL (4.0-10.5)
[2020-05-25 12:54] LABS: NT PRO BNP 813 pg/mL (<125); TROPONIN I < 0.012 ng/mL
[2020-05-25 12:58] LABS: ABSOLUTE LYMPHOCYTES# (MANUAL) 1.4 10^3/uL (0.5-4.7); BASOPHILS % (MANUAL) 0 % (0-2); EOSINOPHILS % (MANUAL) 1 % (0-6); LYMPHOCYTES % (MANUAL) 16 % (13-45); MONOCYTES % (MANUAL) 12 % (3-13); SEGMENTED NEUTROPHILS % (MAN) 71 % (42-78); TOTAL CELLS COUNTED 100
[2020-05-25 13:00] LABS: ANISOCYTOSIS 1+; PLATELET COMMENT ADEQUATE
[2020-05-25 13:01] LABS: OVALOCYTES SLIGHT; POIKILOCYTOSIS SLIGHT
--- NOTE | 2020-05-25 13:45 | RADIOLOGY REPORT (SQ) ---
EXAM DESCRIPTION: CHEST SINGLE VIEW IMAGES COMPLETED DATE/TIME: 05/25/2020 1:34 pm REASON FOR STUDY: sob COMPARISON: 05/12/2020 EXAM PARAMETERS: NUMBER OF VIEWS: One view. TECHNIQUE: Single frontal radiographic view of the chest acquired. RADIATION DOSE: NA LIMITATIONS: None. FINDINGS: LUNGS AND PLEURA: No opacities, masses or pneumothorax. No pleural effusion. MEDIASTINUM AND HILAR STRUCTURES: No masses. Contour normal. HEART AND VASCULAR STRUCTURES: Heart remains enlarged. No failure. BONES: No acute findings. HARDWARE: None in the chest. OTHER: No other significant finding. IMPRESSION: Stable cardiomegaly. No acute findings. TECHNICAL DOCUMENTATION: JOB ID: [id number] 2010 [employer]- All Rights Reserved Reading location - IP/workstation name: [email or web address]
--- NOTE | 2020-05-25 14:17 | EKG REPORT ---
SEVERITY:- ABNORMAL ECG - SINUS RHYTHM LEFT BUNDLE BRANCH BLOCK : Confirmed by: Dennis Skinner MD 25-May-2020 14:16:02
[2020-05-25 14:25] VITALS: BP 127/52
--- NOTE | 2020-05-25 14:49 | ER Document Report ---
ED Cardiac - General Chief Complaint: Shortness Of Breath Stated Complaint: WEAKNESS/SHAKING Time Seen by Provider: 05/25/20 11:27 Primary Care Provider: LISANDRO LILLY PA-C [Primary Care Provider] - Follow up as needed Mode of Arrival: Ambulatory Information source: Patient TRAVEL OUTSIDE OF THE [place] IN LAST 30 DAYS: No - HPI Notes: Patient presents stating that he felt he may be having a heart attack. He says he did not have any chest pain but he has been having shortness of breath. He states that shortness of breath started the middle the night and continued up until he arrived at the hospital. He states he has no more shortness of breath now and feels back to his normal state of health. He states he is unsure what made him feel better. Patient denies any pain of any kind. He denies any recent cough cold or congestion. No known covert virus exposures. No fevers. Patient states he is a current smoker. His cough however has not worsened. also states that he has been more forgetful lately and that he sleeps most of the day. Patient symptoms were apparently constant. They are apparently moderate to severe. He states they are worse when he exerted himself and better with rest. There was obviously no radiation of the symptoms. - Related Data Allergies/Adverse Reactions: No Known Allergies Allergy (Unverified 05/18/14 10:23) Past Medical History - General Information source: Patient - Social History Smoking Status: Current Every Day Smoker Frequency of alcohol use: None Drug Abuse: None Family History: None - That the patient's is aware of Patient has homicidal ideation: No - Past Medical History Cardiac Medical History: Reports: Hx Congestive Heart Failure Denies: Hx Coronary Artery Disease, Hx Hypertension Endocrine Medical History: Denies: Hx Diabetes Mellitus Type 1, Hx Diabetes Mellitus Type 2 Renal/ Medical History: Denies: Hx Peritoneal Dialysis GI Medical History: Denies: Hx Hepatitis Psychiatric Medical History: Denies: Hx Depression Infectious Medical History: Denies: Hx Hepatitis Past Surgical History: Reports: Hx 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, Other - Facial surgery r/t polio - Immunizations Hx Diphtheria, Pertussis, Tetanus Vaccination: No Review of Systems - Review of Systems Constitutional: denies: Chills, Fever Cardiovascular: denies: Chest pain, Palpitations Respiratory: Short of breath. denies: Cough -: Yes All other systems reviewed and negative Physical Exam - Vital signs Vitals: Temp Pulse Resp BP Pulse Ox 98.8 F 71 20 173/58 H 96 05/25/20 11:32 05/25/20 11:32 05/25/20 11:32 05/25/20 11:32 05/25/20 11:32 Interpretation: Normal - General General appearance: Appears well, Alert - HEENT Head: Normocephalic, Atraumatic Eyes: Normal Pupils: PERRL - Respiratory Respiratory status: No respiratory distress Chest status: Nontender Breath sounds: Decreased air movement Chest palpation: Normal - Cardiovascular Rhythm: Regular Heart sounds: Normal auscultation Murmur: No - Abdominal Inspection: Normal Distension: No distension Bowel sounds: Normal Tenderness: Nontender Organomegaly: No organomegaly - Back Back: Normal, Nontender - Extremities General upper extremity: Normal inspection, Nontender, Normal color, Normal ROM, Normal temperature General lower extremity: Normal inspection, Nontender, Normal color, Normal ROM, Normal temperature, Normal weight bearing. No: Michael's sign - Neurological Neuro grossly intact: Yes Cognition: Normal Speech: Normal Motor strength normal: LUE, RUE, LLE, RLE - Psychological Associated symptoms: Normal affect, Normal mood - Skin Skin Temperature: Warm Skin Moisture: Dry Skin Color: Normal Course - Re-evaluation Re-evalutation: 05/25/20 14:47 Patient presents complaining of shortness of breath that is now resolved. Patient has no evidence of any type of respiratory distress at the current time. His vitals are normal. His respirations are unlabored. He has no signs of any type of infectious process. He has no evidence of ischemia or congestive heart failure at this time. His potassium is mildly elevated at 5.1. I will give him 1 dose of Kayexalate and instruct him that he needs to have his potassium rechecked this week. His creatinine is normal. His is concerned about his excessive sleeping. I discussed sleep apnea with her and the need for him to be evaluated for a CPAP machine. His is also concerned about his increasing confusion over the last several weeks. I have instructed his that he will need a further evaluation as an outpatient by primary care. - Vital Signs Vital signs: Temp Pulse Resp BP Pulse Ox 97.9 F 69 18 127/52 H 97 05/25/20 14:23 05/25/20 14:23 05/25/20 14:23 05/25/20 14:23 05/25/20 14:23 - Laboratory Result Diagrams: 05/25/20 11:55 05/25/20 11:55 Laboratory results interpreted by me: 05/25/20 05/25/20 05/25/20 11:55 11:55 11:55 RBC 3.72 L Hgb 12.9 L MCV 103 H MCH 34.7 H RDW 18.0 H Potassium 5.1 H Carbon Dioxide 32 H NT-Pro-B Natriuret Pep 813 H Total Protein 8.4 H Ur Leukocyte Esterase 05/25/20 12:05 RBC Hgb MCV MCH RDW Potassium Carbon Dioxide NT-Pro-B Natriuret Pep Total Protein Ur Leukocyte Esterase TRACE H - Diagnostic Test Radiology reviewed: Image reviewed, Reports reviewed - EKG Interpretation by Me EKG shows normal: Sinus rhythm Rate: Normal Rhythm: NSR - 67 [place]/QRS: LBBB Discharge - Discharge Clinical Impression: Hyperkalemia, Left bundle branch block Dyspnea Qualifiers: Dyspnea type: unspecified Qualified Code(s): R06.00 - Dyspnea, unspecified Condition: Stable Disposition: HOME, SELF-CARE Instructions: Dyspnea, Nonspecific ([facility]) Additional Instructions: Please call your primary care provider as soon as possible to arrange follow-up Please discuss evaluation of confusion and possible sleep apnea with your primary care provider. Please have your potassium level rechecked in the next 2 to 3 days. If you are unable to see a primary care doctor to have it rechecked please return to the emergency department to have it reevaluated. Referrals: LISANDRO LILLY PA-C [Primary Care Provider] - Follow up in 3-5 days
[2020-05-25] MEDS ORDERED: SODIUM POLYSTYRENE SULFONATE 15 GM/60 ML PO ONE (14:50)
== END 2020-05-25 15:03 | disposition home or self-care (01) ==
LOC: ER 11:25
DX: R06.02 Shortness of breath (principal); E87.5 Hyperkalemia; I44.7 Left bundle-branch block, unspecified; I51.7 Cardiomegaly; R41.0 Disorientation, unspecified; F17.200 Nicotine dependence, unspecified, uncomplicated
CPT/HCPCS: 93005; 99285; 36415; 82962; 85025; 80053; 81001; 84484; 83880; 71045; 93010; A9270

== ENCOUNTER → 2020-06-08 | Outpatient (CLI) | payer MEDICARE ==
--- NOTE | 2020-06-08 12:11 | RADIOLOGY REPORT (SQ) ---
EXAM DESCRIPTION: CHEST 2 VIEWS IMAGES COMPLETED DATE/TIME: 06/08/2020 11:19 am REASON FOR STUDY: PNEUMONIA (J18.9) COMPARISON: None. EXAM PARAMETERS: NUMBER OF VIEWS: two views TECHNIQUE: Digital Frontal and Lateral radiographic views of the chest acquired. RADIATION DOSE: NA LIMITATIONS: none FINDINGS: LUNGS AND PLEURA: Cannot exclude limited opacification the right base. MEDIASTINUM AND HILAR STRUCTURES: No masses or contour abnormalities. HEART AND VASCULAR STRUCTURES: Cardiomegaly. No pulmonary edema. BONES: No acute findings. HARDWARE: None in the chest. OTHER: No other significant finding. IMPRESSION: Cannot exclude a very limited right lower lobe pneumonia. Cardiomegaly without pulmonar y edema. TECHNICAL DOCUMENTATION: JOB ID: [id number] 2010 [employer]- All Rights Reserved Reading location - IP/workstation name: [email or web address]
== END ==
LOC: RAD 10:53
PROVIDERS: ATTEND Nurse Practitioner Family
DX: J18.9 Pneumonia, unspecified organism (principal)
CPT/HCPCS: 71046

== ENCOUNTER 2020-10-14 11:17 | Emergency (ER) | payer MEDICARE, OTHER ==
[2020-10-14] MEDS ORDERED: DILTIAZEM HCL INJ 25 MG/5 ML VIAL IV ONE (11:55)
--- NOTE | 2020-10-14 11:55 | ER Document Report ---
ED Cardiac - General Chief Complaint: Chest Pain Stated Complaint: CHEST PAIN Time Seen by Provider: 10/14/20 11:42 Primary Care Provider: CYNDEE RIVERO NP [Primary Care Provider] - Follow up as needed Mode of Arrival: Ambulatory Information source: Patient Cannot obtain history due to: Other - Patient relies on his to answer many of my questions. TRAVEL OUTSIDE OF THE [place] IN LAST 30 DAYS: No - HPI Notes: This patient is a 75-year-old male who presents complaining of chest pain shortness of breath is been going on since last night. It is not related to exertion and is not relieved by rest. He has no palpitations. He has no nausea. He has chronic dyspnea and chronic congestive heart failure. He says he is never had anybody tell him that he has ever had atrial fibrillation or any other sort of arrhythmia. He feels a bit weak. He says he has been taking his medications as prescribed. He says he has maintained sobriety completely for the past 2 years. He denies any travel outside the area or exposure to infectious illness. He has no other acute symptomatology. - Related Data Allergies/Adverse Reactions: No Known Allergies Allergy (Unverified 05/18/14 10:23) Past Medical History - Social History Smoking Status: Smoker,Current Status Unk Family History: None - That the patient's is aware of - Medical History Notes: Patient has a history of congestive heart failure. He has been told that he needs a pacemaker/ICD but says he cannot afford the cost of getting one placed. - Past Medical History Cardiac Medical History: Reports: Hx Congestive Heart Failure Denies: Hx Coronary Artery Disease, Hx Hypertension Endocrine Medical History: Denies: Hx Diabetes Mellitus Type 1, Hx Diabetes Mellitus Type 2 Renal/ Medical History: Denies: Hx Peritoneal Dialysis GI Medical History: Denies: Hx Hepatitis Psychiatric Medical History: Denies: Hx Depression Infectious Medical History: Denies: Hx Hepatitis Past Surgical History: Reports: Hx 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, Other - Facial surgery r/t polio - Immunizations Hx Diphtheria, Pertussis, Tetanus Vaccination: No Review of Systems - Review of Systems Notes: All other systems are reviewed are negative except as noted in the present illness. Physical Exam - Vital signs Vitals: Resp Pulse Ox 29 H 99 10/14/20 11:39 10/14/20 11:39 - Notes Notes: General: This is a well-developed somewhat chronically ill-appearing male who appears somewhat older than his stated age in no acute distress. Vital signs and nursing documentation are reviewed. Neck: Supple, trachea midline no adenopathy. Chest: Fair air entry bilaterally few bibasilar rales no rhonchi or wheezes. Heart: Tachycardic with an irregularly irregular rate and rhythm without obvious murmurs. The patient has somewhat distant heart tones given his body habitus. Abdomen: Soft nontender obese no masses or organomegaly. Extremities: Patient has a prosthetic left lower leg. Right leg is free of edema. Skin: Warm moist good turgor no rashes. Neuro: Alert and oriented x3. No focal neurologic deficits. Course - Re-evaluation Re-evalutation: 10/14/20 19:07 Patient was found to have an old left bundle branch block and was in atrial fibrillation with rapid ventricular response. Simply having him take some deep breaths while he was doing his physical exam lowered his pulse from 135 down into the 90s. He was given a single IV dose of diltiazem 10 mg. This slowed hi s heart rate very nicely and he quickly spontaneously converted back into normal sinus rhythm. He was then given diltiazem 120 mg extended release orally. He said that both the IV and the oral diltiazem made him feel quite dizzy. Repeat EKG still showed left bundle branch block morphology but showed a normal sinus rhythm with a rate in the 70s. Patient's chest pain resolved completely. His repeat troponin was still within the normal range. The rest of his labs were unremarkable. We discussed anticoagulation. He does not have any resources to allow him to pay for Aggios. After exploring various options the patient decided he was willing to go on warfarin. I started him on 5 mg once a day. I explained to him that he will need an INR at his doctor's office early next week and will need close follow-up. He understands this. 10/14/20 20:12 - Vital Signs Vital signs: Temp Pulse Resp BP Pulse Ox 16 116/99 H 97 10/14/20 15:01 10/14/20 15:01 10/14/20 15:01 - Laboratory Result Diagrams: 10/14/20 11:47 10/14/20 11:47 Laboratory results interpreted by me: 10/14/20 10/14/20 10/14/20 11:47 11:47 11:47 RBC 4.13 L MCV 102 H MCH 33.6 H RDW 17.0 H [place] % (Auto) 15.3 H Sodium 136.9 L Glucose 160 H AST 16 L NT-Pro-B Natriuret Pep 1080 H Total Protein 9.4 H - Diagnostic Test Radiology reviewed: Image reviewed, Reports reviewed Radiology results interpreted by me: 10/14/20 19:07 Chest X-Ray 10/14/20 11:34 IMPRESSION: Cardiomegaly without pulmonary edema. - EKG Interpretation by Me Rate: Tachycardia Rhythm: A.Fib [place]/QRS: LBBB Discharge - Discharge Clinical Impression: Paroxysmal atrial fibrillation with rapid ventricular response Condition: Good Disposition: HOME, SELF-CARE Instructions: Atrial Fibrillation ([facility]), Coumadin (warfarin) ([facility]) Additional Instructions: Continue taking your metoprolol 25 mg twice a day as prescribed. Contact Dr. Skinner's office for a follow-up appointment for early next week. Te ll them you were in the emergency room and had an episode of atrial fibrillation. A prescription for warfarin is being sent to your [facility] pharmacy per your request. Please take 1 tablet at bedtime every night. It is very important that you follow-up with both the kitchen worker and with your primary care provider next week. You will need blood tests at least once a week to monitor the level of warfarin in your bloodstream. Return to the emergency department if any concerning symptoms develop. Prescriptions: Warfarin Sodium [Jantoven 4 mg Tablet] 4 mg PO QHS #30 tablet Referrals: CYNDEE RIVERO NP [Primary Care Provider] - Follow up as needed
[2020-10-14 12:01] LABS: ABSOLUTE LYMPHOCYTES (AUTO) 1.4 10^3/uL (0.5-4.7); ABSOLUTE MONOCYTES (AUTO) 1.4 10^3/uL (0.1-1.4); ABSOLUTE NEUT (AUTO) 6.3 10^3/uL (1.7-8.2); BASOPHILS % (AUTO) 0.2 % (0-2); EOSINOPHILS % (AUTO) 0.4 % (0-6); HEMATOCRIT 42.2 % (37.9-51.0); HEMOGLOBIN 13.9 g/dL (13.5-17.0); LYMPHOCYTES % (AUTO) 15.7 % (13-45); MEAN CORPUSCULAR HEMOGLOBIN 33.6 pg (27.0-33.4); MEAN CORPUSCULAR HGB CONC 32.9 g/dL (32.0-36.0); MEAN CORPUSCULAR VOLUME 102 fl (80-97); MONOCYTES % (AUTO) 15.3 % (3-13); PLATELET COUNT 227 10^3/uL (150-450); RED BLOOD COUNT 4.13 10^6/uL (4.35-5.55); SEGMENTED NEUTROPHILS % (AUTO) 68.4 % (42-78); TOTAL CELLS COUNTED % (AUTO) 100 %; WHITE BLOOD COUNT 9.2 10^3/uL (4.0-10.5)
--- NOTE | 2020-10-14 12:19 | RADIOLOGY REPORT (SQ) ---
EXAM DESCRIPTION: CHEST SINGLE VIEW IMAGES COMPLETED DATE/TIME: 10/14/2020 11:59 am REASON FOR STUDY: cp COMPARISON: 06/15/2020 EXAM PARAMETERS: NUMBER OF VIEWS: One view. TECHNIQUE: Single frontal radiographic view of the chest acquired. RADIATION DOSE: NA LIMITATIONS: None. FINDINGS: LUNGS AND PLEURA: No opacities, masses or pneumothorax. No pleural effusion. MEDIASTINUM AND HILAR STRUCTURES: No masses. Contour normal. HEART AND VASCULAR STRUCTURES: Cardiomegaly. No ralph pulmonary edema. BONES: No acute findings. HARDWARE: None in the chest. OTHER: No other significant finding. IMPRESSION: Cardiomegaly without pulmonary edema. TECHNICAL DOCUMENTATION: JOB ID: [id number] 2010 [employer]- All Rights Reserved Reading location - IP/workstation name: [email or web address]
[2020-10-14 12:26] LABS: ALKALINE PHOSPHATASE 76 U/L (38-126); ANION GAP 7 (5-19); ASPARTATE AMINO TRANSFERASE 16 U/L (17-59); BILIRUBIN,DIRECT 0.3 mg/dL (0.0-0.4); BILIRUBIN,TOTAL 0.5 mg/dL (0.2-1.3); BLOOD UREA NITROGEN 15 mg/dL (7-20); CALCIUM 9.3 mg/dL (8.4-10.2); CARBON DIOXIDE 27 mmol/L (22-30); CHLORIDE 103 mmol/L (98-107); GLUCOSE 160 mg/dL (75-110); POTASSIUM 4.7 mmol/L (3.6-5.0); TOTAL PROTEIN 9.4 g/dL (6.3-8.2)
[2020-10-14] MEDS ORDERED: DILTIAZEM HCL 120 MG CAP.SR.24H PO ONE (12:27)
[2020-10-14 15:35] VITALS: BP 116/99
--- NOTE | 2020-10-14 17:43 | EKG REPORT ---
SEVERITY:- ABNORMAL ECG - ATRIAL FIBRILLATION NONSPECIFIC IVCD WITH LAD LVH WITH SECONDARY REPOLARIZATION ABNORMALITY ANTERIOR INJURY, EARLY ACUTE INFARCT : Confirmed by: Dennis Skinner MD 14-Oct-2020 17:42:58
--- NOTE | 2020-10-14 17:43 | EKG REPORT ---
SEVERITY:- ABNORMAL ECG - SINUS RHYTHM PROBABLE LEFT ATRIAL ABNORMALITY LEFT BUNDLE BRANCH BLOCK : Confirmed by: Dennis Skinner MD 14-Oct-2020 17:42:24
== END 2020-10-14 15:36 | disposition home or self-care (01) ==
LOC: ER 11:17
DX: I48.0 Paroxysmal atrial fibrillation (principal); I44.7 Left bundle-branch block, unspecified; R07.9 Chest pain, unspecified; R06.02 Shortness of breath; I50.9 Heart failure, unspecified; R00.0 Tachycardia, unspecified
CPT/HCPCS: 93005; 99285; 36415; 83735; 85025; 80053; 84484; 83880; 71045; 93010; A9270; J3490

== ENCOUNTER 2020-11-19 09:05 | Day surgery (SDC) | payer MEDICARE, OTHER ==
[2020-11-19 10:11] LABS: HEMATOCRIT 39.1 % (37.9-51.0); MEAN CORPUSCULAR HEMOGLOBIN 33.6 pg (27.0-33.4); MEAN CORPUSCULAR HGB CONC 33.2 g/dL (32.0-36.0); MEAN CORPUSCULAR VOLUME 101 fl (80-97); PLATELET COUNT 211 10^3/uL (150-450); RED BLOOD COUNT 3.86 10^6/uL (4.35-5.55); RED CELL DISTRIBUTION WIDTH 17.6 % (11.5-14.0); WHITE BLOOD COUNT 9.6 10^3/uL (4.0-10.5)
[2020-11-19 10:18] LABS: INTERNATIONAL RATION (INR) 1.07; PROTHROMBIN TIME 14.1 SEC (11.4-15.4)
[2020-11-19 10:19] LABS: PARTIAL THROMBOPLASTIN TIME 33.3 SEC (23.5-35.8)
[2020-11-19 10:37] LABS: BLOOD UREA NITROGEN 16 mg/dL (7-20)
[2020-11-19] MEDS ORDERED: MIDAZOLAM 2 MG/2 ML INJ ONE (11:07)
[2020-11-19] MEDS ORDERED: FENTANYL CITRATE INJ/PF 100 MCG/2 ML AMPUL ONE (11:07)
--- NOTE | 2020-11-19 12:16 | RADIOLOGY REPORT (SQ) ---
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 TECHNIQUE: CT guided biopsy of the right posterior iliac crest performed with conscious sedation. CT Fluoroscopy Time: 14.[address] scanners at this facility use dose modulation, iterative reconstruction, and/or weight based d osing when appropriate to reduce radiation dose to as low as reasonably achievable (ALARA). [facility]: Dose Right [facility]: CareDose [facility]: Dose Right [facility]: Teradose 4D [facility]: [employer] RADIATION DOSE: mGy. FINDINGS: After obtaining informed consent and explaining the risks and benefits of conscious sedati on,the patient agreed to the procedure. Prior to the procedure, a time out was performed to verify th e patient's identity and planned procedure. IV conscious sedation was administered and physician direction by the registered nurse using 2 millig ronak of Versed and face to micrograms of fentanyl. Physiologic monitoring was provided before, during , and after sedation. The total sedation time was 30 minutes. Documentation face to face time, the performing proceduralist, spent monitoring the patient: [address] scanning was performed to localize the percutaneous site for the biopsy approach. After sterile skin prep and local lidocaine for skin and deep tissue anesthesia, a coaxial biopsy nee dle was used to obtain a bone marrow aspirate, and a bone marrow core of tissue. The biopsy tissue wa s received by Dr. Anderson's nurse to be sent out for evaluation. There were no immediate complication s. Pathology is pending at the time of dictation. IMPRESSION: CT GUIDED ASPIRATE AND CORE BIOPSY OF THE RIGHT POSTERIOR ILIAC CREST BONE MARROW PERFOR MED WITHOUT IMMEDIATE COMPLICATION. PATHOLOGY PENDING. IV CONSCIOUS SEDATION WITHOUT COMPLICATION. COMMENT: Quality ID [id number]: Final reports for procedures using fluoroscopy that document radiation exp osure indices, or exposure time and number of fluorographic images (if radiation exposure indices are not available) Patient medication list reviewed: Yes- Quality ID# [id number]:Eligible professional attests to documenting i n the medical record they obtained, updated, or reviewed the patient's current medications.. TECHNICAL DOCUMENTATION: JOB ID: [id number] Quality ID# [id number]: Final reports with documentation of one or more dose reduction techniques (e.g., Aut omated exposure control, adjustment of the mA and/or kV according to patient size, use of iterative r econstruction technique) 2010 [employer]- All Rights Reserved Reading location - IP/workstation name: [id number]
[2020-11-19 16:54] VITALS: BP 100/59
== END 2020-11-19 14:25 | disposition home or self-care (01) ==
LOC: RAD 09:05
PROVIDERS: ATTEND Internal Medicine
DX: C88.0 Waldenstrom macroglobulinemia (principal); D64.9 Anemia, unspecified
CPT/HCPCS: 36415; 84520; 82565; 85027; 85610; 85730; 38221; 77012; J2250; J3010

== ENCOUNTER 2020-12-04 13:29 | Emergency (ER) | payer MEDICARE, OTHER ==
--- NOTE | 2020-12-04 13:59 | ER Document Report ---
ED Medical Screen (RME) - General Chief Complaint: Shortness Of Breath Stated Complaint: DIZZYNESS/SHAKING/SHORTNESS OF BREATH Time Seen by Provider: 12/04/20 13:38 Primary Care Provider: CYNDEE RIVERO NP [Primary Care Provider] - Follow up as needed Notes: 75-year-old male with a history of COPD PE, current everyday smoker with a pack a day smoking presents emergency department with shortness of breath. His shor tness of breath started shortly after taking dexamethasone at 10:00 this morning. Patient was recently diagnosed with Walderstrom's macroglobulinemia. Exam: Dimished breath sounds noted throughout all lung valderrama. I have greeted and performed a rapid initial assessment of this patient. A comprehensive ED assessment and evaluation of the patient, analysis of test results and completion of medical decision making process will be conducted by an additional ED providers. TRAVEL OUTSIDE OF THE [place] IN LAST 30 DAYS: No - Related Data Allergies/Adverse Reactions: No Known Allergies Allergy (Verified 11/19/20 10:02) Past Medical History - Social History Frequency of alcohol use: None Drug Abuse: None - Past Medical History Cardiac Medical History: Reports: Hx Atrial Fibrillation, Hx Congestive Heart Failure, Hx Heart Attack - mild, Hx Hypertension Denies: Hx Coronary Artery Disease - chf per Pulmonary Medical History: Reports: Hx COPD Denies: Hx Asthma, Hx Bronchitis, Hx Pneumonia Neurological Medical History: Denies: Hx Cerebrovascular Accident, Hx Seizures Endocrine Medical History: Denies: Hx Diabetes Mellitus Type 1, Hx Diabetes Mellitus Type 2 Renal/ Medical History: Denies: Hx Peritoneal Dialysis GI Medical History: Denies: Hx Hepatitis Musculoskeltal Medical History: Denies Hx Arthritis Psychiatric Medical History: Denies: Hx Depression Infectious Medical History: Denies: Hx Hepatitis Past Surgical History: Reports: Hx 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, Other - Facial surgery r/t polio - Immunizations Hx Diphtheria, Pertussis, Tetanus Vaccination: No Physical Exam - Vital signs Vitals: Temp Pulse Resp BP Pulse Ox 97.5 F 88 24 H 180/77 H 99 12/04/20 13:38 12/04/20 13:38 12/04/20 13:38 12/04/20 13:38 12/04/20 13:38 Course - Vital Signs Vital signs: Temp Pulse Resp BP Pulse Ox 97.5 F 88 24 H 180/77 H 99 01/23/21 13:38 12/04/20 13:38 12/04/20 13:38 12/04/20 13:38 12/04/20 13:38 Doctor's Discharge - Discharge Referrals: CYNDEE RIVERO, LOGISTICS SOLUTION MANAGER [Primary Care Provider] - Follow up as needed
--- NOTE | 2020-12-04 14:29 | RADIOLOGY REPORT (SQ) ---
EXAM DESCRIPTION: CHEST SINGLE VIEW IMAGES COMPLETED DATE/TIME: 12/04/2020 1:17 pm REASON FOR STUDY: shortness of breath COMPARISON: 10/14/2020 EXAM PARAMETERS: NUMBER OF VIEWS: One view. TECHNIQUE: Single frontal radiographic view of the chest acquired. RADIATION DOSE: NA LIMITATIONS: None. FINDINGS: LUNGS AND PLEURA: Lungs are hyperinflated. Diffuse increased interstitial prominence. No pleural effusion. No pneumothorax. MEDIASTINUM AND HILAR STRUCTURES: No masses. Contour normal. HEART AND VASCULAR STRUCTURES: Moderate cardiomegaly. Mild pulmonary vascular congestion. BONES: No acute findings. HARDWARE: None in the chest. OTHER: No other significant finding. IMPRESSION: Moderate cardiomegaly with mild pulmonary vascular congestion. No focal consolidation o r pleural effusion. TECHNICAL DOCUMENTATION: JOB ID: [id number] 2010 [employer]- All Rights Reserved Reading location - IP/workstation name: [id number]
[2020-12-04 15:08] LABS: ABSOLUTE BASOPHILS # (AUTO) 0.1 10^3/uL (0.0-0.2); ABSOLUTE LYMPHOCYTES (AUTO) 0.8 10^3/uL (0.5-4.7); ABSOLUTE MONOCYTES (AUTO) 0.2 10^3/uL (0.1-1.4); ABSOLUTE NEUT (AUTO) 8.6 10^3/uL (1.7-8.2); BASOPHILS % (AUTO) 0.8 % (0-2); HEMATOCRIT 40.8 % (37.9-51.0); HEMOGLOBIN 13.5 g/dL (13.5-17.0); MEAN CORPUSCULAR HEMOGLOBIN 33.4 pg (27.0-33.4); MEAN CORPUSCULAR HGB CONC 33.2 g/dL (32.0-36.0); MEAN CORPUSCULAR VOLUME 101 fl (80-97); MONOCYTES % (AUTO) 1.7 % (3-13); PLATELET COUNT 214 10^3/uL (150-450); RED BLOOD COUNT 4.05 10^6/uL (4.35-5.55); RED CELL DISTRIBUTION WIDTH 17.4 % (11.5-14.0); SEGMENTED NEUTROPHILS % (AUTO) 89.5 % (42-78); TOTAL CELLS COUNTED % (AUTO) 100 %; WHITE BLOOD COUNT 9.6 10^3/uL (4.0-10.5)
[2020-12-04 15:11] LABS: APPEARANCE,URINE CLEAR; BILIRUBIN,URINE NEGATIVE (NEGATIVE); COLOR,URINE STRAW; GLUCOSE, URINE NEGATIVE (NEGATIVE); KETONES,URINE NEGATIVE (NEGATIVE); LEUKOCYTE ESTERASE,URINE NEGATIVE (NEGATIVE); NITRITE,URINE NEGATIVE (NEGATIVE); PROTEIN,URINE NEGATIVE (NEGATIVE); URINE SPECIFIC GRAVITY 1.004; UROBILINOGEN,URINE NEGATIVE mg/dL (<2.0)
[2020-12-04 15:27] LABS: ALBUMIN 4.2 g/dL (3.5-5.0); ALKALINE PHOSPHATASE 89 U/L (38-126); ANION GAP 7 (5-19); ASPARTATE AMINO TRANSFERASE 15 U/L (17-59); BILIRUBIN,DIRECT 0.3 mg/dL (0.0-0.4); BILIRUBIN,TOTAL 0.6 mg/dL (0.2-1.3); BLOOD UREA NITROGEN 19 mg/dL (7-20); CALCIUM 9.7 mg/dL (8.4-10.2); CARBON DIOXIDE 27 mmol/L (22-30); CHLORIDE 104 mmol/L (98-107); GLUCOSE 157 mg/dL (75-110); POTASSIUM 4.8 mmol/L (3.6-5.0); TOTAL PROTEIN 9.7 g/dL (6.3-8.2)
[2020-12-04 16:03] LABS: NT PRO BNP 1240 pg/mL (<125); TROPONIN I < 0.012 ng/mL
--- NOTE | 2020-12-04 16:30 | ER Document Report ---
ED General - General Chief Complaint: Shortness Of Breath Stated Complaint: DIZZYNESS/SHAKING/SHORTNESS OF BREATH Time Seen by Provider: 12/04/20 13:38 Primary Care Provider: MARTIN FELTON MD [ACTIVE STAFF] - Follow up as needed CYNDEE RIVERO NP [Primary Care Provider] - Follow up in 3-5 days JONATHON SANDRA MD [ACTIVE PROVISIONAL STAFF] - Follow up in 3-5 days TRAVEL OUTSIDE OF THE [place] IN LAST 30 DAYS: No - HPI Notes: 75-year-old male with a history of hypertension, atrial fibrillation, CHF, left BKA and recently diagnosed with Waldenstrom macroglobulinemia presents to the emergency room today with shortness of breath this morning after taking dexamethasone around 10:00 which is provider prescribed to him for his Waldenstrom macroglobulinemia. Patient was recently diagnosed with atrial fibrillation and placed on anticoagulants. In triage labs and chest x-ray was initiated. his chest x-ray did show that he had moderate cardiomegaly with mild pulmonary vascular congestion, no consolidation or pulmonary effusion. Patient denies any pedal edema in his right lower extremity. Denies taking any diuretics. Patient denies any chest pain, nausea, vomiting, abdominal pain fever or chills. Patient is a pack-a-day smoker for over 55 years. Denies any fevers or chills - Related Data Allergies/Adverse Reactions: No Known Allergies Allergy (Verified 11/19/20 10:02) Past Medical History - General Information source: Patient - Social History Smoking Status: Current Every Day Smoker Frequency of alcohol use: None Drug Abuse: None Family History: None - That the patient's is aware of - Past Medical History Cardiac Medical History: Reports: Hx Atrial Fibrillation, Hx Congestive Heart Failure, Hx Heart Attack - mild, Hx Hypertension Denies: Hx Coronary Artery Disease - chf per Pulmonary Medical History: Reports: Hx COPD Denies: Hx Asthma, Hx Bronchitis, Hx Pneumonia Neurological Medical History: Denies: Hx Cerebrovascular Accident, Hx Seizures Endocrine Medical History: Denies: Hx Diabetes Mellitus Type 1, Hx Diabetes Mellitus Type 2 Renal/ Medical History: Denies: Hx Peritoneal Dialysis GI Medical History: Denies: Hx Hepatitis Musculoskeletal Medical History: Denies Hx Arthritis Psychiatric Medical History: Denies: Hx Depression Infectious Medical History: Denies: Hx Hepatitis Past Surgical History: Reports: Hx 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, Other - Facial surgery r/t polio - Immunizations Hx Diphtheria, Pertussis, Tetanus Vaccination: No Physical Exam - Vital signs Vitals: Temp Pulse Resp BP Pulse Ox 97.5 F 88 24 H 180/77 H 99 12/04/20 13:38 12/04/20 13:38 12/04/20 13:38 12/04/20 13:38 12/04/20 13:38 - Notes Notes: MEDICATIONS: I agree with the patient medications as charted by the RN. ALLERGIES: I agree with the allergies as charted by the RN. PAST MEDICAL HISTORY/PAST SURGICAL HISTORY: Reviewed and agree as charted by RN. SOCIAL HISTORY: Reviewed and agree as charted by RN. FAMILY HISTORY: No significant familial comorbid conditions directly related to patient complaint EXAM: Reviewed vital signs as charted by RN. PHYSICAL EXAMINATION:reviewed vital signs by RN GENERAL: Well-appearing, well-nourished and in no acute distress. HEAD: Atraumatic, normocephalic. EYES: Pupils equal round and reactive to light, extraocular movements intact, sclera anicteric, conjunctiva are normal. ENT: Nares patent, oropharynx clear without exudates. Moist mucous membranes. NECK: Normal range of motion, supple without lymphadenopathy LUNGS: Slightly diminished breath sounds in upper lobes, lower lobes clear to auscultation. No wheezes rales or rhonchi. HEART: Regular rate and rhythm without murmurs ABDOMEN: Soft, nontender, nondistended abdomen. No guarding, no rebound. No masses appreciated. Musculoskeletal: Normal range of motion, no pitting or edema. No cyanosis. Left BKA. No pedal edema on right lower extremity NEUROLOGICAL: Cranial nerves grossly intact. Normal speech, normal gait. Normal sensory, motor exams PSYCH: Normal mood, normal affect. SKIN: Warm, Dry, normal turgor, no rashes or lesions noted. Course - Re-evaluation Re-evalutation: 12/04/20 16:45 Afebrile, slightly hypertensive but in no distress. Patient states he was feeling well shortness of breath and having some dizziness after taking dexamethasone for his newly diagnosed Waldenstrom macroglobulinemia. CBC negative for leukocytosis, CMP negative for hepatic or renal dysfunction, potassium 4.8. BNP 1240, this is slightly elevated from a couple weeks ago when he was seen at 1080. Troponin less than 0.012. Chest x-ray does show moderate cardiomegaly with mild pulmonary vascular congestion. No consolidation or pleural effusion noted. Patient states he did not take his medication today. Due to vascular congestion with elevated BNP, I did speak with Dr. Heriberto Melchor, hospitalist to see if patient did need admission, he did advise against it since he is not requiring supplemental oxygen, his BNP is around his baseline with slight elevation and being that he is not on a diuretic advised to give him IVP 20 mg Lasix, with his potassium being stable and advised him to be discharged home with 20 mg of Lasix daily with follow-up with his already esta blished wood carver hand. Patient was agreeable with this plan of care and verbalized understanding of this plan of care. Patient states he is established with Dr. Orozco, local wood carver hand. I did explain to these instructions to his as well who also verbalized an understanding of this plan of care. After performing a Medical Screening Examination, I estimate there is LOW risk for RUPTURED ESOPHAGUS, PNEUMOTHORAX, PULMONARY EMBOLISM, ACUTE CORONARY SYNDROME, OR THORACIC AORTIC DISSECTION, thus I consider the discharge disposition reasonable. I have reevaluated this patient multiple times and no significant life threatening changes are noted. The patient and I have discussed the diagnos is and risks, and we agree with discharging home with close follow-up. We also discussed returning to the Emergency Department immediately if new or worsening symptoms occur. We have discussed the symptoms which are most concerning (e.g., bloody sputum, worsening pain or shortness of breath) that necessitate immediate return. 12/04/20 18:58 - Vital Signs Vital signs: Temp Pulse Resp BP Pulse Ox 97.5 F 89 20 137/70 H 93 12/04/20 13:38 12/04/20 17:43 12/04/20 17:43 12/04/20 17:43 12/04/20 17:43 - Laboratory Results Result Diagrams: 12/04/20 14:30 12/04/20 14:30 Laboratory Results Interpreted: 12/04/20 12/04/20 12/04/20 14:30 14:30 14:30 RBC 4.05 L MCV 101 H RDW 17.4 H Lymph % (Auto) 8.0 L [place] % (Auto) 1.7 L Absolute Neuts (auto) 8.6 H Seg Neutrophils % 89.5 H Glucose 157 H AST 15 L NT-Pro-B Natriuret Pep 1240 H Total Protein 9.7 H Critical Laboratory Results Reviewed: No Critical Results - Radiology Results Critical Radiology Results Reviewed: Yes Attending or Supervising Physician who Reviewed Radiology: Dr. Bowman - hospitalist - EKG Interpretation by Me EKG shows normal: Sinus rhythm Rate: Normal Additional EKG results interpreted by me: 12/04/20 19:01 EKG interpreted by ER supervising physician. Heart rate 88, no ST segment elevations, no STEMI. P axis 68, QRS axis -58, T axis 105 12/04/20 19:01 Discharge - Discharge Clinical Impression: COPD (chronic obstructive pulmonary disease), CHF (congestive heart failure), Cardiomyopathy Condition: Stable Disposition: HOME, SELF-CARE Instructions: Congestive Heart Failure ([facility]), Lasix Additional Instructions: I started you on a diuretic today called Lasix, this will help with your heart failure. You are going to be taking 20 mg once daily. You may notice that you pee more as this is a diuretic to help with your heart failure. It is important that you eat a banana today to keep your potassium elevated, as sometimes this can reduce your potassium level. It is important that you also follow-up with a wood carver hand within the next 3 to 4 days for reevaluation. You should follow-up with your primary care provider in the next week to have a recheck of your potas sium. Your potassium today was normal. please return to the emergency room if you experience any worsening shortness of breath, if you experience any chest pain, weakness, fever etc. return immediately for any new or worsening symptoms. Follow up with primary care provider, call tomorrow to make followup appointment. Prescriptions: Furosemide [Lasix] 20 mg PO DAILY #30 tablet Referrals: CYNDEE RIVERO NP [Primary Care Provider] - Follow up in 3-5 days JONATHON SANDRA MD [ACTIVE PROVISIONAL STAFF] - Follow up in 3-5 days MARTIN FELTON MD [ACTIVE STAFF] - Follow up as needed
[2020-12-04] MEDS ORDERED: FUROSEMIDE INJ/PF 20 MG/2 ML SDV IV ONE (16:37)
[2020-12-04 17:44] VITALS: BP 137/70
--- NOTE | 2020-12-04 22:25 | EKG REPORT ---
SEVERITY:- ABNORMAL ECG - SINUS RHYTHM LEFT BUNDLE BRANCH BLOCK : Confirmed by: Jacek Yadav MD 04-Dec-2020 22:24:32
--- OUTSIDE RECORDS SUMMARY | 2020-12-07 10:32 | XMS REPORT ---
:1945 Author Organization Pending sale to [facility] Address [facility] [address] [place] [address] Care Team Providers Name Role Phone Justin Sterling Attending Clinician Unavailable DO Han Stack Attending Clinician Unavailable DO Han Stack Attending Clinician Unavailable Allergies, Adverse Reactions, Alerts This patient has no known allergies or adverse reactions. Medications Ordered Filled Start Stop Current Ordering Indication Dosage Frequency Signature Comments Components Medication Medication Date Date Medication? Clinician (SIG) Name Name Albuterol Yes 1 Sulfate 11-30 00:00: 00 Dexamethaso 0 Yes 10 ne 11-30 00:00: 00 Valium 2020-0 Yes 1-07 00:00: 00 Gabapentin 2018- Yes Bharath 1 Q0.3333D Gabapentin 400 MG Oral 0-15 Sreekanth CARDENAS 400 MG Capsule 00:00: Oral 00 Capsule TAKE 1 CAPSULE 3 TIMES DAILY Quantity: 90 Refills: 5 Bharath Stack MD Start : 9Active Aspirin 81 2019-0 Yes 1 QD Aspirin 81 MG Oral 5-29 MG Oral Tablet 00:00: Tablet Delayed 00 Delayed Release Release TAKE 1 TABLET DAILY. 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, Pain, Problem Active phantom phantom limb limb Procedures Procedure Date / Time Performed Performing Clinician Narda gottlieb Amputation skin graft bone marrow biopsy Procedures not documented Results Test Description Test Time Test Comments Text Results Atomic Results Result Comments WBC 2020-11-30 14:16:00 Test Item Value Reference Range Comments WBC (test code = WBC) 11.5000 4.0000-10.0000 Lymphocytes % (test code = Lymphocytes %) 18.1000 % 22.400 0-43.6000 MID% (test code = MID%) 4.6000 % 1.2000-11.2000 Neutrophils % (test code = Neutrophils %) 77.3000 % 48.900 0-69.9000 Lymphocytes (test code = Lymphocytes) 2.1000 1.2000-3.2 000 MID (test code = MID) 0.5000 0.1000-1.1000 Neutrophils (test code = Neutrophils) 8.9000 1.5000-6.7 000 RBC (test code = RBC) 4.0400 3.7000-4.9000 HGB (test code = HGB) 13.0000 g/dL 11.2000-18.0000 HCT (test code = HCT) 40.9000 % 34.0000-44.0000 MCV (test code = MCV) 101.2000 fL 80.0000-94.0000 MCH (test code = MCH) 32.2000 pg 27.0000-34.0000 MCHC (test code = MCHC) 31.8000 g/dL 31.5000-36.0000 RDW (test code = RDW) 16.4000 11.0000-18.0000 PLT (test code = PLT) 195.0000 140.0000-440.0000 MPV (test code = MPV) 8.7000 fL 6.8000-10.6000 [id number] 13:33:00 Test Item Value Reference Range Comments Creatinine (test code = Creatinine) 0.8300 mg/dL 0.7600-1.270 0 Glucose (test code = Glucose) 110.0000 mg/dL 65.0000-99.0000 BUN (test code = BUN) 14.0000 mg/dL 8.0000-27.0000 eGFR Bzh-Frjphpb-Niiernoi (test code = 87.0000 eGFR Mnf-Eayfoaf-Ltozexvf) eGFR -Yemeni (test code = eGFR 101.0000 -Yemeni) BUN/Creat Ratio (test code = BUN/Creat 17.0000 10.0000-2 4.0000 Ratio) Sodium (test code = Sodium) 139.0000 mmol/L 134.0000-144.0000 Potassium (test code = Potassium) 4.8000 mmol/L 3.5000-5.2000 Chloride (test code = Chloride) 101.0000 mmol/L 96.0000-106.0000 CO2 (test code = CO2) 25.0000 mmol/L 20.0000-29.0000 Calcium (test code = Calcium) 9.0000 mg/dL 8.6000-10.2000 Protein, Total (test code = Protein, 8.2000 g/dL 6.0000-8.50 00 Total) Albumin (test code = Albumin) 3.3000 g/dL 2.9000-4.4000 Globulin (test code = Globulin) 4.9000 g/dL 2.2000-3.9000 A/G Ratio (test code = A/G Ratio) 0.7000 0.7000-1.7000 Bilirubin, Total (test code = Bilirubin, 1.0000 mg/dL 0.0000- 1.2000 Total) Alkaline Phosphatase (test code = 79.0000 39.0000-117.00 00 Alkaline Phosphatase) AST (SGOT) (test code = AST (SGOT)) 8.0000 0.0000-40.00 00 ALT (SGPT) (test code = ALT (SGPT)) 9.0000 0.0000-44.00 00 Iron, Total (test code = Iron, Total) 46.0000 38.0000-16 9.0000 TIBC (test code = TIBC) 272.0000 250.0000-450.0000 UIBC (test code = UIBC) 226.0000 111.0000-343.0000 % Iron Saturation (test code = % Iron 17.0000 % 15.0000-55 .0000 Saturation) Vitamin B12 (test code = Vitamin B12) 293.0000 pg/mL 232.0000-1 245.0000 Folate (test code = Folate) 9.0000 ng/mL Ferritin (test code = Ferritin) 100.0000 ng/mL 30.0000-400.0000 [id number] 13:33:00 Test Item Value Reference Range Comments IGG (test code = IGG) 696.0000 mg/dL 603.6628-1416.0000 IGA (test code = IGA) 56.0000 mg/dL 61.0000-437.0000 IGM (test code = IGM) 3109.0000 mg/dL 15.0000-143.0000 Alpha-1 Globulin (test code 0.3000 g/dL 0.0000-0.4000 = Alpha-1 Globulin) Alpha-2 Globulin (test code 0.8000 g/dL 0.4000-1.0000 = Alpha-2 Globulin) Beta Globulin (test code = 3.3000 g/dL 0.7000-1.3000 Beta Globulin) Gamma Globulin (test code = 0.5000 g/dL 0.4000-1.8000 Gamma Globulin) M-Damian (test code = 2.4000 g/dL 0.0000-0.0000 M-Damian) Immunofixation Interp, Serum Comment Immunofixation shows (test code = Immunofixation IgM monoclonal protein with Interp, Serum) kappa light chain specificity PE Note (test code = PE Comment Protein Note) electrophoresis scan will follow via computer, mail, or internal control consultant delivery [place] Free Light Chain (test 41.1000 mg/L 3.3000-19.4000 code = [place] Free Light Chain) Lambda Free Light Chain 13.9000 mg/L 5.7000-26.3000 (test code = Lambda Free Light Chain) [place]/Lambda Free Ratio 2.9600 0.2600-1.6500 (test code = [place]/Lambda Free Ratio) Beta-2 Microglobulin (test 2.2000 mg/L 0.6000-2.4000 code = Beta-2 Microglobulin) [facility] [id number] 13:33:00 Test Item Value Reference Range Comments [facility] Comments (test code = DUP Duplicate procedure [facility] Comments) ordered. TEST: [id number] Protein Electro.,S Vitamin [id number] 13:33:00 Test Item Value Reference Range Comments Vitamin B12 (test code = Vitamin B12) 293.0000 pg/mL 232.0000-1 245.0000 TIBC (test code = TIBC) 272.0000 250.0000-450.0000 UIBC (test code = UIBC) 226.0000 111.0000-343.0000 Iron, Total (test code = Iron, Total) 46.0000 38.0000-16 9.0000 Protein, Total (test code = Protein, 8.2000 g/dL 6.0000-8.50 00 Total) Globulin (test code = Globulin) 4.7000 g/dL 1.5000-4.5000 Albumin (test code = Albumin) 3.3000 g/dL 2.9000-4.4000 Bilirubin, Total (test code = Bilirubin, 1.0000 mg/dL 0.0000- 1.2000 Total) BUN (test code = BUN) 14.0000 mg/dL 8.0000-27.0000 Glucose (test code = Glucose) 110.0000 mg/dL 65.0000-99.0000 Creatinine (test code = Creatinine) 0.8300 mg/dL 0.7600-1.270 0 Calcium (test code = Calcium) 9.0000 mg/dL 8.6000-10.2000 A/G Ratio (test code = A/G Ratio) 0.7000 1.2000-2.2000 eGFR -Yemeni (test code = eGFR 101.0000 -Yemeni) eGFR Gcu-Vfanjqm-Khzexgcs (test code = 87.0000 eGFR Xwi-Mysutrl-Mlmfowvn) BUN/Creat Ratio (test code = BUN/Creat 17.0000 10.0000-2 4.0000 Ratio) % Iron Saturation (test code = % Iron 17.0000 % 15.0000-55 .0000 Saturation) Alkaline Phosphatase (test code = 79.0000 39.0000-117.00 00 Alkaline Phosphatase) ALT (SGPT) (test code = ALT (SGPT)) 9.0000 0.0000-44.00 00 AST (SGOT) (test code = AST (SGOT)) 8.0000 0.0000-40.00 00 Chloride (test code = Chloride) 101.0000 mmol/L 96.0000-106.0000 CO2 (test code = CO2) 25.0000 mmol/L 20.0000-29.0000 Potassium (test code = Potassium) 4.8000 mmol/L 3.5000-5.2000 Sodium (test code = Sodium) 139.0000 mmol/L 134.0000-144.0000 Ferritin (test code = Ferritin) 100.0000 ng/mL 30.0000-400.0000 Folate (test code = Folate) 9.0000 ng/mL [id number] 13:33:00 Test Item Value Reference Range Comments IGA (test code = IGA) 56.0000 mg/dL 61.0000-437.0000 IGG (test code = IGG) 696.0000 mg/dL 603.7049-3528.0000 IGM (test code = IGM) 3109.0000 mg/dL 15.0000-143.0000 Alpha-1 Globulin (test code 0.3000 g/dL 0.0000-0.4000 = Alpha-1 Globulin) Alpha-2 Globulin (test code 0.8000 g/dL 0.4000-1.0000 = Alpha-2 Globulin) Beta Globulin (test code = 3.3000 g/dL 0.7000-1.3000 Beta Globulin) Gamma Globulin (test code = 0.5000 g/dL 0.4000-1.8000 Gamma Globulin) M-Damian (test code = 2.4000 g/dL 0.0000-0.0000 M-Damian) Immunofixation Interp, Serum Comment Immunofixation shows (test code = Immunofixation IgM monoclonal protein with Interp, Serum) kappa light chain specificity PE Note (test code = PE Comment Protein Note) electrophoresis scan will follow via computer, mail, or internal control consultant delivery [place]/Lambda Free Ratio 2.9600 0.2600-1.6500 (test code = [place]/Lambda Free Ratio) [place] Free Light Chain (test 41.1000 mg/L 3.3000-19.4000 code = [place] Free Light Chain) Beta-2 Microglobulin (test 2.2000 mg/L 0.6000-2.4000 code = Beta-2 Microglobulin) Lambda Free Light Chain 13.9000 mg/L 5.7000-26.3000 (test code = Lambda Free Light Chain) [id number] 09:22:00 Test Item Value Reference Range Comments WBC (test code = WBC) 9.1000 4.0000-10.0000 Lymphocytes % (test code = Lymphocytes %) 16.9000 % 22.400 0-43.6000 MID% (test code = MID%) 4.4000 % 1.2000-11.2000 Neutrophils % (test code = Neutrophils %) 78.7000 % 48.900 0-69.9000 Lymphocytes (test code = Lymphocytes) 1.5000 1.2000-3.2 000 MID (test code = MID) 0.4000 0.1000-1.1000 Neutrophils (test code = Neutrophils) 7.2000 1.5000-6.7 000 RBC (test code = RBC) 4.1500 3.7000-4.9000 HGB (test code = HGB) 13.5000 g/dL 11.2000-18.0000 HCT (test code = HCT) 42.1000 % 34.0000-44.0000 MCV (test code = MCV) 101.5000 fL 80.0000-94.0000 MCH (test code = MCH) 32.6000 pg 27.0000-34.0000 MCHC (test code = MCHC) 32.1000 g/dL 31.5000-36.0000 RDW (test code = RDW) 17.0000 11.0000-18.0000 PLT (test code = PLT) 209.0000 140.0000-440.0000 MPV (test code = MPV) 8.4000 fL 6.8000-10.6000 [id number] 09:22:00 Test Item Value Reference Range Comments HCT (test code = HCT) 42.1000 % 34.0000-44.0000 Lymphocytes % (test code = Lymphocytes %) 16.9000 % 22.400 0-43.6000 MID% (test code = MID%) 4.4000 % 1.2000-11.2000 Neutrophils % (test code = Neutrophils %) 78.7000 % 48.900 0-69.9000 RDW (test code = RDW) 17.0000 11.0000-18.0000 MCV (test code = MCV) 101.5000 fL 80.0000-94.0000 MPV (test code = MPV) 8.4000 fL 6.8000-10.6000 MCHC (test code = MCHC) 32.1000 g/dL 31.5000-36.0000 HGB (test code = HGB) 13.5000 g/dL 11.2000-18.0000 WBC (test code = WBC) 9.1000 4.0000-10.0000 Neutrophils (test code = Neutrophils) 7.2000 1.5000-6.7 000 PLT (test code = PLT) 209.0000 140.0000-440.0000 Lymphocytes (test code = Lymphocytes) 1.5000 1.2000-3.2 000 MID (test code = MID) 0.4000 0.1000-1.1000 MCH (test code = MCH) 32.6000 pg 27.0000-34.0000 RBC (test code = RBC) 4.1500 3.7000-4.9000 Assessments Condition Name Status Diagnosis Date Treating Clinici an Acquired absence of left leg below knee Active 0 Acquired absence of left leg below knee Active 0 Acquired absence of left leg below knee Active 0 Encounters Start End Encounter Admission Attending Care Care Encounter Date/Time Date/Time Type Type Clinicians Facility Department ID 2020-12-01 2020-12-01 Outpatient [facility] n [id number] 00:00:00 00:00:00 [facility] [place] 2020-11-30 2020-11-30 Justin [facility] [id number] 00:00:00 00:00:00 Kathie [facility] [place] 2020-11-29 2020-11-29 Outpatient Rupert Chastitykhanh n [id number] 00:00:00 00:00:00 [facility] [place] 2020-11-24 2020-11-24 Outpatient Rupert Anderson rn [id number] 00:00:00 00:00:00 [facility] 2020-11-18 2020-11-18 Outpatient Rupert Emery n [id number] 00:00:00 00:00:00 [facility] [place] 2020-11-09 2020-11-09 Outpatient Rupert Anderson rn [id number] 00:00:00 00:00:00 [facility] [place] 2020-11-08 2020-11-08 Outpatient Rupert Chastitykhanh n [id number] 00:00:00 00:00:00 [facility] [place] 2020-11-06 2020-11-06 Outpatient Rupert Anderson rn [id number] 00:00:00 00:00:00 [facility] 2020-11-02 2020-11-02 Justin Royal [facility] [id number] 00:00:00 00:00:00 Kathie [facility] [place] 2020-10-20 2020-10-20 Outpatient Chastitykhanh Chastitykhanh n [id number] 00:00:00 00:00:00 [facility] [place] 2020-10-19 2020-10-19 Outpatient Rupert Chastitykhanh n [id number] 00:00:00 00:00:00 [facility] [place] 2020-09-24 2020-09-24 Outpatient Rupert Chastitykhanh n [id number] 00:00:00 00:00:00 [facility] [place] 2020-06-15 2020-06-15 Outpatient Rupert Chastitykhanh n [id number] 00:00:00 00:00:00 [facility] [place] 2020-06-08 2020-06-08 Outpatient [facility] n [id number] 00:00:00 00:00:00 n [facility] [place] 2020-06-04 2020-06-04 Outpatient [facility] n [id number] 00:00:00 00:00:00 [facility] [place] 2020-01-29 2020-02-12 Bharath Blank [facility] [id number] 08:46:07 17:00:00 Bharath Stack 2020-01-22 2020-01-22 Appointment Sreekanth, [facility] [id number] 10:00:00 10:00:00 ; Bharath Stack MD 2019-06-23 2019-11-10 Bharath Blank [facility] [id number] 10:19:46 17:00:00 Bharath Stack 2019-11-04 2019-11-04 Bharath Blank [facility] [id number] 08:43:37 17:00:00 Bharath Stack 2019-10-23 2019-10-23 Appointment Sreekanth, [facility] [id number] 10:00:00 10:00:00 ; Bharath Stack MD 2019-09-25 2019-09-25 Appointment [facility] [id number] 10:00:00 10:00:00 ; Marito Michael MD 2019-07-24 2019-07-24 Appointment Sreekanth, [facility] [id number] 10:00:00 10:00:00 ; Bharath Stack MD 2019-07-24 2019-07-24 Appointment Sreekanth, [facility] [id number] 10:00:00 10:00:00 ; Bharath Stack MD 2019-06-19 2019-06-19 Appointment Sreekanth, [facility] [id number] 10:00:00 10:00:00 ; Bharath Stack MD 2019-04-09 2019-04-09 Appointment Sreekanth, [facility] [id number] 10:00:00 10:00:00 ; Bharath Stack MD 2014-05-18 2014-05-18 [facility] n [id number] 00:00:00 00:00:00 n [facility] Payers Payer Name Policy Type Policy Number Effective Date Expiration D ate Social History Smoking Status Start Date Stop Date Current every day smoker 2020-11-30 00:00:00 2020-11-30 00:0 0:00 Social History Observation Description Sex Male Vital Signs Vital Name Observation Time Observation Value Comments BMI 2020-11-30 14:35:17 30.3000 BP lopez 2020-11-30 14:35:17 70.0000 mm[Hg] Bdy height 2020-11-30 14:35:17 74.0000 [in_i] SaO2% BldA PulseOx 2020-11-30 14:35:17 96.0000 % Heart rate 2020-11-30 14:35:17 80.0000 /min Resp rate 2020-11-30 14:35:17 18.0000 /min BP sys 2020-11-30 14:35:17 119.0000 mm[Hg] Body temperature 2020-11-30 14:35:17 98.2000 [degF] Weight 2020-11-30 14:35:17 236.0000 [lb_av] BP lopez 2020-11-02 09:12:38 87.0000 mm[Hg] Bdy height 2020-11-02 09:12:38 74.0000 [in_i] SaO2% BldA PulseOx 2020-11-02 09:12:38 95.0000 % Heart rate 2020-11-02 09:12:38 75.0000 /min Resp rate 2020-11-02 09:12:38 20.0000 /min BP sys 2020-11-02 09:12:38 153.0000 mm[Hg] Body temperature 2020-11-02 09:12:38 98.1000 [degF]
== END 2020-12-04 17:44 | disposition home or self-care (01) ==
LOC: ER 13:29
DX: I11.0 Hypertensive heart disease with heart failure (principal); I50.9 Heart failure, unspecified; J44.9 Chronic obstructive pulmonary disease, unspecified; I42.9 Cardiomyopathy, unspecified; D89.0 Polyclonal hypergammaglobulinemia; I48.91 Unspecified atrial fibrillation; F17.200 Nicotine dependence, unspecified, uncomplicated; I25.2 Old myocardial infarction; R42 Dizziness and giddiness; R79.89 Other specified abnormal findings of blood chemistry
CPT/HCPCS: 93005; 99285; 96374; 36415; 85025; 80053; 81001; 84484; 83880; 71045; 93010; J1940

== ENCOUNTER → 2020-12-08 | Outpatient (CLI) | payer MEDICARE, OTHER ==
[2020-12-08 13:45] LABS: HEMATOCRIT 42.1 % (37.9-51.0); HEMOGLOBIN 13.7 g/dL (13.5-17.0); MEAN CORPUSCULAR HEMOGLOBIN 33.1 pg (27.0-33.4); MEAN CORPUSCULAR HGB CONC 32.5 g/dL (32.0-36.0); MEAN CORPUSCULAR VOLUME 102 fl (80-97); PLATELET COUNT 200 10^3/uL (150-450); RED BLOOD COUNT 4.13 10^6/uL (4.35-5.55); RED CELL DISTRIBUTION WIDTH 17.1 % (11.5-14.0); WHITE BLOOD COUNT 11.3 10^3/uL (4.0-10.5)
[2020-12-08 14:15] LABS: ALKALINE PHOSPHATASE 79 U/L (38-126); ANION GAP 5 (5-19); ASPARTATE AMINO TRANSFERASE 15 U/L (17-59); BILIRUBIN,DIRECT 0.2 mg/dL (0.0-0.4); BILIRUBIN,TOTAL 0.7 mg/dL (0.2-1.3); BLOOD UREA NITROGEN 21 mg/dL (7-20); CALCIUM 9.4 mg/dL (8.4-10.2); CARBON DIOXIDE 34 mmol/L (22-30); CHLORIDE 100 mmol/L (98-107); CHOLESTEROL 139.95 mg/dL (0-200); GLUCOSE 113 mg/dL (75-110); TOTAL PROTEIN 8.9 g/dL (6.3-8.2); TRIGLYCERIDES 94 mg/dL (<150)
[2020-12-08 14:25] LABS: DIRECT LDL 100 mg/dL (<100)
== END ==
LOC: OD 12:22
PROVIDERS: ATTEND Physician Assistant
DX: E78.5 Hyperlipidemia, unspecified (principal); I48.91 Unspecified atrial fibrillation; I10 Essential (primary) hypertension
CPT/HCPCS: 36415; 80048; 80061; 80076; 83735; 84443; 85027